=== PATIENT | male | born 2000 | race Caucasian/White ===

== ENCOUNTER 2021-04-14 16:28 | Inpatient (IN) | payer BC, SELFPAY ==
[2021-04-14] VITALS (7 sets, daily range): BP systolic 111–151; BP diastolic 64–94; PULSE 97–121; RESP 18–31; TEMP 37.2–39.6; O2SAT 89–93; BMI 38.9
--- NOTE | ~2021-04-14 | XR_ITS ---
EXAMINATION: XR CHEST CLINICAL INFORMATION: Cough, coronary 19 COMPARISON: None TECHNIQUE: Frontal view of the chest was obtained. FINDINGS: The lungs are moderately expanded with patchy opacities seen in both lungs suggestive of diffuse infiltrates. No pleural effusion. Heart size and pulmonary vascularity is normal. No gross bony abnormality seen. XR/XR chest 1V IMPRESSION: Findings consistent diffuse patchy bilateral infiltrates.
--- NOTE | ~2021-04-14 | CT_ITS ---
EXAMINATION: CT ANGIOGRAM OF THE CHEST WITH AND WITHOUT CONTRAST (CT PULMONARY ANGIOGRAM FOR PE) CLINICAL INFORMATION: Reason for Exam cough, hypoxia, covid 19 COMPARISON: April 14, 2021 TECHNIQUE: Prior to contrast administration, noncontrast localization images were obtained. Subsequently, multidetector volumetric imaging was performed from the thoracic inlet to below the diaphragms following the administration of 65 mL Omnipaque 350 intravenous contrast. No contrast reaction reported Sagittal, coronal, and MIP oblique sagittal reformatted images were obtained on the CT workstation, uploaded to PACS, and reviewed. This CT examination was performed using dose optimization techniques as appropriate, variously including the following: *Automated exposure control *Adjustment of mA and/or kV according to patient size (this includes techniques or standardized protocols for targeted exams where dose is matched to indication/reason for exam; i.e. extremities or head) *Use of iterative reconstruction technique Total exam dose-length product 229 mGy-cm FINDINGS: QUALITY OF STUDY/CONTRAST BOLUS: Satisfactory. Motion artifact is present degrading evaluation of more distal vessels. PULMONARY ARTERIES: No central or segmental pulmonary emboli. THORACIC AORTA: No aneurysm or dissection. LUNG: There is diffuse bilateral interstitial and airspace disease with air bronchograms present which has progressed significantly since study of April 14, 2021. PLEURA: No pleural effusion or pneumothorax. MEDIASTINUM: Normal heart size. No pericardial effusion. There is right hilar lymphadenopathy present. Evaluation of mediastinal lymphadenopathy is limited due to streak artifact from dense contrast material. No evidence of septal bowing or right heart strain. CHEST WALL/AXILLA: No axillary or internal mammary lymphadenopathy. OSSEOUS STRUCTURES: No acute or suspicious osseous abnormality. UPPER ABDOMEN: Unremarkable. No reflux of contrast into the hepatic veins to suggest elevated right heart pressures. CT/CT angio chest PE protocol IMPRESSION: Significant progression in diffuse bilateral interstitial and airspace disease since previous study of April 14, 2021. No evidence of acute pulmonary artery embolus or thoracic aortic dissection or aneurysm. VTE: negative
--- NOTE | ~2021-04-14 | XR_ITS ---
EXAMINATION: XR CHEST CLINICAL INFORMATION: Reevaluate Covid Pneumonia. COMPARISON: Chest 04/23/2021 TECHNIQUE: Frontal view of the chest was obtained. FINDINGS: There is diffuse bilateral interstitial and airspace disease with air bronchograms unchanged since 04/23/2011. The heart size and pulmonary vascularity is normal. No gross bony abnormality seen. XR/XR chest 1V IMPRESSION: Diffuse bilateral interstitial and airspace disease with air bronchograms unchanged since 04/23/2011.
--- NOTE | ~2021-04-14 | CT_ITS ---
EXAMINATION: CT ANGIOGRAM OF THE CHEST WITH AND WITHOUT CONTRAST (CT PULMONARY ANGIOGRAM FOR PE) CLINICAL INFORMATION: Reason for Exam hypoxia. Covid positi. PE? Pnuemonia? COMPARISON: None TECHNIQUE: Prior to contrast administration, noncontrast localization images were obtained. Subsequently, multidetector volumetric imaging was performed from the thoracic inlet to below the diaphragms following the administration of 80 mL Omnipaque 350 intravenous contrast. No contrast reaction reported Sagittal, coronal, and MIP oblique sagittal reformatted images were obtained on the CT workstation, uploaded to PACS, and reviewed. This CT examination was performed using dose optimization techniques as appropriate, variously including the following: *Automated exposure control *Adjustment of mA and/or kV according to patient size (this includes techniques or standardized protocols for targeted exams where dose is matched to indication/reason for exam; i.e. extremities or head) *Use of iterative reconstruction technique Total exam dose-length product 669 mGy-cm FINDINGS: QUALITY OF STUDY/CONTRAST BOLUS: Satisfactory. PULMONARY ARTERIES: No central or segmental pulmonary emboli. THORACIC AORTA: No aneurysm or dissection. LUNG: Bilateral, diffuse patchy groundglass airspace opacities which can be seen in the setting of atypical infectious processes. PLEURA: No pleural effusion or pneumothorax. MEDIASTINUM: Normal heart size. No pericardial effusion. No hilar or mediastinal lymphadenopathy. No evidence of septal bowing or right heart strain. CHEST WALL/AXILLA: No axillary or internal mammary lymphadenopathy. OSSEOUS STRUCTURES: No acute or suspicious osseous abnormality. UPPER ABDOMEN: Unremarkable. No reflux of contrast into the hepatic veins to suggest elevated right heart pressures. CT/CT angio chest PE protocol IMPRESSION: 1. No pulmonary embolism. 2. Diffuse bilateral patchy groundglass airspace opacities which can be seen in the setting of atypical infectious processes, including COVID-19 infection. VTE: negative
--- NOTE | 2021-04-14 16:50 | ECG_ITS ---
Test Reason : CHESTPAIN Blood Pressure : / mmHG Vent. Rate : 117 BPM Atrial Rate : 117 BPM P-R Int : 156 ms QRS Dur : 076 ms QT Int : 300 ms P-R-T Axes : 042 065 003 degrees QTc Int : 418 ms Sinus tachycardia T wave abnormality, consider lateral ischemia Abnormal ECG No previous ECGs available Referred By: Yao Ann Electronically Signed By:Best Lezama
[2021-04-14 17:25] LABS: Hemoglobin 16.5 g/dl (14.0-18.0); Mean Corpuscular HGB Conc 36.7 g/dl (31.0-36.0); Mean Corpuscular Hemoglobin 29.7 pg (27.0-33.0); Mean Corpuscular Volume 81.1 fL (80-98); Mean Platelet Volume 9.9 fL (9.4-12.4); Platelet Count 140 X10*3/uL (160-400); Red Blood Count 5.55 X10*6/uL (4.60-5.80); Red Cell Distribution Width 12.3 % (11.0-16.0)
[2021-04-14 17:26] LABS: COVID-19 Test Positive (Negative); IDNOW Serial# 9DD0AD1C
[2021-04-14 17:44] LABS: Anion Gap 18 (12-20); Blood Urea Nitrogen 10 mg/dL (9-16); Calcium 8.3 mg/dL (8.4-10.2); Carbon Dioxide 20 mmol/L (22-29); Chloride 96 mmol/L (96-108); Creatinine Clr Calc Pharmacy 185.2; Estimated Glomerular Filt Rate > 60; Glucose Random 109 mg/dL (60-115); Potassium 3.8 mmol/L (3.3-5.1); Sodium 130 mmol/L (135-145)
[2021-04-14] MEDS: 0.9 % Sodium Chloride 1,000 ML 999 ML IV (19:15)
--- NOTE | 2021-04-14 19:27 | ED_ITS ---
HPI - General Adult General Chief complaint: General Medical Stated complaint: Vomiting Time Seen by Provider: 04/14/21 18:53 Source: patient Mode of arrival: ambulatory Limitations: no limitations History of Present Illness HPI narrative: Patient presents to ED for COVID like symptoms. Patient presents to ED for shortness of breath, vomiting, and lethargy. Patient was referred from Urgent Care for hypoxia. Patient states this is day 7 of having COVID symptoms. Patient states he was exposed to his roommate. Related Data Home Medications Medication Instructions Recorded Confirmed No Known Home Meds 04/14/21 04/14/21 Allergies Allergy/AdvReac Type Severity Reaction Status Date / Time No Known Allergies Allergy Verified 04/14/21 16:50 Review of Systems Review of Systems: Yes all other systems are reviewed and are negative Constitutional: Constitutional: Reports as per HPI, Reports no additional constitutional complaints, Reports body ache(s), Reports chills and Reports fever(s) Eyes: Eyes: Reports as per HPI and Reports no additional eye complaints ENT: Reports system reviewed and no additional complaints, except as documented and Reports as per HPI Cardiovascular: Cardiovascular: Reports as per HPI, Reports no additional ca rdiovascular complaints and Reports dyspnea Respiratory: Respiratory: Reports as per HPI, Reports no additional respiratory complaints and Reports dyspnea Gastrointestinal: Gastrointestinal: Reports as per HPI and Reports no additional gastrointestinal complaints Musculoskeletal: Musculoskeletal: Reports no additional musculoskeletal co mplaints and Reports as per HPI Integumentary/Breasts: Skin/Breast: Reports system reviewed and no additional complaints, except as docu and Reports as per HPI [facility] Social History Social History Alcohol intake: current Alcohol intake frequency: a few times a week Patient Tobacco Use Status: Never used Tobacco Use of substances other than those prescribed or required for medical reasons: No Advance Directives: No Advance Directives Information Provided: No Physical Exam Vital Signs: Vital Signs: Last Vital Signs Temp 99.0 F 04/14/21 22:25 Pulse 97 04/14/21 22:25 Resp 30 H 04/14/21 22:25 BP 125/70 04/14/21 22:25 Pulse Ox 91 L 04/14/21 22:25 Oxygen Flow Rate 3 04/14/21 18:07 Body Mass Index 38.9 Const: General: cooperative, healthy appearing, comfortable and well developed Orientation/consciousness: patient oriented x3 HENMT: Head: Yes normal to inspection, Yes No palpable skull fracture present and Yes normocephalic Eyes: General: appearance normal, both eyes and all related structures Neck: Neck: Yes normal visual inspection, Yes full ROM, Yes no lymphadenopath y, Yes no meningeal signs, Yes trachea midline, Yes supple and No tender Chest: Chest palpation & inspection: normal inspection of the chest and normal palpation of entire chest wall Resp: Other: Hypoxic Effort & Inspection: normal respiratory effort and able to speak in complete sentences Cardio: Jugular venous distension: no JVD Heart sounds: S1 normal heart sound present and S2 normal heart sound present GI: Inspection: Yes normal to inspection and Yes abdominal wall ecchymosis Palpation (GI): Soft to palpation, not firm, nontender, no guarding and not rigid : General: No CVA tenderness and Yes no CVA tenderness Back/Spine/Pelvis: Back: no CVA tenderness, No CVA tenderness and No back tenderness Skin: General skin exam: no rashes or lesions noted and elasticity normal Neuro: General: patient oriented x3, gait normal, no meningeal signs and CN's II-XI intact bilaterally Cranial nerves: Yes CN's II-XII intact bilaterally Extrem: General: Yes normal to inspection and Yes full ROM Course Course Course Narrative: Patient will have medical evaluation. Reevaluation(s) Reevaluation #1: Patient desaturated oxygen 89% on room air. Decadron ordered. IV antibiotics and fluids ordered. Patient was sent for chest CT to rule out PE a COVID pneumonia. Patient will be admitted. Time: 07:34 Reevaluation #2: Case presented hospitalist. Patient to be admitted for hypoxia due to COVID. Chest CTA pending. On room air O2 saturation 85%. On 3 L oxygen O2 sat 93% Time: 20:58 Reevaluation #3: Chest CT shows COVID pneumonia. Time: 22:54 Medical Decision Making MDM Narrative Medical decision making narrative: COVID pneumonia Lab Data Result diagrams: 04/14/21 17:12 04/14/21 17:12 Labs: Lab Results 04/14/21 04/14/21 04/14/21 Range/Units 17:12 17:12 17:12 WBC 4.0 L (4.8-10.8) X10*3/uL RBC 5.55 (4.60-5.80) X10*6/uL Hgb 16.5 (14.0-18.0) g/dl Hct 45.0 (42-52) % MCV 81.1 (80-98) fL MCH 29.7 (27.0-33.0) pg MCHC 36.7 H (31.0-36.0) g/dl RDW 12.3 (11.0-16.0) % Plt Count 140 L (160-400) X10*3/uL MPV 9.9 (9.4-12.4) fL Absolute Nucleated RBC 0.000 (0.0-0.012) X10*3/uL Nucleated RBC % (auto) 0.0 (0.0-0.2) /100WBC Sodium 130 L (135-145) mmol/L Potassium 3.8 (3.3-5.1) mmol/L Chloride 96 (96-108) mmol/L Carbon Dioxide 20 L (22-29) mmol/L Anion Gap 18 (12-20) BUN 10 (9-16) mg/dL Creatinine 0.88 (0.5-1.4) mg/dL Estim Creat Clear Calc 185.2 Estimated GFR > 60 Random Glucose 109 (60-115) mg/dL Lactic Acid (0.5-2.0) mmol/L Calcium 8.3 L (8.4-10.2) mg/dL Troponin I High Sens (<3.5-35.0) ng/L COVID-19 (SUZE) Positive A (Negative) COVID-19 Clin Com See Note 04/14/21 04/14/21 Range/Units 19:39 19:39 WBC (4.8-10.8) X10*3/uL RBC (4.60-5.80) X10*6/uL Hgb (14.0-18.0) g/dl Hct (42-52) % MCV (80-98) fL MCH (27.0-33.0) pg MCHC (31.0-36.0) g/dl RDW (11.0-16.0) % Plt Count (160-400) X10*3/uL MPV (9.4-12.4) fL Absolute Nucleated RBC (0.0-0.012) X10*3/uL Nucleated RBC % (auto) (0.0-0.2) /100WBC Sodium (135-145) mmol/L Potassium (3.3-5.1) mmol/L Chloride (96-108) mmol/L Carbon Dioxide (22-29) mmol/L Anion Gap (12-20) BUN (9-16) mg/dL Creatinine (0.5-1.4) mg/dL Estim Creat Clear Calc Estimated GFR Random Glucose (60-115) mg/dL Lactic Acid 1.4 (0.5-2.0) mmol/L Calcium (8.4-10.2) mg/dL Troponin I High Sens 9.7 (<3.5-35.0) ng/L COVID-19 (SUZE) (Negative) COVID-19 Clin Com ECG Data Interpretation: Sinus tachycardia. Ventricular rate 117. Pr interval 156. QRS 76. QTC 418. Negative STEMI Discharge Plan Discharge Clinical Impression: Pneumonia due to 2019-nCoV Patient Disposition: Admitted As Inpatient
[2021-04-14] MEDS: cefTRIAXone sodium 1 GM in 0.9 % Sodium Chloride 50 ML IV (19:40)
[2021-04-14] MEDS: Ketorolac Tromethamine 15 MG/ML VIAL IVPUSH (19:40)
[2021-04-14] MEDS: dexAMETHasone sod phosphate 10 MG/ML VIAL IVPUSH (19:40)
[2021-04-14] MEDS: iohexoL 350 MG/ML 100 ML INFUS..BTL IV (19:57)
[2021-04-14 20:15] LABS: Troponin-I High Sensitivity 9.7 ng/L (<3.5-35.0)
[2021-04-14 20:22] LABS: Lactic Acid 1.4 mmol/L (0.5-2.0)
[2021-04-14] MEDS: Azithromycin 500 MG in 0.9 % Sodium Chloride 250 ML 125 MG IV (20:26)
[2021-04-14] MEDS: Acetaminophen 325 MG TABLET 650 MG PO (20:45)
--- NOTE | 2021-04-14 22:20 | PM.IMHP ---
History of Present Illness Date of Service: 04/14/21 Chief Complaint: Shortness of breath 20-year-old male with no significant past medical history presented to the hospital with a chief complaint of shortness of breath. Patient reports that his roommate has COVID-19 positive and was exposed about 7 days ago and over the past few days he has been having generalized weakness/with the dizziness shortness of breath/dyspnea on exertion, dry cough. Denies any chest pain or palpitations. Complains of subjective fevers. Denies any sputum production. Patient does complains of nausea vomiting and diarrhea; denies any abdominal discomfort. Denies any symptoms. Review of all other systems is negative except mentioned above ER course: Per ER team patient on presentation noted to be 85% on room air, not in respiratory distress; on 2 L of oxygen patient oxygenation improved to 93%. CT chest showed no evidence of pulmonary embolism but noted diffuse ground-glass opacities consistent COVID-19 infection. Patient also received empiric ceftriaxone and azithromycin. Admitted to the hospital for further management. [facility] Medical History Acquired respiratory distress syndrome Social History Household Members: Friend(s) Housing: Apartment Do you presently have visiting nurse or other home services: No Alcohol intake: current Alcohol intake frequency: a few times a week Patient Tobacco Use Status: Never used Tobacco service: No Meds Allergies Allergy/AdvReac Type Severity Reaction Status Date / Time No Known Allergies Allergy Verified 04/14/21 16:50 Active Medications: Current Medications Generic Name Dose Route Start Last Admin Trade Name Freq PRN Reason Stop Dose Admin Acetaminophen 650 mg 04/14/21 22:14 Acetaminophen 325 Mg Tablet PO Q6H PRN Pain, Mild (Pain Scale 1-3) Albuterol Sulfate 2 puff 04/14/21 22:14 Albuterol Sulfate 90 Mcg 8 Gm Inhaler INHALE RQ4H PRN Shortness of Breath/Wheezing Azithromycin 500 mg 04/14/21 22:15 Azithromycin 500 Mg Tablet PO Q24H JUSTIN Dexamethasone 6 mg 04/15/21 09:00 Dexamethasone 6 Mg Tablet PO DAILY JUSTIN Enoxaparin Sodium 40 mg 04/14/21 22:15 Enoxaparin Sodium 40 Mg/0.4 Ml Syringe SUBCUT Q24H [facility] Ceftriaxone Sodium 1 gm/ 50 mls @ 100 mls/hr 04/14/21 22:15 Sodium Chloride IV Q24H JUSTIN Melatonin 6 mg 04/14/21 22:14 Melatonin 3 Mg Tablet PO BEDTIME PRN Insomnia Morphine Sulfate 1 mg 04/14/21 22:14 Morphine Sulfate 4 Mg/Ml Cartridge IVPUSH Q4H PRN SOB/Restlessness Senna 17.2 mg 04/14/21 22:14 Sennosides 8.6 Mg Tablet PO BEDTIME PRN Constipation Sodium Chloride 3 ml 04/15/21 00:00 0.9 % Sodium Chloride Flush 3 Ml Syringe IVFLUSH QSHIFT [facility] Home Medications Medication Instructions Recorded Confirmed Last Taken Type No Known Home Meds 04/14/21 04/14/21 Unknown History Physical Exam Vital Signs and Narrative: Vital Signs: Last Vital Signs Temp 103.2 F H 04/14/21 20:27 Pulse 116 H 04/14/21 20:27 Resp 28 H 04/14/21 20:27 BP 113/64 04/14/21 20:49 Pulse Ox 91 L 04/14/21 20:27 Oxygen Flow Rate 3 04/14/21 18:07 Body Mass Index 38.9 Gen: Appears be in no acute distress HEENT: NCAT, Moist mucosa. Pulmonary: Coarse breath sounds CVS: Normal S1-S2 Abdomen: BS+, Soft, Nontender Extremities: Warm well perfused Neuro: Alert and awake. Results Labs CBC and Chem 7: 05/01/21 05:26 05/01/21 05:26 Labs: Laboratory Results - last 24 hr 04/14/21 04/14/21 04/14/21 17:12 17:12 17:12 MCV 81.1 MCH 29.7 MCHC 36.7 H RDW 12.3 Plt Count 140 L MPV 9.9 Absolute Nucleated RBC 0.000 Nucleated RBC % (auto) 0.0 Anion Gap 18 Estim Creat Clear Calc 185.2 Estimated GFR > 60 Random Glucose 109 Lactic Acid Calcium 8.3 L Troponin I High Sens COVID-19 (SUZE) Positive A COVID-19 Clin Com See Note 04/14/21 04/14/21 19:39 19:39 MCV MCH MCHC RDW Plt Count MPV Absolute Nucleated RBC Nucleated RBC % (auto) Anion Gap Estim Creat Clear Calc Estimated GFR Random Glucose Lactic Acid 1.4 Calcium Troponin I High Sens 9.7 COVID-19 (SUZE) COVID-19 Clin Com Imaging Radiologist's Impressions: Impressions Chest CTA 04/14/21 19:18 IMPRESSION: 1. No pulmonary embolism. 2. Diffuse bilateral patchy groundglass airspace opacities which can be seen in the setting of atypical infectious processes, including COVID-19 infection. VTE: negative Assessment and Plan (1) Acquired respiratory distress syndrome: Status: Acute 20-year-old male with with no significant past medical history presented to the hospital with a chief complaint of shortness of breath/dyspnea on exertion; has history of COVID-19 exposure. Noted to be acute hypoxia secondary to positive COVID-19 infection. Admitted for further management. Acute hypoxic respiratory failure: In the setting of COVID-19 pneumonia. Patient not in respiratory distress. On 2 L of supplemental oxygen patient is saturating 93-95%. Albuterol inhaler p.r.n.. encouraged prone positioning. Continue Decadron 6 mg p.o. daily. Continue ceftriaxone azithromycin empirically. Will consult Infectious Disease for further recommendation. Of note: Patient has not been vaccinated with COVID-19 vaccine. Nausea vomiting/diarrhea: Likely in the setting of COVID-19 infection. Supportive care. GI prophylaxis: Pepcid DVT prophylaxis: Lovenox Code status: Full code Quality Stroke Does the patient have a stroke diagnosis?: No VTE Prior VTE?: No VTE Risk Level:: Medical - moderate - high VTE Device Contraindication: Treatment Not Indicated VTE Drug Contraindication: N/A - Med Ordered
[2021-04-14] MEDS: Enoxaparin Sodium 40 MG/0.4 ML SYRINGE SUBCUT (22:49)
[2021-04-15] VITALS (7 sets, daily range): BP systolic 125–151; BP diastolic 68–86; PULSE 74–97; RESP 18–20; TEMP 36.4–37.6; O2SAT 90–94; BMI 38.4
--- NOTE | 2021-04-15 00:32 | PC.NURSE ---
nurse to nurse given to simone SINGH on [facility]
[2021-04-15] MEDS: 0.9 % Sodium Chloride Flush 3 ML SYRINGE IVFLUSH ×3 (01:50→20:41)
[2021-04-15 03:19] LABS: D Dimer 4162 NG/ML
[2021-04-15] MEDS: Acetaminophen 325 MG TABLET 650 MG PO ×2 (04:35→20:41)
[2021-04-15 06:00] LABS: MANUAL DIFF FLAG NO
[2021-04-15 06:04] LABS: Basophils Percent Auto 0.2 % (0-2); Hematocrit 46.2 % (42-52); Hemoglobin 16.3 g/dl (14.0-18.0); Imm Gran Abs Auto 0.02 X10*3/uL (0.00-0.03); Imm Gran Pct Auto 0.5 % (0.0-0.4); Lymphocytes Percent Auto 23.1 % (20-40); Mean Corpuscular HGB Conc 35.3 g/dl (31.0-36.0); Mean Corpuscular Hemoglobin 29.9 pg (27.0-33.0); Mean Corpuscular Volume 84.8 fL (80-98); Mean Platelet Volume 11.9 fL (9.4-12.4); Monocytes Absolute Auto 0.4 X10*3/uL (0.1-1.2); Monocytes Percent Auto 8.7 % (2-11); Neutrophils Absolute Auto 2.8 X10*3/uL (2.0-8.3); Neutrophils Percent Auto 67.5 % (45-73); Red Blood Count 5.45 X10*6/uL (4.60-5.80); Red Cell Distribution Width 12.8 % (11.0-16.0); White Blood Count 4.2 X10*3/uL (4.8-10.8)
[2021-04-15 06:39] LABS: Anion Gap 20 (12-20); Blood Urea Nitrogen 14 mg/dL (9-16); Calcium 8.4 mg/dL (8.4-10.2); Carbon Dioxide 19 mmol/L (22-29); Chloride 101 mmol/L (96-108); Creatinine Clr Calc Pharmacy 170.3; Estimated Glomerular Filt Rate > 60; Glucose Random 133 mg/dL (60-115); Potassium 4.6 mmol/L (3.3-5.1); Sodium 135 mmol/L (135-145)
[2021-04-15 08:18] LABS: Ferritin 4409 ng/mL (20-250)
[2021-04-15] MEDS: dexAMETHasone sod phosphate 4 MG/ML VIAL 6 MG IVPUSH (09:01)
--- NOTE | 2021-04-15 09:50 | MHC.CM.PN ---
talked with pt who is independent and working it is not expected that he will need care when dcd
--- NOTE | 2021-04-15 10:56 | HO.PM.IMPN ---
Subjective Subjective Date of Service: 04/15/21 Interval History: seen and examined this AM he reports breathing slightly easier this AM ambulated in the room without much SOB (while on O2) Reports his symptoms started about 8 days ago. Reports he was at a bar prior to symptoms Reports he is unvaccinated asked him if he would like me to discuss with his family about his care -- he reports he has already spoken with his father on the phone Physical Exam Vital Signs: Vital Signs: Last Vital Signs Temp 97.6 F 04/15/21 08:00 Pulse 79 04/15/21 08:00 Resp 20 04/15/21 08:00 BP 141/86 H 04/15/21 08:00 Pulse Ox 93 04/15/21 08:00 Oxygen Flow Rate 3 04/14/21 18:07 Body Mass Index 38.4 General - no acute distress, appears comfortable Cardiovascular - RRR Lungs - no visible distress; auscultation deferred Abdomen - soft, nontender, no rebound or guarding Extremities - no edema bilaterally Neuro - awake and alert, no focal deficits Objective Data Current Medications Generic Name Dose Route Start Last Admin Trade Name Toddq PRN Reason Stop Dose Admin Acetaminophen 650 mg 04/14/21 22:14 04/15/21 04:35 Acetaminophen 325 Mg Tablet PO 650 mg Q6H PRN Administration Pain, Mild (Pain Scale 1-3) Albuterol Sulfate 2 puff 04/14/21 22:14 Albuterol Sulfate 90 Mcg 8 Gm Inhaler INHALE RQ4H PRN Shortness of Breath/Wheezing Dexamethasone Sodium Phosphate 6 mg 04/15/21 09:00 04/15/21 09:01 Dexamethasone Sod Phosphate 4 Mg/Ml Vial IVPUSH 04/24/21 09:01 6 mg DAILY JUSTIN Administration Enoxaparin Sodium 40 mg 04/14/21 22:15 04/14/21 22:49 Enoxaparin Sodium 40 Mg/0.4 Ml Syringe SUBCUT 40 mg Q24H JUSTIN Administration Melatonin 6 mg 04/14/21 22:14 Melatonin 3 Mg Tablet PO BEDTIME PRN Insomnia Morphine Sulfate 1 mg 04/14/21 22:31 Morphine Sulfate 2 Mg/Ml Cartridge IVPUSH Q4H PRN SOB/Restlessness Senna 17.2 mg 04/14/21 22:14 Sennosides 8.6 Mg Tablet PO BEDTIME PRN Constipation Sodium Chloride 3 ml 04/15/21 00:00 04/15/21 09:02 0.9 % Sodium Chloride Flush 3 Ml Syringe IVFLUSH 3 ml QSHIFT JUSTIN Administration Labs CBC & Chem 7: 04/15/21 05:25 04/15/21 05:25 Labs: Laboratory Results - last 24 hr 04/14/21 04/14/21 04/14/21 17:12 17:12 17:12 MCV 81.1 MCH 29.7 MCHC 36.7 H RDW 12.3 Plt Count 140 L MPV 9.9 Immature Gran % (Auto) Neut % (Auto) Lymph % (Auto) [place] % (Auto) Eos % (Auto) Baso % (Auto) Lymph # (Auto) [place] # (Auto) Eos # (Auto) Baso # (Auto) Abs Immat Gran (auto) Absolute Neuts (auto) Absolute Nucleated RBC 0.000 Nucleated RBC % (auto) 0.0 D-Dimer Anion Gap 18 Estim Creat Clear Calc 185.2 Estimated GFR > 60 Random Glucose 109 Lactic Acid Calcium 8.3 L Ferritin Troponin I High Sens COVID-19 (SUZE) Positive A COVID-19 Clin Com See Note 04/14/21 04/14/21 04/15/21 19:39 19:39 02:36 MCV MCH MCHC RDW Plt Count MPV Immature Gran % (Auto) Neut % (Auto) Lymph % (Auto) [place] % (Auto) Eos % (Auto) Baso % (Auto) Lymph # (Auto) [place] # (Auto) Eos # (Auto) Baso # (Auto) Abs Immat Gran (auto) Absolute Neuts (auto) Absolute Nucleated RBC Nucleated RBC % (auto) D-Dimer 4162 Anion Gap Estim Creat Clear Calc Estimated GFR Random Glucose Lactic Acid 1.4 Calcium Ferritin Troponin I High Sens 9.7 COVID-19 (SUZE) COVID-19 Clin Com 04/15/21 04/15/21 05:25 05:25 MCV 84.8 MCH 29.9 MCHC 35.3 RDW 12.8 Plt Count TNP MPV 11.9 Immature Gran % (Auto) 0.5 H Neut % (Auto) 67.5 Lymph % (Auto) 23.1 [place] % (Auto) 8.7 Eos % (Auto) 0.0 Baso % (Auto) 0.2 Lymph # (Auto) 1.0 L [place] # (Auto) 0.4 Eos # (Auto) 0.0 Baso # (Auto) 0.0 Abs Immat Gran (auto) 0.02 Absolute Neuts (auto) 2.8 Absolute Nucleated RBC 0.000 Nucleated RBC % (auto) 0.0 D-Dimer Anion Gap 20 Estim Creat Clear Calc 170.3 Estimated GFR > 60 Random Glucose 133 H Lactic Acid Calcium 8.4 Ferritin 4409 H Troponin I High Sens COVID-19 (SUZE) COVID-19 Clin Com Assessment and Plan (1) COVID-19: Status: Acute Assessment and Plan: This is a 20 yo M, who is unvaccinated for COVID-19, who initially went to urgent care for GI symptoms and was referred to the ED. He has been diagnosed with COVID-19 with typical findings on the CT scan. He is admitted for further treatment. 1. Acute Respiratory Failure with Hypoxia due to COVID 19 Saturations dropped to 85% on RA while in the ED saturations now 92+ on 3-4L by [place] Trend inflammatory biomarkers IV decadron 6mg - day 10/23 ID consult to see if Remdesivir would help, although he is now 8 days with symptoms and likely 10+ days from exposure 2. Viral Sepsis sepsis improving met sepsis criteria with tachypnea (in the 30s), tachycardia (120s), Fevers (TMax 103+), Leukopenia (4) No evidence of bacterial infection at this time, discontinue IV antibiotics Full Code DVT pptx, Lovenox Quality Stroke Does the patient have a stroke diagnosis?: No VTE Prior VTE?: No VTE Risk Level:: Medical - moderate - high VTE Device Contraindication: Treatment Not Indicated VTE Drug Contraindication: N/A - Med Ordered
[2021-04-15 11:45] LABS: Alanine Aminotransferase 164 U/L (0-40); Albumin Level 3.5 g/dL (3.5-5.0); Alkaline Phosphatase 42 U/L (39-117); Aspartate Amino Transferase 265 U/L (5-37); Bilirubin Direct 0.2 mg/dL (0.0-0.5); Bilirubin Total 0.5 mg/dL (0.0-1.0); C Reactive Protein 5.07 mg/dL (< or = 0.50); Lactate Dehydrogenase 1282 U/L (118-273); Total Protein 6.5 g/dL (6.5-8.0)
[2021-04-15 12:09] LABS: Procalcitonin 0.55 ng/mL
--- NOTE | 2021-04-15 16:22 | P.CNID_ITS ---
History of Present Illness Data of Consult Service Date: 04/15/21 Requesting physician: Gee Saucedo Primary Care Provider: Pedro Whitmore MD HPI Reason for consult: COVID pneumonia He presents to hospital day 7 symptoms of shortness of breath and cough He has fatigue His two roommates are ill Review of Systems Review of Systems: Yes all other systems are reviewed and are negative PMFSH Social History Social History Household Members: Friend(s) Housing: Apartment Do you presently have visiting nurse or other home services: No Alcohol intake: current Alcohol intake frequency: a few times a week Patient Tobacco Use Status: Never used Tobacco Use of substances other than those prescribed or required for medical reasons: No Currently Displaying Signs/Symptoms of Drug Intoxication Withdrawal: No Have you been hit, kicked, punched, or otherwise hurt by someone within the past year? If so, by whom?: No Do you feel safe in your current relationship?: No Current Relationship Is there a partner from a previous relationship who is making you feel unsafe now?: No Are you made to feel afraid or neglected: No Advance Directives: No Advance Directives Information Provided: No Advance Directives on File: No Do you have thoughts of harming others: None Do you have a plan to hurt others: No Plan Recently lost weight without trying: No Nutrition Risks: No Nutritional Risk Poor oral hygiene: No service: No Meds Allergies Allergy/AdvReac Type Severity Reaction Status Date / Time No Known Allergies Allergy Verified 04/14/21 16:50 Active Medications: Current Medications Generic Name Dose Route Start Last Admin Trade Name Freq PRN Reason Stop Dose Admin Acetaminophen 650 mg 04/14/21 22:14 04/15/21 04:35 Acetaminophen 325 Mg Tablet PO 650 mg Q6H PRN Administration Pain, Mild (Pain Scale 1-3) Albuterol Sulfate 2 puff 04/14/21 22:14 Albuterol Sulfate 90 Mcg 8 Gm Inhaler INHALE RQ4H PRN Shortness of Breath/Wheezing Dexamethasone Sodium Phosphate 6 mg 04/15/21 09:00 04/15/21 09:01 Dexamethasone Sod Phosphate 4 Mg/Ml Vial IVPUSH 04/24/21 09:01 6 mg DAILY JUSTIN Administration Enoxaparin Sodium 40 mg 04/14/21 22:15 04/14/21 22:49 Enoxaparin Sodium 40 Mg/0.4 Ml Syringe SUBCUT 40 mg Q24H JUSTIN Administration Melatonin 6 mg 04/14/21 22:14 Melatonin 3 Mg Tablet PO BEDTIME PRN Insomnia Morphine Sulfate 1 mg 04/14/21 22:31 Morphine Sulfate 2 Mg/Ml Cartridge IVPUSH Q4H PRN SOB/Restlessness Senna 17.2 mg 04/14/21 22:14 Sennosides 8.6 Mg Tablet PO BEDTIME PRN Constipation Sodium Chloride 3 ml 04/15/21 00:00 04/15/21 15:29 0.9 % Sodium Chloride Flush 3 Ml Syringe IVFLUSH Not Given QSHIFT [facility] Home Medications Medication Instructions Recorded Confirmed Last Taken Type No Known Home Meds 04/14/21 04/14/21 Unknown History Physical Exam Vital Signs: Vital Signs: Last Vital Signs Temp 98.5 F 04/15/21 15:53 Pulse 88 04/15/21 15:53 Resp 19 04/15/21 15:53 BP 137/71 04/15/21 15:53 Pulse Ox 93 04/15/21 15:53 Oxygen Flow Rate 3 04/14/21 18:07 Body Mass Index 38.4 Const: General: cooperative and no acute distress HENMT: Head: Yes normal to inspection Mouth: Normal oral and palatal mucosa present Resp: Effort & Inspection: normal respiratory effort and able to speak in complete sentences Cardio: Rate: regular rate Rhythm: regular rhythm GI: Inspection: Yes obesity Skin: General skin exam: no rashes or lesions noted Results Labs CBC & Chem 7: 04/15/21 05:25 04/15/21 05:25 Labs: Short CBC 04/14/21 04/15/21 Range/Units 17:12 05:25 WBC 4.0 L 4.2 L (4.8-10.8) X10*3/uL Hgb 16.5 16.3 (14.0-18.0) g/dl Hct 45.0 46.2 (42-52) % Plt Count 140 L TNP (160-400) X10*3/uL BMP 04/14/21 04/15/21 17:12 05:25 Sodium 130 L 135 Potassium 3.8 4.6 D Chloride 96 101 Carbon Dioxide 20 L 19 L BUN 10 14 Creatinine 0.88 0.95 Calcium 8.3 L 8.4 Liver Function 04/15/21 Range/Units 05:25 Total Bilirubin 0.5 (0.0-1.0) mg/dL Direct Bilirubin 0.2 (0.0-0.5) mg/dL AST 265 H (5-37) U/L ALT 164 H (0-40) U/L Alkaline Phosphatase 42 (39-117) U/L Albumin 3.5 (3.5-5.0) g/dL Assessment and Plan (1) COVID-19: Status: Acute He has hypoxia He has COVID pneumonia likely His risk factor for hospitalization is high BMI He has oxygen nasal cannula Suggest Continue oxygen Would continue Dexamethasone No additional treatment at this time If requires high flow continue Dexamethasone Check CRP Order Tocilizimab possibly Remdesivir of possible less benefit (2) Intractable vomiting: Status: Acute
[2021-04-15] MEDS: Enoxaparin Sodium 40 MG/0.4 ML SYRINGE SUBCUT (20:41)
[2021-04-15] MEDS: Melatonin 3 MG TABLET 6 MG PO (20:41)
[2021-04-15] MEDS: Benzonatate 100 MG CAPSULE PO (23:38)
[2021-04-16] VITALS (10 sets, daily range): BP systolic 114–140; BP diastolic 56–72; PULSE 80–107; RESP 15–24; TEMP 37.2–39.3; O2SAT 86–93
[2021-04-16] MEDS: Albuterol Sulfate 90 MCG 8 GM INHALER 2 PUFF INHALE (01:49)
[2021-04-16] MEDS: Morphine Sulfate 2 MG/ML CARTRIDGE 1 MG IVPUSH ×2 (02:03→05:30)
[2021-04-16 03:54] LABS: ABG Refer to POC result
[2021-04-16 03:55] LABS: ABG HCO3 18 mmol/L (22-26); ABG pCO2 17 mmHg (32-45); ABG pCO2 TC 17 mmHg (32-45); ABG pH 7.63 (7.35-7.45); ABG pH TC 7.64 (7.35-7.45); ABG pO2 63 mmHg (83-108); ABG pO2 TC 61 (83-108)
[2021-04-16] MEDS: Acetaminophen 325 MG TABLET 650 MG PO ×2 (04:36→21:58)
[2021-04-16] MEDS: Piperacillin Sodium/Tazobactam 3.375 GM in 0.9 % Sodium Chloride 50 ML IV (04:36)
[2021-04-16 04:57] LABS: D Dimer 3182 NG/ML
[2021-04-16 05:11] LABS: C Reactive Protein 2.75 mg/dL (< or = 0.50); Erythrocyte Sedimentation Rate 10 MM/HR (0-15)
[2021-04-16 05:22] LABS: Lactate Dehydrogenase 1070 U/L (118-273)
[2021-04-16] MEDS: vancomycin HCL 1,000 MG in 0.9 % Sodium Chloride 250 ML 270 MG IV (05:22)
[2021-04-16 06:00] LABS: Ferritin 3704 ng/mL (20-250)
--- NOTE | 2021-04-16 07:31 | PC.NURSE ---
Overnight patient became increasingly hypoxic with increased work of breathing and febrile. Respiratory increased patients O2 to 15L on the Graham Cannula from 4L NC. Patient satting between 86-90% on the 15L. Attempted to prone patient, he was unable to tolerate it due to nausea, and he felt the need to self-induce vomit. PRN Zofran was given with good effect. Patient was educated on importance of proning. Dr Mccann was made aware, stat ABGs were obtained. Critical ABG ph 7.64, pCO2 17. PRN Morphine was given for increased RR and restlessness with good effect. Patient became febrile, oral temp 102.7, PRN tylenol was given and ice packs were applied to the patient. Siobhan ordered IV Vanco Q12 and Zosyn Q8. A second IV was placed. Patient is on tele, with continuous pulse ox. Now resting comfortably in bed, reports feeling tired but less short of breath . Currently satting 92% on 15L Graham Cannula.
[2021-04-16 08:20] LABS: Anion Gap 17 (12-20); Basophils Percent Auto 0.1 % (0-2); Blood Urea Nitrogen 15 mg/dL (9-16); Calcium 8.2 mg/dL (8.4-10.2); Carbon Dioxide 23 mmol/L (22-29); Chloride 100 mmol/L (96-108); Creatinine Clr Calc Pharmacy 188.1; Estimated Glomerular Filt Rate > 60; Glucose Random 106 mg/dL (60-115); Hematocrit 44.9 % (42-52); Hemoglobin 16.2 g/dl (14.0-18.0); Imm Gran Abs Auto 0.07 X10*3/uL (0.00-0.03); Imm Gran Pct Auto 0.8 % (0.0-0.4); Lymphocytes Absolute Auto 1.1 X10*3/uL (1.2-4.9); Lymphocytes Percent Auto 13.4 % (20-40); MANUAL DIFF FLAG SCAN; Mean Corpuscular HGB Conc 36.1 g/dl (31.0-36.0); Mean Corpuscular Hemoglobin 29.9 pg (27.0-33.0); Mean Corpuscular Volume 82.8 fL (80-98); Monocytes Absolute Auto 0.5 X10*3/uL (0.1-1.2); Monocytes Percent Auto 5.5 % (2-11); Neutrophils Absolute Auto 6.8 X10*3/uL (2.0-8.3); Neutrophils Percent Auto 80.2 % (45-73); PLT CLUMP 1; Potassium 3.7 mmol/L (3.3-5.1); Red Blood Count 5.42 X10*6/uL (4.60-5.80); Red Cell Distribution Width 12.8 % (11.0-16.0); SCAN SMEAR FLAG 1; Sodium 136 mmol/L (135-145)
[2021-04-16 08:37] LABS: White Blood Count 8.4 X10*3/uL (4.8-10.8)
[2021-04-16 08:38] LABS: SLIDE REVIEW VERIFIED
[2021-04-16] MEDS: 0.9 % Sodium Chloride Flush 3 ML SYRINGE IVFLUSH ×2 (09:32→19:29)
[2021-04-16] MEDS: dexAMETHasone sod phosphate 4 MG/ML VIAL 6 MG IVPUSH (09:32)
--- NOTE | 2021-04-16 10:52 | HO.PM.IMPN ---
Subjective Subjective Date of Service: 04/16/21 Interval History: seen and examined this AM reports having a hard time taking a deep breath denies any chest pain reports fevers reports okay to discuss his case with his mother, whom he nominates has health care proxy. Physical Exam Vital Signs: Vital Signs: Last Vital Signs Temp 99.1 F 04/16/21 08:00 Pulse 99 04/16/21 08:00 Resp 23 H 04/16/21 08:00 BP 117/63 04/16/21 08:00 Pulse Ox 93 04/16/21 08:00 Oxygen Flow Rate 3 04/14/21 18:07 Body Mass Index 38.4 Const: Other: General - no major distress Cardiovascular - regular rate and rhythm, S1-S2 Lungs - mild tachypnea Abdomen - soft, nontender, no rebound or guarding Extremities - no edema bilaterally Neuro - awake and alert, no focal deficits Objective Data Current Medications Generic Name Dose Route Start Last Admin Trade Name Freq PRN Reason Stop Dose Admin Acetaminophen 650 mg 04/14/21 22:14 04/16/21 04:36 Acetaminophen 325 Mg Tablet PO 650 mg Q6H PRN Administration Pain, Mild (Pain Scale 1-3) Albuterol Sulfate 2 puff 04/14/21 22:14 04/16/21 01:49 Albuterol Sulfate 90 Mcg 8 Gm Inhaler INHALE 2 puff RQ4H PRN Administration Shortness of Breath/Wheezing Benzonatate 100 mg 04/15/21 23:07 04/15/21 23:38 Benzonatate 100 Mg Capsule PO 100 mg TID PRN Administration Cough Dexamethasone Sodium Phosphate 6 mg 04/15/21 09:00 04/16/21 09:32 Dexamethasone Sod Phosphate 4 Mg/Ml Vial IVPUSH 04/24/21 09:01 6 mg DAILY JUSTIN Administration Enoxaparin Sodium 40 mg 04/14/21 22:15 04/15/21 20:41 Enoxaparin Sodium 40 Mg/0.4 Ml Syringe SUBCUT 40 mg Q24H JUSTIN Administration Piperacillin Sod/Tazobactam 50 mls @ 100 mls/hr 04/16/21 05:00 04/16/21 06:15 Sod 3.375 gm/ Sodium Chloride IV Infused Q8H JUSTIN Infusion Vancomycin HCl 1,250 mg/ 250 mls @ 166.667 mls/hr 04/16/21 13:00 Sodium Chloride IV Q12H [facility] Tocilizumab 800 mg/ Sodium 100 mls @ 100 mls/hr 04/16/21 09:00 04/16/21 10:42 Chloride IV Infused ONCE [facility] Infusion Melatonin 6 mg 04/14/21 22:14 04/15/21 20:41 Melatonin 3 Mg Tablet PO 6 mg BEDTIME PRN Administration Insomnia Morphine Sulfate 2 mg 04/16/21 08:34 Morphine Sulfate 2 Mg/Ml Cartridge IVPUSH Q4H PRN SOB/Restlessness Ondansetron HCl 4 mg 04/16/21 02:28 04/16/21 02:51 Ondansetron Hcl 4 Mg/2 Ml Vial IVPUSH 4 mg Q8H PRN Administration Nausea and Vomiting Pharmacy Consult 1 each 04/16/21 04:09 Consult Rx Vancomycin Dosing MISCELLANE DAILY PRN Consult order Senna 17.2 mg 04/14/21 22:14 Sennosides 8.6 Mg Tablet PO BEDTIME PRN Constipation Sodium Chloride 3 ml 04/15/21 00:00 04/16/21 09:32 0.9 % Sodium Chloride Flush 3 Ml Syringe IVFLUSH 3 ml QSHIFT JUSTIN Administration Labs CBC & Chem 7: 04/16/21 04:26 04/16/21 04:26 Labs: Laboratory Results - last 24 hr 04/15/21 04/15/21 04/16/21 05:25 05:25 03:42 MCV MCH MCHC RDW Plt Count MPV Immature Gran % (Auto) Neut % (Auto) Lymph % (Auto) [place] % (Auto) Eos % (Auto) Baso % (Auto) Lymph # (Auto) [place] # (Auto) Eos # (Auto) Baso # (Auto) Abs Immat Gran (auto) Absolute Neuts (auto) Absolute Nucleated RBC Nucleated RBC % (auto) Smear Tech's Comments ESR D-Dimer O2 Saturation 92.0 ABG pH at Pt Temp 7.63 H* ABG pH (Temp Correct) 7.64 H* ABG pCO2 at Pt Temp 17 L* ABG pCO2 (Temp Corrct 17 L* ABG pO2 at Pt Temp 63 L ABG pO2 (Temp Correct 61 L ABG HCO3 18 L ABG Base Excess (Actual) 1.0 Anion Gap Estim Creat Clear Calc Estimated GFR Random Glucose Calcium Ferritin Total Bilirubin 0.5 Direct Bilirubin 0.2 AST 265 H ALT 164 H Alkaline Phosphatase 42 Lactate Dehydrogenase 1282 H C-Reactive Protein 5.07 H Total Protein 6.5 Albumin 3.5 Procalcitonin 0.55 04/16/21 04/16/21 04/16/21 04:26 04:26 04:26 MCV MCH MCHC RDW Plt Count MPV Immature Gran % (Auto) Neut % (Auto) Lymph % (Auto) [place] % (Auto) Eos % (Auto) Baso % (Auto) Lymph # (Auto) [place] # (Auto) Eos # (Auto) Baso # (Auto) Abs Immat Gran (auto) Absolute Neuts (auto) Absolute Nucleated RBC Nucleated RBC % (auto) Smear Tech's Comments ESR 10 D-Dimer 3182 O2 Saturation ABG pH at Pt Temp ABG pH (Temp Correct) ABG pCO2 at Pt Temp ABG pCO2 (Temp Corrct ABG pO2 at Pt Temp ABG pO2 (Temp Correct ABG HCO3 ABG Base Excess (Actual) Anion Gap 17 Estim Creat Clear Calc 188.1 Estimated GFR > 60 Random Glucose 106 Calcium 8.2 L Ferritin 3704 H Total Bilirubin Direct Bilirubin AST ALT Alkaline Phosphatase Lactate Dehydrogenase 1070 H C-Reactive Protein 2.75 H Total Protein Albumin Procalcitonin 04/16/21 04:26 MCV 82.8 MCH 29.9 MCHC 36.1 H RDW 12.8 Plt Count TNP MPV Not Reportable Immature Gran % (Auto) 0.8 H Neut % (Auto) 80.2 H Lymph % (Auto) 13.4 L [place] % (Auto) 5.5 Eos % (Auto) 0.0 Baso % (Auto) 0.1 Lymph # (Auto) 1.1 L [place] # (Auto) 0.5 Eos # (Auto) 0.0 Baso # (Auto) 0.0 Abs Immat Gran (auto) 0.07 H Absolute Neuts (auto) 6.8 Absolute Nucleated RBC 0.000 Nucleated RBC % (auto) 0.0 Smear Tech's Comments VERIFIED ESR D-Dimer O2 Saturation ABG pH at Pt Temp ABG pH (Temp Correct) ABG pCO2 at Pt Temp ABG pCO2 (Temp Corrct ABG pO2 at Pt Temp ABG pO2 (Temp Correct ABG HCO3 ABG Base Excess (Actual) Anion Gap Estim Creat Clear Calc Estimated GFR Random Glucose Calcium Ferritin Total Bilirubin Direct Bilirubin AST ALT Alkaline Phosphatase Lactate Dehydrogenase C-Reactive Protein Total Protein Albumin Procalcitonin Microbiology Microbiology Results: Microbiology 04/14/21 19:39 Blood Culture - Preliminary Blood - Subclavian No growth after 24 hours. 04/14/21 19:39 Blood Culture - Preliminary Blood - Subclavian No growth after 24 hours. Assessment and Plan (1) COVID-19: Status: Acute Assessment and Plan: This is a 20 yo M, who is unvaccinated for COVID-19, who initially went to urgent care for GI symptoms and was referred to the ED. He has been diagnosed with COVID-19 with typical findings on the CT scan. He is admitted for further treatment. 1. Acute Respiratory Failure with Hypoxia due to COVID 19 O2 requirements worsened over night -- now on 15L Graham cannula on decadron - continue approved for tocilizumab trend labs d/w ID -- no need for vancomcyin/zosyn, will use doxycycline ABG reviewed -- to give morphine with tachypnea 2. Viral Sepsis sepsis improving met sepsis criteria with tachypnea (in the 30s), tachycardia (120s), Fevers (TMax 103+), Leukopenia (4) No evidence of bacterial infection at this time - (empiric doxy) Full Code DVT pptx, Lovenox Pt endorses his mother has HCP - called to give updates, busy x 2; Quality Stroke Does the patient have a stroke diagnosis?: No VTE Prior VTE?: No VTE Risk Level:: Medical - moderate - high VTE Device Contraindication: Treatment Not Indicated VTE Drug Contraindication: N/A - Med Ordered
[2021-04-16] MEDS: Morphine Sulfate 2 MG/ML CARTRIDGE IVPUSH (11:55)
--- NOTE | 2021-04-16 15:35 | MHC.CM.PN ---
Male 20 DX Covid Patient is requiring High flow oxygen via NC. DP will be determined by pts recovery. CM will follow to address discharge needs.
[2021-04-16] MEDS: Doxycycline Hyclate 100 MG in 0.9 % Sodium Chloride 250 ML 166.67 MG IV (19:29)
[2021-04-16] MEDS: Enoxaparin Sodium 40 MG/0.4 ML SYRINGE SUBCUT (21:57)
[2021-04-16] MEDS: Melatonin 3 MG TABLET 6 MG PO (21:57)
--- NOTE | 2021-04-16 22:12 | PM.IDPN ---
Subjective Subjective Date of Service: 04/16/21 Critical Care Time (minutes): 15 Comment: He has increased oxygen requirements and is on 15 l/minute He is sleeping on back when seen Objective Data Labs CBC & Chem 7: 05/01/21 05:26 05/01/21 05:26 Labs: Laboratory Results - last 24 hr 04/16/21 04/16/21 04/16/21 03:42 04:26 04:26 WBC RBC Hgb Hct MCV MCH MCHC RDW Plt Count MPV Immature Gran % (Auto) Neut % (Auto) Lymph % (Auto) [place] % (Auto) Eos % (Auto) Baso % (Auto) Lymph # (Auto) [place] # (Auto) Eos # (Auto) Baso # (Auto) Abs Immat Gran (auto) Absolute Neuts (auto) Absolute Nucleated RBC Nucleated RBC % (auto) Smear Tech's Comments ESR 10 D-Dimer 3182 O2 Saturation 92.0 ABG pH at Pt Temp 7.63 H* ABG pH (Temp Correct) 7.64 H* ABG pCO2 at Pt Temp 17 L* ABG pCO2 (Temp Corrct 17 L* ABG pO2 at Pt Temp 63 L ABG pO2 (Temp Correct 61 L ABG HCO3 18 L ABG Base Excess (Actual) 1.0 Sodium Potassium Chloride Carbon Dioxide Anion Gap BUN Creatinine Estim Creat Clear Calc Estimated GFR Random Glucose Calcium Ferritin Lactate Dehydrogenase C-Reactive Protein 04/16/21 04/16/21 04:26 04:26 WBC 8.4 RBC 5.42 Hgb 16.2 Hct 44.9 MCV 82.8 MCH 29.9 MCHC 36.1 H RDW 12.8 Plt Count TNP MPV Not Reportable Immature Gran % (Auto) 0.8 H Neut % (Auto) 80.2 H Lymph % (Auto) 13.4 L [place] % (Auto) 5.5 Eos % (Auto) 0.0 Baso % (Auto) 0.1 Lymph # (Auto) 1.1 L [place] # (Auto) 0.5 Eos # (Auto) 0.0 Baso # (Auto) 0.0 Abs Immat Gran (auto) 0.07 H Absolute Neuts (auto) 6.8 Absolute Nucleated RBC 0.000 Nucleated RBC % (auto) 0.0 Smear Tech's Comments VERIFIED ESR D-Dimer O2 Saturation ABG pH at Pt Temp ABG pH (Temp Correct) ABG pCO2 at Pt Temp ABG pCO2 (Temp Corrct ABG pO2 at Pt Temp ABG pO2 (Temp Correct ABG HCO3 ABG Base Excess (Actual) Sodium 136 Potassium 3.7 Chloride 100 Carbon Dioxide 23 Anion Gap 17 BUN 15 Creatinine 0.86 Estim Creat Clear Calc 188.1 Estimated GFR > 60 Random Glucose 106 Calcium 8.2 L Ferritin 3704 H Lactate Dehydrogenase 1070 H C-Reactive Protein 2.75 H Microbiology Microbiology Results: Microbiology 04/14/21 19:39 Blood - Subclavian Blood Culture - Preliminary No growth after 48 hours. 04/14/21 19:39 Blood - Subclavian Blood Culture - Preliminary No growth after 48 hours. Physical Exam Vital Signs: Vital Signs: Last Vital Signs Temp 99.5 F 04/16/21 19:42 Pulse 80 04/16/21 19:42 Resp 16 04/16/21 19:42 BP 114/72 04/16/21 19:42 Pulse Ox 89 L 04/16/21 19:42 Oxygen Flow Rate 3 04/14/21 18:07 Body Mass Index 38.4 Const: General: cooperative Resp: Effort & Inspection: decreased respiratory effort Cardio: Rate: tachycardic Rhythm: regular rhythm GI: Palpation (GI): Soft to palpation and nontender Extrem: General: Yes normal to inspection Assessment and Plan Assessment and plan (1) COVID-19: Status: Resolved Assessment and Plan: He has worsening oxygen requirement He has received Tocilizumab Suggest Continue oxygen Continue steroids (2) Pneumonia due to 2019-nCoV: Problem details: EXTENSIVE BILATERAL, ALVEOLAR DENSITIES CONSISTENT WITH COVID 19 Status: Resolved Time Spent With Patient Time: Total time spent is greater than 50% in coordination of care (as documented) at patient's floor/unit and/or counseling patient: Time with patient: 15 - 24 minutes
[2021-04-17] VITALS (9 sets, daily range): BP systolic 118–142; BP diastolic 68–78; PULSE 63–98; RESP 18–24; TEMP 36.8–37.1; O2SAT 89–96
[2021-04-17] MEDS: Morphine Sulfate 2 MG/ML CARTRIDGE IVPUSH (05:41)
[2021-04-17 06:05] LABS: MANUAL DIFF FLAG NO
[2021-04-17 06:12] LABS: Basophils Percent Auto 0.2 % (0-2); Hematocrit 46.1 % (42-52); Hemoglobin 15.9 g/dl (14.0-18.0); Imm Gran Abs Auto 0.04 X10*3/uL (0.00-0.03); Imm Gran Pct Auto 0.6 % (0.0-0.4); Lymphocytes Absolute Auto 0.8 X10*3/uL (1.2-4.9); Lymphocytes Percent Auto 13.4 % (20-40); Mean Corpuscular HGB Conc 34.5 g/dl (31.0-36.0); Mean Corpuscular Hemoglobin 29.8 pg (27.0-33.0); Mean Corpuscular Volume 86.5 fL (80-98); Mean Platelet Volume 10.3 fL (9.4-12.4); Monocytes Absolute Auto 0.4 X10*3/uL (0.1-1.2); Monocytes Percent Auto 5.9 % (2-11); Neutrophils Percent Auto 79.9 % (45-73); Platelet Count 196 X10*3/uL (160-400); Red Blood Count 5.33 X10*6/uL (4.60-5.80); Red Cell Distribution Width 13.1 % (11.0-16.0); White Blood Count 6.3 X10*3/uL (4.8-10.8)
[2021-04-17 06:28] LABS: D Dimer 2913 NG/ML
[2021-04-17 06:32] LABS: Anion Gap 13 (12-20); Blood Urea Nitrogen 16 mg/dL (9-16); C Reactive Protein 5.14 mg/dL (< or = 0.50); Calcium 8.6 mg/dL (8.4-10.2); Carbon Dioxide 31 mmol/L (22-29); Chloride 100 mmol/L (96-108); Creatinine Clr Calc Pharmacy 207.4; Estimated Glomerular Filt Rate > 60; Glucose Random 92 mg/dL (60-115); Potassium 4.2 mmol/L (3.3-5.1); Sodium 140 mmol/L (135-145)
[2021-04-17 08:09] LABS: HIV AB/AG Nonreactive (Nonreactive); HIV Num 1 0.05 S/CO (0.00-0.99)
[2021-04-17 09:05] LABS: Procalcitonin 0.24 ng/mL
[2021-04-17] MEDS: dexAMETHasone sod phosphate 4 MG/ML VIAL 6 MG IVPUSH (09:15)
[2021-04-17] MEDS: 0.9 % Sodium Chloride Flush 3 ML SYRINGE IVFLUSH ×2 (09:16→21:16)
[2021-04-17] MEDS: Doxycycline Hyclate 100 MG in 0.9 % Sodium Chloride 250 ML 166.67 MG IV ×2 (09:20→21:15)
--- NOTE | 2021-04-17 10:14 | HO.PM.IMPN ---
Subjective Subjective Date of Service: 04/17/21 Interval History: seen and examined this AM mother on FT, updates given pt reports feeling better but O2 requirements Review of Systems denies fever +sob, +cough no cp Physical Exam Vital Signs: Vital Signs: Last Vital Signs Temp 98.7 F 04/17/21 07:55 Pulse 90 04/17/21 07:55 Resp 19 04/17/21 07:55 BP 142/78 H 04/17/21 07:55 Pulse Ox 96 04/17/21 10:11 Oxygen Flow Rate 3 04/14/21 18:07 Body Mass Index 38.4 Const: Other: General - no major distress Cardiovascular - regular rate and rhythm, S1-S2 Lungs - mild tachypnea Abdomen - soft, nontender, no rebound or guarding Extremities - no edema bilaterally Neuro - awake and alert, no focal deficits Objective Data Current Medications Generic Name Dose Route Start Last Admin Trade Name Freq PRN Reason Stop Dose Admin Acetaminophen 650 mg 04/14/21 22:14 04/16/21 21:58 Acetaminophen 325 Mg Tablet PO 650 mg Q6H PRN Administration Pain, Mild (Pain Scale 1-3) Albuterol Sulfate 2 puff 04/14/21 22:14 04/16/21 01:49 Albuterol Sulfate 90 Mcg 8 Gm Inhaler INHALE 2 puff RQ4H PRN Administration Shortness of Breath/Wheezing Benzonatate 100 mg 04/15/21 23:07 04/15/21 23:38 Benzonatate 100 Mg Capsule PO 100 mg TID PRN Administration Cough Dexamethasone Sodium Phosphate 6 mg 04/15/21 09:00 04/17/21 09:15 Dexamethasone Sod Phosphate 4 Mg/Ml Vial IVPUSH 04/24/21 09:01 6 mg DAILY JUSTIN Administration Enoxaparin Sodium 40 mg 04/14/21 22:15 04/16/21 21:57 Enoxaparin Sodium 40 Mg/0.4 Ml Syringe SUBCUT 40 mg Q24H JUSTIN Administration Tocilizumab 800 mg/ Sodium 100 mls @ 100 mls/hr 04/16/21 09:00 04/16/21 10:42 Chloride IV Infused ONCE JUSTIN Infusion Doxycycline Hyclate 100 mg/ 250 mls @ 166.67 mls/hr 04/16/21 20:00 04/17/21 09:20 Sodium Chloride IV 166.67 mls/hr Q12H JUSTIN Administration Melatonin 6 mg 04/14/21 22:14 04/16/21 21:57 Melatonin 3 Mg Tablet PO 6 mg BEDTIME PRN Administration Insomnia Morphine Sulfate 2 mg 04/16/21 08:34 04/17/21 05:41 Morphine Sulfate 2 Mg/Ml Cartridge IVPUSH 2 mg Q4H PRN Administration SOB/Restlessness Ondansetron HCl 4 mg 04/16/21 02:28 04/16/21 02:51 Ondansetron Hcl 4 Mg/2 Ml Vial IVPUSH 4 mg Q8H PRN Administration Nausea and Vomiting Pharmacy Consult 1 each 04/16/21 04:09 Consult Rx Vancomycin Dosing MISCELLANE DAILY PRN Consult order Senna 17.2 mg 04/14/21 22:14 Sennosides 8.6 Mg Tablet PO BEDTIME PRN Constipation Sodium Chloride 3 ml 04/15/21 00:00 04/17/21 09:16 0.9 % Sodium Chloride Flush 3 Ml Syringe IVFLUSH 3 ml QSHIFT [facility] Administration Labs CBC & Chem 7: 04/17/21 05:19 04/17/21 05:19 Labs: Laboratory Results - last 24 hr 04/17/21 04/17/21 04/17/21 05:19 05:19 05:19 MCV 86.5 MCH 29.8 MCHC 34.5 RDW 13.1 Plt Count 196 D MPV 10.3 Immature Gran % (Auto) 0.6 H Neut % (Auto) 79.9 H Lymph % (Auto) 13.4 L [place] % (Auto) 5.9 Eos % (Auto) 0.0 Baso % (Auto) 0.2 Lymph # (Auto) 0.8 L [place] # (Auto) 0.4 Eos # (Auto) 0.0 Baso # (Auto) 0.0 Abs Immat Gran (auto) 0.04 H Absolute Neuts (auto) 5.0 Absolute Nucleated RBC 0.000 Nucleated RBC % (auto) 0.0 D-Dimer Anion Gap 13 Estim Creat Clear Calc 207.4 Estimated GFR > 60 Random Glucose 92 Calcium 8.6 C-Reactive Protein 5.14 H Procalcitonin 0.24 HIV 1&2 Ab/P24 Ag 4thGn 04/17/21 04/17/21 05:19 05:19 MCV MCH MCHC RDW Plt Count MPV Immature Gran % (Auto) Neut % (Auto) Lymph % (Auto) [place] % (Auto) Eos % (Auto) Baso % (Auto) Lymph # (Auto) [place] # (Auto) Eos # (Auto) Baso # (Auto) Abs Immat Gran (auto) Absolute Neuts (auto) Absolute Nucleated RBC Nucleated RBC % (auto) D-Dimer 2913 Anion Gap Estim Creat Clear Calc Estimated GFR Random Glucose Calcium C-Reactive Protein Procalcitonin HIV 1&2 Ab/P24 Ag 4thGn Nonreactive Microbiology Microbiology Results: Microbiology 04/14/21 19:39 Blood Culture - Preliminary Blood - Subclavian No growth after 48 hours. 04/14/21 19:39 Blood Culture - Preliminary Blood - Subclavian No growth after 48 hours. Assessment and Plan (1) COVID-19: Status: Acute Assessment and Plan: This is a 20 yo M, who is unvaccinated for COVID-19, who initially went to urgent care for GI symptoms and was referred to the ED. He has been diagnosed with COVID-19 with typical findings on the CT scan. He is admitted for further treatment. 1. Acute Respiratory Failure with Hypoxia due to COVID 19 O2 requirements worsening -- will place on HFNC s/p tocilizumab trend labs - some improvement, CRP slight bump up continue doxy 2. Viral Sepsis met sepsis criteria with tachypnea (in the 30s), tachycardia (120s), Fevers (TMax 103+), Leukopenia (4) No evidence of bacterial infection at this time - (empiric doxy) Full Code DVT pptx, Lovenox Pt endorses his mother has HCP, updated her today Quality Stroke Does the patient have a stroke diagnosis?: No VTE Prior VTE?: No VTE Risk Level:: Medical - moderate - high VTE Device Contraindication: Treatment Not Indicated VTE Drug Contraindication: N/A - Med Ordered
[2021-04-17] MEDS: Enoxaparin Sodium 40 MG/0.4 ML SYRINGE SUBCUT (21:16)
[2021-04-18] VITALS: BP 125/74; PULSE 73; RESP 16; TEMP 36.4; O2SAT 97
[2021-04-18 04:00] VITALS: BP 126/67; PULSE 81; RESP 18; TEMP 36.5; O2SAT 93
[2021-04-18 06:52] LABS: Hematocrit 44.9 % (42-52); Hemoglobin 15.7 g/dl (14.0-18.0); Mean Corpuscular Hemoglobin 30.1 pg (27.0-33.0); Mean Corpuscular Volume 86.2 fL (80-98); Mean Platelet Volume 9.5 fL (9.4-12.4); Platelet Count 254 X10*3/uL (160-400); Red Blood Count 5.21 X10*6/uL (4.60-5.80); White Blood Count 4.7 X10*3/uL (4.8-10.8)
[2021-04-18 07:09] LABS: D Dimer 2578 NG/ML
[2021-04-18 07:21] LABS: Alanine Aminotransferase 111 U/L (0-40); Albumin Level 3.4 g/dL (3.5-5.0); Alkaline Phosphatase 41 U/L (39-117); Anion Gap 14 (12-20); Aspartate Amino Transferase 69 U/L (5-37); Bilirubin Direct 0.3 mg/dL (0.0-0.5); Bilirubin Total 0.6 mg/dL (0.0-1.0); Blood Urea Nitrogen 18 mg/dL (9-16); C Reactive Protein 1.27 mg/dL (< or = 0.50); Calcium 8.7 mg/dL (8.4-10.2); Carbon Dioxide 26 mmol/L (22-29); Chloride 104 mmol/L (96-108); Creatinine Clr Calc Pharmacy 210.1; Estimated Glomerular Filt Rate > 60; Glucose Random 88 mg/dL (60-115); Potassium 4.1 mmol/L (3.3-5.1); Sodium 140 mmol/L (135-145); Total Protein 5.9 g/dL (6.5-8.0)
[2021-04-18 08:00] VITALS: BP 133/64; PULSE 71; RESP 19; TEMP 37.1; O2SAT 93
[2021-04-18] MEDS: dexAMETHasone sod phosphate 4 MG/ML VIAL 6 MG IVPUSH (08:07)
[2021-04-18] MEDS: Doxycycline Hyclate 100 MG in 0.9 % Sodium Chloride 250 ML 166.67 MG IV (08:07)
[2021-04-18] MEDS: 0.9 % Sodium Chloride Flush 3 ML SYRINGE IVFLUSH ×3 (08:07→19:55)
[2021-04-18 08:20] LABS: Procalcitonin 0.25 ng/mL
[2021-04-18 11:22] VITALS: BP 122/58; PULSE 69; RESP 18; TEMP 36.4; O2SAT 95
--- NOTE | 2021-04-18 12:15 | HO.PM.IMPN ---
Subjective Subjective Date of Service: 04/18/21 Interval History: seen and examined this AM tells me he feels really good today laying prone throughout the day as much as possible Review of Systems denies fever +sob, +cough no cp Physical Exam Vital Signs: Vital Signs: Last Vital Signs Temp 97.6 F 04/18/21 11:22 Pulse 69 04/18/21 11:22 Resp 18 04/18/21 11:22 BP 122/58 L 04/18/21 11:22 Pulse Ox 95 04/18/21 11:22 Oxygen Flow Rate 3 04/14/21 18:07 Body Mass Index 38.4 Const: Other: General - no major distress Cardiovascular - regular rate and rhythm, S1-S2 Lungs - mild tachypnea Abdomen - soft, nontender, no rebound or guarding Extremities - no edema bilaterally Neuro - awake and alert, no focal deficits Objective Data Current Medications Generic Name Dose Route Start Last Admin Trade Name Freq PRN Reason Stop Dose Admin Acetaminophen 650 mg 04/14/21 22:14 04/16/21 21:58 Acetaminophen 325 Mg Tablet PO 650 mg Q6H PRN Administration Pain, Mild (Pain Scale 1-3) Albuterol Sulfate 2 puff 04/14/21 22:14 04/16/21 01:49 Albuterol Sulfate 90 Mcg 8 Gm Inhaler INHALE 2 puff RQ4H PRN Administration Shortness of Breath/Wheezing Benzonatate 100 mg 04/15/21 23:07 04/15/21 23:38 Benzonatate 100 Mg Capsule PO 100 mg TID PRN Administration Cough Dexamethasone Sodium Phosphate 6 mg 04/15/21 09:00 04/18/21 08:07 Dexamethasone Sod Phosphate 4 Mg/Ml Vial IVPUSH 04/24/21 09:01 6 mg DAILY JUSTIN Administration Enoxaparin Sodium 40 mg 04/14/21 22:15 04/17/21 21:16 Enoxaparin Sodium 40 Mg/0.4 Ml Syringe SUBCUT 40 mg Q24H JUSTIN Administration Doxycycline Hyclate 100 mg/ 250 mls @ 166.67 mls/hr 04/16/21 20:00 04/18/21 09:52 Sodium Chloride IV Infused Q12H JUSTIN Infusion Melatonin 6 mg 04/14/21 22:14 04/16/21 21:57 Melatonin 3 Mg Tablet PO 6 mg BEDTIME PRN Administration Insomnia Morphine Sulfate 2 mg 04/16/21 08:34 04/17/21 05:41 Morphine Sulfate 2 Mg/Ml Cartridge IVPUSH 2 mg Q4H PRN Administration SOB/Restlessness Ondansetron HCl 4 mg 04/16/21 02:28 04/16/21 02:51 Ondansetron Hcl 4 Mg/2 Ml Vial IVPUSH 4 mg Q8H PRN Administration Nausea and Vomiting Pharmacy Consult 1 each 04/16/21 04:09 Consult Rx Vancomycin Dosing MISCELLANE DAILY PRN Consult order Senna 17.2 mg 04/14/21 22:14 Sennosides 8.6 Mg Tablet PO BEDTIME PRN Constipation Sodium Chloride 3 ml 04/15/21 00:00 04/18/21 08:07 0.9 % Sodium Chloride Flush 3 Ml Syringe IVFLUSH 3 ml QSHIFT JUSTIN Administration Labs CBC & Chem 7: 04/18/21 06:45 04/18/21 06:45 Labs: Laboratory Results - last 24 hr 04/18/21 04/18/21 04/18/21 06:45 06:45 06:45 MCV 86.2 MCH 30.1 MCHC 35.0 RDW 13.0 Plt Count 254 D MPV 9.5 Absolute Nucleated RBC 0.000 Nucleated RBC % (auto) 0.0 D-Dimer 2578 Anion Gap 14 Estim Creat Clear Calc 210.1 Estimated GFR > 60 Random Glucose 88 Calcium 8.7 Total Bilirubin 0.6 Direct Bilirubin 0.3 AST 69 H ALT 111 H Alkaline Phosphatase 41 C-Reactive Protein 1.27 H Total Protein 5.9 L Albumin 3.4 L Procalcitonin 04/18/21 06:45 MCV MCH MCHC RDW Plt Count MPV Absolute Nucleated RBC Nucleated RBC % (auto) D-Dimer Anion Gap Estim Creat Clear Calc Estimated GFR Random Glucose Calcium Total Bilirubin Direct Bilirubin AST ALT Alkaline Phosphatase C-Reactive Protein Total Protein Albumin Procalcitonin 0.25 Assessment and Plan (1) COVID-19: Status: Acute Assessment and Plan: This is a 20 yo M, who is unvaccinated for COVID-19, who initially went to urgent care for GI symptoms and was referred to the ED. He has been diagnosed with COVID-19 with typical findings on the CT scan. He is admitted for further treatment. 1. Acute Respiratory Failure with Hypoxia due to COVID 19 O2 requirements improving, tolerating NRB with ats in the mid 90s s/p tocilizumab inflammatory biomakers improving continue doxy and decadron, prone positioning encouraged 2. Viral Sepsis met sepsis criteria with tachypnea (in the 30s), tachycardia (120s), Fevers (TMax 103+), Leukopenia (4) No evidence of bacterial infection at this time - (empiric doxy) Full Code DVT pptx, Lovenox Pt endorses his mother has HCP, updated her today Quality Stroke Does the patient have a stroke diagnosis?: No VTE Prior VTE?: No VTE Risk Level:: Medical - moderate - high VTE Device Contraindication: Treatment Not Indicated VTE Drug Contraindication: N/A - Med Ordered
--- NOTE | 2021-04-18 13:58 | PM.EVENT ---
Event Note Date of Service: 04/18/21 Event Note: COVID post tocilizumab would give po Doxycycline for 10 days continue supportive care
[2021-04-18 15:18] VITALS: BP 136/68; PULSE 65; RESP 20; TEMP 36.1; O2SAT 95
--- NOTE | 2021-04-18 15:18 | MHC.CM.PN ---
Male 20 DX COVID DP TBD by the Patients recovery. Home no services family transport. CM will follow.
[2021-04-18 19:14] VITALS: BP 115/54; PULSE 60; RESP 20; TEMP 36.2; O2SAT 96
[2021-04-18] MEDS: Enoxaparin Sodium 40 MG/0.4 ML SYRINGE SUBCUT (22:53)
[2021-04-19] VITALS (10 sets, daily range): BP systolic 117–141; BP diastolic 58–84; PULSE 56–100; RESP 18–24; TEMP 36–36.9; O2SAT 90–97
[2021-04-19] MEDS: Melatonin 3 MG TABLET 6 MG PO ×2 (00:42→22:49)
[2021-04-19] MEDS: Morphine Sulfate 2 MG/ML CARTRIDGE IVPUSH ×2 (00:43→22:50)
[2021-04-19] MEDS: dexAMETHasone sod phosphate 4 MG/ML VIAL 6 MG IVPUSH (09:18)
[2021-04-19] MEDS: 0.9 % Sodium Chloride Flush 3 ML SYRINGE IVFLUSH ×3 (09:18→20:19)
--- NOTE | 2021-04-19 14:42 | PM.EVENT ---
Event Note Date of Service: 04/19/21 Event Note: ?I saw and examined the patient and discuss findings, labs, meds, management and disposition with RN and I agree with management as outline in PN by RN, except if otherwise stated.
--- NOTE | 2021-04-19 14:50 | PM.IMPN ---
Progress Note: A&P (1) COVID-19: Status: Acute <Roseanna Adame NP - Last Filed: 04/19/21 15:41> Assessment and Plan: This is a 20 yo M, who is unvaccinated for COVID-19, who initially went to urgent care for GI symptoms and was referred to the ED. He has been diagnosed with COVID-19 with typical findings on the CT scan. He is admitted for further treatment. Acute Respiratory Failure with Hypoxia secondary to COVID 19 O2 requirements improving, tolerating NRB with sats in the mid 90s s/p tocilizumab inflammatory biomakers improving continue doxy and decadron, prone positioning encouraged Viral Sepsis. Resolved met sepsis criteria with tachypnea (in the 30s), tachycardia (120s), Fevers (TMax 103+), Leukopenia (4) No evidence of bacterial infection at this time - (empiric doxy) DVT pptx, Lovenox Pt endorses his mother has HCP, updated her today Attending Dr. Patel Full code <Roseanna Adame NP - Last Filed: 04/19/21 15:41> Subjective Subjective Date of Service: 04/19/21 <Roseanna Adame NP - Last Filed: 04/19/21 15:41> 04/20/21 <Neville Patel MD - Last Filed: 04/20/21 08:50> Interval History: Follow up covid NO sob dry cough <Roseanna Adame NP - Last Filed: 04/19/21 15:41> Physical Exam Vital Signs: Vital Signs: Last Vital Signs Temp 97.2 F 04/19/21 11:39 Pulse 75 04/19/21 11:39 Resp 18 04/19/21 11:39 BP 125/73 04/19/21 11:39 Pulse Ox 95 04/19/21 11:39 Oxygen Flow Rate 3 04/14/21 18:07 Body Mass Index 38.4 <Roseanna Adame NP - Last Filed: 04/19/21 15:41> Appearing in no acute distress lung sounds normal expansion heart regular rate rhythm positive bowel sounds, abdomen is soft, nontender neuro patient is alert x3, no focal deficits <Roseanna Adame NP - Last Filed: 04/19/21 15:41> Objective Data Current Medications Generic Name Dose Route Start Last Admin Trade Name Freq PRN Reason Stop Dose Admin Acetaminophen 650 mg 04/14/21 22:14 04/16/21 21:58 Acetaminophen 325 Mg Tablet PO 650 mg Q6H PRN Administration Pain, Mild (Pain Scale 1-3) Albuterol Sulfate 2 puff 04/14/21 22:14 04/16/21 01:49 Albuterol Sulfate 90 Mcg 8 Gm Inhaler INHALE 2 puff RQ4H PRN Administration Shortness of Breath/Wheezing Benzonatate 100 mg 04/15/21 23:07 04/15/21 23:38 Benzonatate 100 Mg Capsule PO 100 mg TID PRN Administration Cough Dexamethasone Sodium Phosphate 6 mg 04/15/21 09:00 04/19/21 09:18 Dexamethasone Sod Phosphate 4 Mg/Ml Vial IVPUSH 04/24/21 09:01 6 mg DAILY JUSTIN Administration Doxycycline Hyclate 100 mg 04/18/21 20:00 04/19/21 09:18 Doxycycline Hyclate 100 Mg Tablet PO 100 mg Q12H JUSTIN Administration Enoxaparin Sodium 40 mg 04/14/21 22:15 04/18/21 22:53 Enoxaparin Sodium 40 Mg/0.4 Ml Syringe SUBCUT 40 mg Q24H JUSTIN Administration Melatonin 6 mg 04/14/21 22:14 04/19/21 00:42 Melatonin 3 Mg Tablet PO 6 mg BEDTIME PRN Administration Insomnia Morphine Sulfate 2 mg 04/16/21 08:34 04/19/21 00:43 Morphine Sulfate 2 Mg/Ml Cartridge IVPUSH 2 mg Q4H PRN Administration SOB/Restlessness Ondansetron HCl 4 mg 04/16/21 02:28 04/16/21 02:51 Ondansetron Hcl 4 Mg/2 Ml Vial IVPUSH 4 mg Q8H PRN Administration Nausea and Vomiting Pharmacy Consult 1 each 04/16/21 04:09 Consult Rx Vancomycin Dosing MISCELLANE DAILY PRN Consult order Senna 17.2 mg 04/14/21 22:14 Sennosides 8.6 Mg Tablet PO BEDTIME PRN Constipation Sodium Chloride 3 ml 04/15/21 00:00 04/19/21 14:40 0.9 % Sodium Chloride Flush 3 Ml Syringe IVFLUSH 3 ml QSHIFT JUSTIN Administration <Roseanna Adame NP - Last Filed: 04/19/21 15:41> Labs CBC & Chem 7: : 04/18/21 06:45 04/18/21 06:45 <Roseanna Adame NP - Last Filed: 04/19/21 15:41> Microbiology Microbiology Results: Microbiology 04/14/21 19:39 Blood - Subclavian Blood Culture - Preliminary No growth after 48 hours. 04/14/21 19:39 Blood - Subclavian Blood Culture - Preliminary No growth after 48 hours. <Roseanna Adame NP - Last Filed: 04/19/21 15:41> Quality Stroke Does the patient have a stroke diagnosis?: No <Roseanna Adame NP - Last Filed: 04/19/21 15:41> VTE Prior VTE?: No <Roseanna Adame NP - Last Filed: 04/19/21 15:41> VTE Risk Level:: Medical - moderate - high <Roseanna Adame NP - Last Filed: 04/19/21 15:41> VTE Device Contraindication: Treatment Not Indicated <Roseanna Adame NP - Last Filed: 04/19/21 15:41> VTE Drug Contraindication: N/A - Med Ordered <Roseanna Adame NP - Last Filed: 04/19/21 15:41>
[2021-04-19] MEDS: Enoxaparin Sodium 40 MG/0.4 ML SYRINGE SUBCUT (22:49)
[2021-04-20 03:38] VITALS: BP 128/70; PULSE 86; RESP 19; TEMP 36.4; O2SAT 95
[2021-04-20 07:48] VITALS: BP 134/78; PULSE 74; RESP 19; TEMP 36.3; O2SAT 94
[2021-04-20] MEDS: dexAMETHasone sod phosphate 4 MG/ML VIAL 6 MG IVPUSH (08:57)
[2021-04-20] MEDS: 0.9 % Sodium Chloride Flush 3 ML SYRINGE IVFLUSH ×3 (08:57→21:15)
[2021-04-20 09:41] LABS: Hematocrit 45.9 % (42-52); Hemoglobin 16.2 g/dl (14.0-18.0); Mean Corpuscular HGB Conc 35.3 g/dl (31.0-36.0); Mean Corpuscular Hemoglobin 30.2 pg (27.0-33.0); Mean Corpuscular Volume 85.5 fL (80-98); Mean Platelet Volume 9.5 fL (9.4-12.4); Platelet Count 311 X10*3/uL (160-400); Red Blood Count 5.37 X10*6/uL (4.60-5.80); Red Cell Distribution Width 12.7 % (11.0-16.0); White Blood Count 6.3 X10*3/uL (4.8-10.8)
--- NOTE | 2021-04-20 09:45 | P.PNIM_ITS ---
Progress Note: A&P (1) COVID-19: Status: Acute <Roseanna Deep, AMANUEL - Last Filed: 04/20/21 10:02> Assessment and Plan: This is a 20 yo M, who is unvaccinated for COVID-19, who initially went to urgent care for GI symptoms and was referred to the ED. He has been diagnosed with COVID-19 with typical findings on the CT scan. He is admitted for further treatment. Acute Respiratory Failure with Hypoxia secondary to COVID 19 s/p tocilizumab inflammatory biomakers improving continue doxy and decadron, prone positioning encouraged was on high brenda last night but now back on NRB with sats 94%. keep sats above 88%. Viral Sepsis. Resolved met sepsis criteria with tachypnea (in the 30s), tachycardia (120s), Fevers (TMax 103+), Leukopenia (4) No evidence of bacterial infection at this time - (empiric doxy) Transaminitis. Trending down Likely viral from covid. DVT pptx, Lovenox Pt endorses his mother has HCP, updated her today Attending Dr. Patel Full code 04/20/21: This insurance underwriter sales spoke with patients mother, Brenda. She had concerns that her son felt like he was not being monitored or getting the proper care. He mentioned to her that he wanted to be transferred to [facility] [place] [place]. Brenda was made aware of the course of care that is ongoing at this time including IV steroids, Iv antibiotics, oxygen therapy via nasal canula, non rebreather, hi brenda ect. He also has a camera in the room and is constantly being monitored. The patient wanted to get up and shower yesterday however due to his poor oxygenation he was informed that he could sit in a chair or sit up in bed and use wash towels/cloths to clean up and he could also walk some in his room if he felt up to it. Conversation was had with the patient and this insurance underwriter sales this morning in person and via his cell phone an hour later and he is aware of his course of mike atment and when asked about being transferred to [facility] he stated I mind as well finish up treatment here . The patient and his mother, Brenda are both aware that the recovery from covid 19 infection can be long for some people and take more time and unfortunately while hospitalized it can be difficult to be in a quaratine space but they are aware that if at any point the patient required a higher level of care he would be transferred to the ICU. At this point in time he is stable enough for the IMC unit. The patients mom did bring him food from home yesterday and hopefully doing that will help his spirits. She was also told that she can bring in electronics for him to keep him entertained if that helps. <Roseanna Adame NP - Last Filed: 04/20/21 10:02> Subjective Subjective Date of Service: 04/20/21 <Roseanna Adame NP - Last Filed: 04/20/21 10:02> 04/20/21 <Neville Patel MD - Last Filed: 04/20/21 13:38> Interval History: Follow up covid 19 on NRB, breathing ok sats down with activity no pain feeling frustrated from being quarantined <Roseanna Adame NP - Last Filed: 04/20/21 10:02> Physical Exam Vital Signs: Vital Signs: Last Vital Signs Temp 97.4 F 04/20/21 07:48 Pulse 74 04/20/21 07:48 Resp 19 04/20/21 07:48 BP 134/78 04/20/21 07:48 Pulse Ox 94 04/20/21 07:48 Oxygen Flow Rate 3 04/14/21 18:07 Body Mass Index 38.4 <Roseanna Adame NP - Last Filed: 04/20/21 10:02> Appearing in no acute distress lungs normal expansion heart regular rate rhythm, clear S1, S2 positive bowel sounds, abdomen is soft, nontender neuro patient is alert x3, no focal deficits <Roseanna Adame NP - Last Filed: 04/20/21 10:02> Objective Data Current Medications Generic Name Dose Route Start Last Admin Trade Name Freq PRN Reason Stop Dose Admin Acetaminophen 650 mg 04/14/21 22:14 04/16/21 21:58 Acetaminophen 325 Mg Tablet PO 650 mg Q6H PRN Administration Pain, Mild (Pain Scale 1-3) Albuterol Sulfate 2 puff 04/14/21 22:14 04/16/21 01:49 Albuterol Sulfate 90 Mcg 8 Gm Inhaler INHALE 2 puff RQ4H PRN Administration Shortness of Breath/Wheezing Benzonatate 100 mg 04/15/21 23:07 04/15/21 23:38 Benzonatate 100 Mg Capsule PO 100 mg TID PRN Administration Cough Dexamethasone Sodium Phosphate 6 mg 04/15/21 09:00 04/20/21 08:57 Dexamethasone Sod Phosphate 4 Mg/Ml Vial IVPUSH 04/24/21 09:01 6 mg DAILY JUSTIN Administration Doxycycline Hyclate 100 mg 04/18/21 20:00 04/20/21 08:57 Doxycycline Hyclate 100 Mg Tablet PO 100 mg Q12H JUSTIN Administration Enoxaparin Sodium 40 mg 04/14/21 22:15 04/19/21 22:49 Enoxaparin Sodium 40 Mg/0.4 Ml Syringe SUBCUT 40 mg Q24H JUSTIN Administration Melatonin 6 mg 04/14/21 22:14 04/19/21 22:49 Melatonin 3 Mg Tablet PO 6 mg BEDTIME PRN Administration Insomnia Morphine Sulfate 2 mg 04/16/21 08:34 04/19/21 22:50 Morphine Sulfate 2 Mg/Ml Cartridge IVPUSH 2 mg Q4H PRN Administration SOB/Restlessness Ondansetron HCl 4 mg 04/16/21 02:28 04/16/21 02:51 Ondansetron Hcl 4 Mg/2 Ml Vial IVPUSH 4 mg Q8H PRN Administration Nausea and Vomiting Pharmacy Consult 1 each 04/16/21 04:09 Consult Rx Vancomycin Dosing MISCELLANE DAILY PRN Consult order Senna 17.2 mg 04/14/21 22:14 Sennosides 8.6 Mg Tablet PO BEDTIME PRN Constipation Sodium Chloride 3 ml 04/15/21 00:00 04/20/21 08:57 0.9 % Sodium Chloride Flush 3 Ml Syringe IVFLUSH 3 ml QSHIFT JUSTIN Administration Trazodone HCl 25 mg 04/19/21 15:39 Trazodone Hcl 25 Mg Halftab PO BEDTIME PRN Insomnia <Roseanna Adame NP - Last Filed: 04/20/21 10:02> Labs CBC & Chem 7: : 04/20/21 09:21 04/20/21 09:21 <Roseanna Adame NP - Last Filed: 04/20/21 10:02> Labs: Laboratory Results - last 24 hr 04/20/21 09:21 MCV 85.5 MCH 30.2 MCHC 35.3 RDW 12.7 Plt Count 311 MPV 9.5 Absolute Nucleated RBC 0.000 Nucleated RBC % (auto) 0.0 <Roseanna Adame NP - Last Filed: 04/20/21 10:02> Microbiology Microbiology Results: Microbiology 04/14/21 19:39 Blood - Subclavian Blood Culture - Final No growth after 5 days. 04/14/21 19:39 Blood - Subclavian Blood Culture - Final No growth after 5 days. <Roseanna Adame NP - Last Filed: 04/20/21 10:02> Quality Stroke Does the patient have a stroke diagnosis?: No <Roseanna Adame NP - Last Filed: 04/20/21 10:02> VTE Prior VTE?: No <Roseanna Adame NP - Last Filed: 04/20/21 10:02> VTE Risk Level:: Medical - moderate - high <Roseanna Adame NP - Last Filed: 04/20/21 10:02> VTE Device Contraindication: Treatment Not Indicated <Roseanna Adame NP - Last Filed: 04/20/21 10:02> VTE Drug Contraindication: N/A - Med Ordered <Roseanna Adame NP - Last Filed: 04/20/21 10:02>
[2021-04-20 10:16] LABS: Alanine Aminotransferase 170 U/L (0-40); Albumin Level 3.5 g/dL (3.5-5.0); Alkaline Phosphatase 43 U/L (39-117); Anion Gap 12 (12-20); Aspartate Amino Transferase 82 U/L (5-37); Bilirubin Direct 0.3 mg/dL (0.0-0.5); Bilirubin Total 0.8 mg/dL (0.0-1.0); Blood Urea Nitrogen 18 mg/dL (9-16); Calcium 8.8 mg/dL (8.4-10.2); Carbon Dioxide 28 mmol/L (22-29); Chloride 104 mmol/L (96-108); Creatinine Clr Calc Pharmacy 192.6; Estimated Glomerular Filt Rate > 60; Glucose Random 89 mg/dL (60-115); Lactate Dehydrogenase 693 U/L (118-273); Potassium 4.2 mmol/L (3.3-5.1); Sodium 140 mmol/L (135-145); Total Protein 5.8 g/dL (6.5-8.0)
[2021-04-20 10:21] LABS: Procalcitonin 0.04 ng/mL
[2021-04-20 10:24] LABS: Ferritin 1490 ng/mL (20-250)
[2021-04-20 12:00] VITALS: BP 135/84; PULSE 82; RESP 18; TEMP 36.6; O2SAT 92
[2021-04-20 16:00] VITALS: BP 124/64; PULSE 82; RESP 20; TEMP 36.2; O2SAT 94
--- NOTE | 2021-04-20 18:05 | PC.NURSE ---
Patient on IMC being monitored for COVID complications. Patient stating easier breathing at times of rest today. O2 requirements today range from 100% NRB at rest with SpO2 91-99% to NRB + Graham at 15L during activity d/t SpO2 dropping into the 60s during episode of ambulation to BR on just NRB. Patient became symptomatic at this time and stated I'm not getting any air! despite the obvious flow of O2 from portable O2 tank. Patient encouraged to move slowly during activity and not donis through, consuming his O2 reserve. O2 consumption explained to patient with COVID complication present. NSR to sinus tach on monitor, higher rates noted during activity. Fair to poor appetite throughout the day, refusing breakfast and lunch but accepting dinner. Patient states he is bored Personal electronics at bedside for use. Mother updated during her telephone call into Nursing today wanting her son transferred to [facility]. [employer]AD[employer] ENGINE[employer] at bedside explaining no need for higher level of care at this time. Patient verbalized understanding.
[2021-04-20 19:44] VITALS: O2SAT 95
[2021-04-20 20:00] VITALS: BP 138/68; PULSE 80; RESP 24; TEMP 36; O2SAT 94
[2021-04-20] MEDS: Enoxaparin Sodium 40 MG/0.4 ML SYRINGE SUBCUT (21:15)
[2021-04-21] VITALS (9 sets, daily range): BP systolic 113–130; BP diastolic 63–75; PULSE 66–103; RESP 18–22; TEMP 36.2–36.6; O2SAT 89–95
[2021-04-21] MEDS: Melatonin 3 MG TABLET 6 MG PO ×2 (00:07→21:31)
[2021-04-21] MEDS: Morphine Sulfate 2 MG/ML CARTRIDGE IVPUSH (00:07)
[2021-04-21] MEDS: Benzonatate 100 MG CAPSULE PO ×2 (08:35→21:19)
[2021-04-21] MEDS: 0.9 % Sodium Chloride Flush 3 ML SYRINGE IVFLUSH ×3 (08:35→21:20)
[2021-04-21] MEDS: dexAMETHasone sod phosphate 4 MG/ML VIAL 6 MG IVPUSH (08:35)
--- NOTE | 2021-04-21 09:07 | MHC.CM.PN ---
dc plan at this time remains the same, for patient to return home no svcs. when medically stable. cm to cont. to follow.
--- NOTE | 2021-04-21 12:59 | PM.IMPN ---
Progress Note: A&P (1) COVID-19: Status: Acute Assessment and Plan: This is a 20 yo M, who is unvaccinated for COVID-19, who initially went to urgent care for GI symptoms and was referred to the ED. He has been diagnosed with COVID-19 with typical findings on the CT scan. He is admitted for further treatment. Acute Respiratory Failure with Hypoxia secondary to COVID 19 Maintaining oxygen saturation between 89-95% on non-rebreather s/p tocilizumab inflammatory biomakers improving, trending down continue doxy and decadron, prone positioning encouraged was on high brenda at one point but now continues on NRB. Keep sats above 88%. Viral Sepsis. Resolved met sepsis criteria with tachypnea (in the 30s), tachycardia (120s), Fevers (TMax 103+), Leukopenia (4) No evidence of bacterial infection at this time - (empiric doxy) Transaminitis. Trending down Likely viral from covid. DVT pptx, Lovenox Pt endorses his mother has HCP, updated her today Attending Dr. Saucedo Full code 04/20/21: This investigative writer spoke with patients mother, Brenda. She had concerns that her son felt like he was not being monitored or getting the proper care. He mentioned to her that [place] [facility] Brenda was made aware of the course of care that is ongoing at this time including IV steroids, Iv antibiotics, oxygen therapy via nasal canula, non rebreather, hi brenda ect. He also has a camera in the room and is constantly being monitored. The patient wanted to get up and shower yesterday however due to his poor oxygenation he was informed that he could sit in a chair or sit up in bed and use wash towels/cloths to clean up and he could also walk some in his room if he felt up to it. Conversation was had with the patient and this investigative writer this morning in person and via his cell phone an hour later and he is aware of his course of treatment and when asked about being transferred [place] [facility] [place] stated I mind as well finish up treatment here . The patient and his mother, Brenda are both aware that the recovery from covid 19 infection can be long for some people and take more time and unfortunately while hospitalized it can be difficult to be in a quaratine space but they are aware that if at any point the patient required a higher level of care he would be transferred to the ICU. At this point in time he is stable enough for the IMC unit. The patients mom did bring him food from home yesterday and hopefully doing that will help his spirits. She was also told that she can bring in electronics for him to keep him entertained if that helps.?? Subjective Subjective Date of Service: 04/21/21 Interval History: Follow up covid 19 Has been stable with sats 89-95% NRB No pain or sob sitting up in bed Physical Exam Vital Signs: Vital Signs: Last Vital Signs Temp 97.4 F 04/21/21 10:45 Pulse 79 04/21/21 10:45 Resp 22 H 04/21/21 10:45 BP 120/75 04/21/21 10:45 Pulse Ox 93 04/21/21 10:45 Oxygen Flow Rate 3 04/14/21 18:07 Body Mass Index 38.4 Appearing in no acute distress lung normal expansion heart regular rate rhythm, clear S1, S2 positive bowel sounds, abdomen is soft, nontender neuro patient is alert x3, no focal deficits Objective Data Current Medications Generic Name Dose Route Start Last Admin Trade Name Freq PRN Reason Stop Dose Admin Acetaminophen 650 mg 04/14/21 22:14 04/16/21 21:58 Acetaminophen 325 Mg Tablet PO 650 mg Q6H PRN Administration Pain, Mild (Pain Scale 1-3) Albuterol Sulfate 2 puff 04/14/21 22:14 04/16/21 01:49 Albuterol Sulfate 90 Mcg 8 Gm Inhaler INHALE 2 puff RQ4H PRN Administration Shortness of Breath/Wheezing Benzonatate 100 mg 04/15/21 23:07 04/21/21 08:35 Benzonatate 100 Mg Capsule PO 100 mg TID PRN Administration Cough Dexamethasone Sodium Phosphate 6 mg 04/15/21 09:00 04/21/21 08:35 Dexamethasone Sod Phosphate 4 Mg/Ml Vial IVPUSH 04/24/21 09:01 6 mg DAILY JUSTIN Administration Doxycycline Hyclate 100 mg 04/18/21 20:00 04/21/21 08:35 Doxycycline Hyclate 100 Mg Tablet PO 100 mg Q12H JUSTIN Administration Enoxaparin Sodium 40 mg 04/14/21 22:15 04/20/21 21:15 Enoxaparin Sodium 40 Mg/0.4 Ml Syringe SUBCUT 40 mg Q24H JUSTIN Administration Melatonin 6 mg 04/14/21 22:14 04/21/21 00:07 Melatonin 3 Mg Tablet PO 6 mg BEDTIME PRN Administration Insomnia Ondansetron HCl 4 mg 04/16/21 02:28 04/16/21 02:51 Ondansetron Hcl 4 Mg/2 Ml Vial IVPUSH 4 mg Q8H PRN Administration Nausea and Vomiting Pharmacy Consult 1 each 04/16/21 04:09 Consult Rx Vancomycin Dosing MISCELLANE DAILY PRN Consult order Senna 17.2 mg 04/14/21 22:14 Sennosides 8.6 Mg Tablet PO BEDTIME PRN Constipation Sodium Chloride 3 ml 04/15/21 00:00 04/21/21 08:35 0.9 % Sodium Chloride Flush 3 Ml Syringe IVFLUSH 3 ml QSHIFT JUSTIN Administration Trazodone HCl 25 mg 04/19/21 15:39 Trazodone Hcl 25 Mg Halftab PO BEDTIME PRN Insomnia Labs CBC & Chem 7: 04/20/21 09:21 04/20/21 09:21 Microbiology Microbiology Results: Microbiology 04/14/21 19:39 Blood - Subclavian Blood Culture - Final No growth after 5 days. 04/14/21 19:39 Blood - Subclavian Blood Culture - Final No growth after 5 days. Quality Stroke Does the patient have a stroke diagnosis?: No VTE Prior VTE?: No VTE Risk Level:: Medical - moderate - high VTE Device Contraindication: Treatment Not Indicated VTE Drug Contraindication: N/A - Med Ordered
[2021-04-21] MEDS: Enoxaparin Sodium 40 MG/0.4 ML SYRINGE SUBCUT (21:19)
[2021-04-21] MEDS: traZODone HCL 25 MG HALFTAB PO (21:31)
[2021-04-22] VITALS (8 sets, daily range): BP systolic 117–150; BP diastolic 55–79; PULSE 66–110; RESP 18–22; TEMP 36.1–36.9; O2SAT 84–98
--- NOTE | 2021-04-22 01:46 | PC.NURSE ---
pt stated he needed to use have BM around 1:40am. I had told him he needed to use the commode because of risk of desatting very quickly while on portable tank. Pt adamant he did not want to use commode or bed chua. Pt put on portable o2 tank at 25L with NRB. Ambulating to bathroom and back caused him to desat to 78%. He remained asymptomatic the entire time, no complaints of dizziness or feeling weak. Pt instructed to go back to bed and prone while returned to max NRB. He recovered quickly, back to 92%. He is currently resting sitting up, current o2 sat is 94%. notified of situation.
[2021-04-22 08:01] LABS: Hematocrit 46.3 % (42-52); Hemoglobin 16.6 g/dl (14.0-18.0); Mean Corpuscular HGB Conc 35.9 g/dl (31.0-36.0); Mean Corpuscular Hemoglobin 30.1 pg (27.0-33.0); Mean Corpuscular Volume 83.9 fL (80-98); Mean Platelet Volume 9.3 fL (9.4-12.4); Platelet Count 386 X10*3/uL (160-400); Red Blood Count 5.52 X10*6/uL (4.60-5.80); Red Cell Distribution Width 12.8 % (11.0-16.0); White Blood Count 8.1 X10*3/uL (4.8-10.8)
[2021-04-22 08:22] LABS: Anion Gap 13 (12-20); Blood Urea Nitrogen 16 mg/dL (9-16); Calcium 9.1 mg/dL (8.4-10.2); Carbon Dioxide 25 mmol/L (22-29); Chloride 104 mmol/L (96-108); Creatinine Clr Calc Pharmacy 199.8; Estimated Glomerular Filt Rate > 60; Glucose Random 95 mg/dL (60-115); Potassium 4.3 mmol/L (3.3-5.1); Sodium 138 mmol/L (135-145)
[2021-04-22] MEDS: dexAMETHasone sod phosphate 4 MG/ML VIAL 6 MG IVPUSH (09:12)
[2021-04-22] MEDS: 0.9 % Sodium Chloride Flush 3 ML SYRINGE IVFLUSH ×2 (09:12→19:15)
[2021-04-22 09:24] LABS: Alanine Aminotransferase 118 U/L (0-40); Albumin Level 3.5 g/dL (3.5-5.0); Alkaline Phosphatase 48 U/L (39-117); Aspartate Amino Transferase 40 U/L (5-37); Bilirubin Direct 0.3 mg/dL (0.0-0.5); Bilirubin Total 0.7 mg/dL (0.0-1.0); Lactate Dehydrogenase 610 U/L (118-273); Total Protein 5.8 g/dL (6.5-8.0)
[2021-04-22 09:36] LABS: Ferritin 987 ng/mL (20-250)
--- NOTE | 2021-04-22 12:57 | P.PNIM_ITS ---
Progress Note: A&P (1) COVID-19: Status: Acute <Roseanna AMANUEL Adame - Last Filed: 04/22/21 13:26> Assessment and Plan: This is a 20 yo M, who is unvaccinated for COVID-19, who initially went to urgent care for GI symptoms and was referred to the ED. He has been diagnosed with COVID-19 with typical findings on the CT scan. He is admitted for further treatment. Acute Respiratory Failure with Hypoxia secondary to COVID 19 Maintaining oxygen saturation between 89-95% on non-rebreather titrating oxygen down with good effect, now on 10L with sats 92-94% s/p tocilizumab inflammatory biomakers improving, trending down Switches to oral doxy and decadron, prone positioning encouraged was on high brenda at one point but now continues on NRB. Keep sats above 88%. Discussed with patients mother. On discharge she sol lbe the one taking him to her house she is aware that he may need to be on oxygen for a short while. Viral Sepsis. Resolved met sepsis criteria with tachypnea (in the 30s), tachycardia (120s), Fevers (TMax 103+), Leukopenia (4) No evidence of bacterial infection at this time - (empiric doxy) Transaminitis. Trending down Likely viral from covid. DVT pptx, Lovenox Pt endorses his mother has HCP, updated her today Attending Dr. Patel Full code 04/20/21: This loan underwriter spoke with patients mother, Brenda. She had concerns that her son felt like he was not being monitored or getting the proper care. He mentioned to her that he wanted to be transferred to [facility]. Brenda was made aware of the course of care that is ongoing at this time including IV steroids, Iv antibiotics, oxygen therapy via nasal canula, non rebreather, hi brenda ect. He also has a camera in the room and is constantly being monitored. The patient wanted to get up and shower yesterday however due to his poor oxygenation he was informed that he could sit in a chair or sit up in bed and use wash towels/cloths to clean up and he could also walk some in his room if he felt up to it. Conversation was had with the patient and this loan underwriter this morning in person and via his cell phone an hour later and he is aware of his course of tr eatment and when asked about being transferred to [facility] he stated I mind as well finish up treatment here . The patient and his mother, Brenda are both aware that the recovery from covid 19 infection can be long for some people and take more time and unfortunately while hospitalized it can be difficult to be in a quaratine space but they are aware that if at any point the patient required a higher level of care he would be transferred to the ICU. At this point in time he is stable enough for the IMC unit. The patients mom did bring him food from home yesterday and hopefully doing that will help his spirits. She was also told that she can bring in electronics for him to keep him entertained if that helps.?? <Roseanna Adame NP - Last Filed: 04/22/21 13:26> Subjective Subjective Date of Service: 04/22/21 <Roseanna Adame NP - Last Filed: 04/22/21 13:26> 04/22/21 <Neville Patel MD - Last Filed: 04/22/21 18:44> Interval History: Follow up Covid 19 sats stable titrating oxygen no pain or sob <Roseanna Adame NP - Last Filed: 04/22/21 13:26> Physical Exam Vital Signs: Vital Signs: Last Vital Signs Temp 97 F 04/22/21 11:17 Pulse 69 04/22/21 11:17 Resp 18 04/22/21 11:17 BP 132/74 04/22/21 11:17 Pulse Ox 93 04/22/21 11:17 Oxygen Flow Rate 3 04/14/21 18:07 Body Mass Index 38.4 <Roseanna Adame NP - Last Filed: 04/22/21 13:26> Appearing in no acute distress lungs normal expansion heart regular rate rhythm positive bowel sounds, abdomen is soft, nontender neuro patient is alert x3, no focal deficits <Roseanna Adame NP - Last Filed: 04/22/21 13:26> Objective Data Current Medications Generic Name Dose Route Start Last Admin Trade Name Freq PRN Reason Stop Dose Admin Acetaminophen 650 mg 04/14/21 22:14 04/16/21 21:58 Acetaminophen 325 Mg Tablet PO 650 mg Q6H PRN Administration Pain, Mild (Pain Scale 1-3) Albuterol Sulfate 2 puff 04/14/21 22:14 04/16/21 01:49 Albuterol Sulfate 90 Mcg 8 Gm Inhaler INHALE 2 puff RQ4H PRN Administration Shortness of Breath/Wheezing Benzonatate 100 mg 04/15/21 23:07 04/21/21 21:19 Benzonatate 100 Mg Capsule PO 100 mg TID PRN Administration Cough Dexamethasone 6 mg 04/23/21 09:00 Dexamethasone 6 Mg Tablet PO DAILY JUSTIN Doxycycline Hyclate 100 mg 04/18/21 20:00 04/22/21 09:12 Doxycycline Hyclate 100 Mg Tablet PO 100 mg Q12H JUSTIN Administration Enoxaparin Sodium 40 mg 04/14/21 22:15 04/21/21 21:19 Enoxaparin Sodium 40 Mg/0.4 Ml Syringe SUBCUT 40 mg Q24H JUSTIN Administration Melatonin 6 mg 04/14/21 22:14 04/21/21 21:31 Melatonin 3 Mg Tablet PO 6 mg BEDTIME PRN Administration Insomnia Ondansetron HCl 4 mg 04/16/21 02:28 04/16/21 02:51 Ondansetron Hcl 4 Mg/2 Ml Vial IVPUSH 4 mg Q8H PRN Administration Nausea and Vomiting Pharmacy Consult 1 each 04/16/21 04:09 Consult Rx Vancomycin Dosing MISCELLANE DAILY PRN Consult order Senna 17.2 mg 04/14/21 22:14 Sennosides 8.6 Mg Tablet PO BEDTIME PRN Constipation Sodium Chloride 3 ml 04/15/21 00:00 04/22/21 09:12 0.9 % Sodium Chloride Flush 3 Ml Syringe IVFLUSH 3 ml QSHIFT JUSTIN Administration Trazodone HCl 25 mg 04/19/21 15:39 04/21/21 21:31 Trazodone Hcl 25 Mg Halftab PO 25 mg BEDTIME PRN Administration Insomnia <Roseanna Adame NP - Last Filed: 04/22/21 13:26> Labs CBC & Chem 7: : 04/22/21 07:47 04/22/21 07:47 <Roseanna Adame NP - Last Filed: 04/22/21 13:26> Labs: Laboratory Results - last 24 hr 04/22/21 04/22/21 07:47 07:47 MCV 83.9 MCH 30.1 MCHC 35.9 RDW 12.8 Plt Count 386 MPV 9.3 L Absolute Nucleated RBC 0.000 Nucleated RBC % (auto) 0.0 Anion Gap 13 Estim Creat Clear Calc 199.8 Estimated GFR > 60 Random Glucose 95 Calcium 9.1 Ferritin 987 H Total Bilirubin 0.7 Direct Bilirubin 0.3 AST 40 H D ALT 118 H Alkaline Phosphatase 48 Lactate Dehydrogenase 610 H Total Protein 5.8 L Albumin 3.5 <Roseanna Adame NP - Last Filed: 04/22/21 13:26> Microbiology Microbiology Results: Microbiology 04/14/21 19:39 Blood - Subclavian Blood Culture - Final No growth after 5 days. 04/14/21 19:39 Blood - Subclavian Blood Culture - Final No growth after 5 days. <Roseanna Adame NP - Last Filed: 04/22/21 13:26> Quality Stroke Does the patient have a stroke diagnosis?: No <Roseanna Adame NP - Last Filed: 04/22/21 13:26> VTE Prior VTE?: No <Roseanna Adame NP - Last Filed: 04/22/21 13:26> VTE Risk Level:: Medical - moderate - high <Roseanna Adame NP - Last Filed: 04/22/21 13:26> VTE Device Contraindication: Treatment Not Indicated <Roseanna Adame NP - Last Filed: 04/22/21 13:26> VTE Drug Contraindication: N/A - Med Ordered <Roseanna Adame NP - Last Filed: 04/22/21 13:26>
[2021-04-22] MEDS: Enoxaparin Sodium 40 MG/0.4 ML SYRINGE SUBCUT (21:48)
[2021-04-23] VITALS (9 sets, daily range): BP systolic 116–133; BP diastolic 56–67; PULSE 65–108; RESP 18–26; TEMP 36.2–37; O2SAT 84–98
[2021-04-23] MEDS: Melatonin 3 MG TABLET 6 MG PO ×2 (00:12→22:35)
[2021-04-23] MEDS: 0.9 % Sodium Chloride Flush 3 ML SYRINGE IVFLUSH ×4 (00:12→20:08)
[2021-04-23] MEDS: traZODone HCL 25 MG HALFTAB PO (00:12)
[2021-04-23 06:54] LABS: Hemoglobin 15.8 g/dl (14.0-18.0); Mean Corpuscular HGB Conc 35.1 g/dl (31.0-36.0); Mean Corpuscular Hemoglobin 29.8 pg (27.0-33.0); Mean Corpuscular Volume 84.9 fL (80-98); Mean Platelet Volume 9.2 fL (9.4-12.4); Platelet Count 394 X10*3/uL (160-400); White Blood Count 8.5 X10*3/uL (4.8-10.8)
[2021-04-23 07:05] LABS: Anion Gap 14 (12-20); Blood Urea Nitrogen 16 mg/dL (9-16); Calcium 8.9 mg/dL (8.4-10.2); Carbon Dioxide 25 mmol/L (22-29); Chloride 102 mmol/L (96-108); Creatinine Clr Calc Pharmacy 199.8; Estimated Glomerular Filt Rate > 60; Glucose Random 87 mg/dL (60-115); Potassium 4.1 mmol/L (3.3-5.1); Sodium 137 mmol/L (135-145)
--- NOTE | 2021-04-23 08:15 | P.PNIM_ITS ---
Progress Note: A&P (1) COVID-19: Status: Acute <Roseanna Deep, SLICING MACHINE OPERATOR - Last Filed: 04/23/21 13:27> Assessment and Plan: This is a 20 yo M, who is unvaccinated for COVID-19, who initially went to urgent care for GI symptoms and was referred to the ED. He has been diagnosed with COVID-19 with typical findings on the CT scan. He is admitted for further treatment. Acute Respiratory Failure with Hypoxia secondary to COVID 19 s/p tocilizumab inflammatory biomakers improving, trending down Had seemed to be plateauing on NRB over last several days today after attempting to titrate down to Venti mask patient desatted into the 60s, some degree of anxiety may have also caused this He was placed on his side and respiratory therapist restarted him on high-flow 55/100 sats at 90% Discussed case with Dr. Miller(ICU), Rec: Ivermectin, solumedrol 80mg BID (change drom decadron), vit c, D, thiamine, BID Lovenox, asa 81mg continue doxy Discussed with ID, will obtain CTA to rule out PE, hold off on Ivermectin for now as per ID. Viral Sepsis. Resolved met sepsis criteria with tachypnea (in the 30s), tachycardia (120s), Fevers (TMax 103+), Leukopenia (4) No evidence of bacterial infection at this time - (empiric doxy) Transaminitis. Trending down Likely viral from covid. DVT pptx, Lovenox 40mg BID Pt endorses his mother has HCP, updated her today Attending Dr. Patel Full code 04/20/21: This senior writer spoke with patients mother, Brenda. She had concerns that her son felt like he was not being monitored or getting the proper care. He mentioned to her that he wanted to be transferred to [facility]. Brenda was made aware of the course of care that is ongoing at this time including IV steroids, Iv antibiotics, oxygen therapy via nasal canula, non rebreather, hi brenda ect. He also has a camera in the room and is constantly being monitored. The patient wanted to get up and shower yesterday however due to his poor oxygenation he was informed that he could sit in a chair or sit up in bed and use wash towels/cloths to clean up and he could also walk some in his room if he felt up to it. Conversation was had with the patient and this senior writer this morning in person and via his cell phone an hour later and he is aware of his course of treatment and when asked about being transferred to [facility] he stated I mind as well finish up treatment here . The patient and his mother, Brenda are both aware that the recovery from covid 19 infection can be long for some people and take more time and unfortunately while hospitalized it can be difficult to be in a quaratine space but they are aware that if at any point the patient required a higher level of care he would be transferred to the ICU. At this point in time he is stable enough for the IMC unit. The patients mom did bring him food from home yesterday and hopefully doing that will help his spirits. She was also told that she can bring in electronics for him to keep him entertained if that helps.?? <Roseanna Adame NP - Last Filed: 04/23/21 13:27> Subjective Subjective Date of Service: 04/23/21 <Roseanna Adame NP - Last Filed: 04/23/21 13:27> 04/23/21 <Neville Patel MD - Last Filed: 04/23/21 16:10> Interval History: Follow up covid 19, hypoxia, new cough Some sob when o2 titrated down overall feels ok not eating much <Roseanna Adame NP - Last Filed: 04/23/21 13:27> Physical Exam Vital Signs: Vital Signs: Last Vital Signs Temp 97.8 F 04/23/21 07:34 Pulse 88 04/23/21 04:00 Resp 18 04/23/21 07:34 BP 133/67 04/23/21 07:34 Pulse Ox 92 04/23/21 07:34 Oxygen Flow Rate 3 04/14/21 18:07 Body Mass Index 38.4 <Roseanna Adame NP - Last Filed: 04/23/21 13:27> Appearing in no acute distress lung sounds normal expansion heart regular rate rhythm, clear S1, S2, mild tachycardia positive bowel sounds, abdomen is soft, nontender neuro patient is alert x3, no focal deficits <Roseanna Adame NP - Last Filed: 04/23/21 13:27> Objective Data Current Medications Generic Name Dose Route Start Last Admin Trade Name Freq PRN Reason Stop Dose Admin Acetaminophen 650 mg 04/14/21 22:14 04/16/21 21:58 Acetaminophen 325 Mg Tablet PO 650 mg Q6H PRN Administration Pain, Mild (Pain Scale 1-3) Albuterol Sulfate 2 puff 04/14/21 22:14 04/16/21 01:49 Albuterol Sulfate 90 Mcg 8 Gm Inhaler INHALE 2 puff RQ4H PRN Administration Shortness of Breath/Wheezing Benzonatate 100 mg 04/15/21 23:07 04/21/21 21:19 Benzonatate 100 Mg Capsule PO 100 mg TID PRN Administration Cough Dexamethasone 6 mg 04/23/21 09:00 Dexamethasone 6 Mg Tablet PO DAILY JUSTIN Doxycycline Hyclate 100 mg 04/18/21 20:00 04/22/21 19:52 Doxycycline Hyclate 100 Mg Tablet PO 100 mg Q12H JUSTIN Administration Enoxaparin Sodium 40 mg 04/14/21 22:15 04/22/21 21:48 Enoxaparin Sodium 40 Mg/0.4 Ml Syringe SUBCUT 40 mg Q24H JUSTIN Administration Melatonin 6 mg 04/14/21 22:14 04/23/21 00:12 Melatonin 3 Mg Tablet PO 6 mg BEDTIME PRN Administration Insomnia Ondansetron HCl 4 mg 04/16/21 02:28 04/16/21 02:51 Ondansetron Hcl 4 Mg/2 Ml Vial IVPUSH 4 mg Q8H PRN Administration Nausea and Vomiting Senna 17.2 mg 04/14/21 22:14 Sennosides 8.6 Mg Tablet PO BEDTIME PRN Constipation Sodium Chloride 3 ml 04/15/21 00:00 04/23/21 00:12 0.9 % Sodium Chloride Flush 3 Ml Syringe IVFLUSH 3 ml QSHIFT JUSTIN Administration Trazodone HCl 25 mg 04/19/21 15:39 04/23/21 00:12 Trazodone Hcl 25 Mg Halftab PO 25 mg BEDTIME PRN Administration Insomnia <Roseanna Adame NP - Last Filed: 04/23/21 13:27> Labs CBC & Chem 7: : 04/23/21 05:47 04/23/21 05:47 <Roseanna Adame NP - Last Filed: 04/23/21 13:27> Labs: Laboratory Results - last 24 hr 04/22/21 04/23/21 04/23/21 07:47 05:47 05:47 MCV 84.9 MCH 29.8 MCHC 35.1 RDW 13.0 Plt Count 394 MPV 9.2 L Absolute Nucleated RBC 0.000 Nucleated RBC % (auto) 0.0 Anion Gap 13 14 Estim Creat Clear Calc 199.8 199.8 Estimated GFR > 60 > 60 Random Glucose 95 87 Calcium 9.1 8.9 Ferritin 987 H Total Bilirubin 0.7 Direct Bilirubin 0.3 AST 40 H D ALT 118 H Alkaline Phosphatase 48 Lactate Dehydrogenase 610 H Total Protein 5.8 L Albumin 3.5 <Roseanna Adame NP - Last Filed: 04/23/21 13:27> Microbiology Microbiology Results: Microbiology 04/14/21 19:39 Blood - Subclavian Blood Culture - Final No growth after 5 days. 04/14/21 19:39 Blood - Subclavian Blood Culture - Final No growth after 5 days. <Roseanna Adame NP - Last Filed: 04/23/21 13:27> Quality Stroke Does the patient have a stroke diagnosis?: No <Roseanna Adame NP - Last Filed: 04/23/21 13:27> VTE Prior VTE?: No <Roseanna Adame NP - Last Filed: 04/23/21 13:27> VTE Risk Level:: Medical - moderate - high <Roseanna Adame NP - Last Filed: 04/23/21 13:27> VTE Device Contraindication: Treatment Not Indicated <Roseanna Adame NP - Last Filed: 04/23/21 13:27> VTE Drug Contraindication: N/A - Med Ordered <Roseanna Adame NP - Last Filed: 04/23/21 13:27>
[2021-04-23] MEDS: dexAMETHasone 6 MG TABLET PO (08:30)
--- NOTE | 2021-04-23 12:00 | MHC.CM.PN ---
Male 20 DX Covid He is not ready for discharge today. LOS R/T continued need for High flow Oxygen. DP home no services with family transportation. CM will follow to assess for a change in needs at [facility].
[2021-04-23] MEDS: Enoxaparin Sodium 40 MG/0.4 ML SYRINGE SUBCUT ×2 (12:18→20:09)
[2021-04-23] MEDS: Cholecalciferol (Vitamin D3) 25 MCG TABLET 50 MCG PO (12:19)
[2021-04-23] MEDS: methylPREDNISolone Sod Succ 125 MG/2 ML VIAL 80 MG IVPUSH ×2 (12:19→22:34)
[2021-04-23] MEDS: Ascorbic Acid 500 MG TABLET 1000 MG PO ×3 (12:19→20:08)
[2021-04-23] MEDS: iohexoL 350 MG/ML 100 ML INFUS..BTL IV (15:15)
[2021-04-23] MEDS: Benzonatate 100 MG CAPSULE PO (16:25)
[2021-04-23] MEDS: Thiamine HCL 100 MG TABLET 200 MG PO (20:09)
[2021-04-23] MEDS: traZODone HCL 50 MG TABLET PO (22:35)
[2021-04-24] VITALS (12 sets, daily range): BP systolic 110–153; BP diastolic 61–78; PULSE 56–110; RESP 18–24; TEMP 36.1–37.2; O2SAT 90–93
[2021-04-24 07:04] LABS: Anion Gap 15 (12-20); Blood Urea Nitrogen 17 mg/dL (9-16); Calcium 9.4 mg/dL (8.4-10.2); Carbon Dioxide 25 mmol/L (22-29); Chloride 103 mmol/L (96-108); Creatinine Clr Calc Pharmacy 207.4; Estimated Glomerular Filt Rate > 60; Glucose Random 112 mg/dL (60-115); Potassium 4.7 mmol/L (3.3-5.1); Sodium 138 mmol/L (135-145)
--- NOTE | 2021-04-24 07:43 | P.PNIM_ITS ---
Progress Note: A&P (1) Acute respiratory failure: Status: Acute <Roseanna Adame NP - Last Filed: 04/28/21 11:44> Assessment and Plan: This is a 20 yo M, who is unvaccinated for COVID-19, who initially went to urgent care for GI symptoms and was referred to the ED. He has been diagnosed with COVID-19 with typical findings on the CT scan. He is admitted for further treatment. Acute Respiratory Failure with Hypoxia secondary to COVID 19 s/p tocilizumab inflammatory biomakers improving, trending down Chest CTA showed progression of diffuse bilateral interstitial and airspace disease? Had seemed to be plateauing on NRB over last several days attempt was made to titrate down to Venti mask patient desatted into the 60s, some degree of anxiety may have also caused this placed on his side, respiratory therapist restarted him on high-flow 55/100 sats at 90% Discussed case with Dr. Miller(ICU), Rec: Ivermectin, solumedrol 80mg BID (change from decadron), vit c, D, thiamine, BID Lovenox, asa 81mg Discussed case with Dr. Jackman (Pulmonology), stop doxycycline, continue all other treatment hold off on Ivermectin for now as per ID. Anxiety Care team consult encouraged his mom to bring in things he likes from home. Viral Sepsis. Resolved met sepsis criteria with tachypnea (in the 30s), tachycardia (120s), Fevers (TMax 103+), Leukopenia (4) No evidence of bacterial infection at this time - (empiric doxy) Transaminitis. Trending down Likely viral from covid. DVT pptx, Lovenox 40mg BID DISPO long haul covid, oxygen treatment. He may be able to go to a facility for this, case management to look into it Pt endorses his mother as HCP, updated her today Attending Dr. Patel Full code <Roseanna Adame NP - Last Filed: 04/28/21 11:44> Subjective Subjective Date of Service: 04/28/21 <Roseanna Adame NP - Last Filed: 04/28/21 11:44> 05/24/21 <Neville Patel MD - Last Filed: 05/24/21 08:21> Interval History: Follow up covid 19 CT Showing progression of airway process still with cough only sob with oxygen titration <Roseanna Adame NP - Last Filed: 04/28/21 11:44> Physical Exam Vital Signs: Vital Signs: Last Vital Signs Temp 97.0 F 04/24/21 04:00 Pulse 57 04/24/21 04:00 Resp 20 04/24/21 07:29 BP 129/61 04/24/21 04:00 Pulse Ox 92 04/24/21 04:00 Oxygen Flow Rate 3 04/14/21 18:07 Body Mass Index 38.4 <Roseanna Adame NP - Last Filed: 04/28/21 11:44> Appearing in no acute distress lung sounds diminished, coarse but moving air heart regular rate rhythm, clear S1, S2 positive bowel sounds, abdomen is soft, nontender neuro patient is alert x3, no focal deficits <Roseanna Adame NP - Last Filed: 04/28/21 11:44> Objective Data Current Medications Generic Name Dose Route Start Last Admin Trade Name Freq PRN Reason Stop Dose Admin Acetaminophen 650 mg 04/14/21 22:14 04/16/21 21:58 Acetaminophen 325 Mg Tablet PO 650 mg Q6H PRN Administration Pain, Mild (Pain Scale 1-3) Albuterol Sulfate 2 puff 04/14/21 22:14 04/16/21 01:49 Albuterol Sulfate 90 Mcg 8 Gm Inhaler INHALE 2 puff RQ4H PRN Administration Shortness of Breath/Wheezing Ascorbic Acid 1,000 mg 04/23/21 13:00 04/23/21 20:08 Ascorbic Acid 500 Mg Tablet PO 1,000 mg QID JUSTIN Administration Aspirin 81 mg 04/24/21 09:00 Aspirin 81 Mg Tab.Chew PO DAILY JUSTIN Benzonatate 100 mg 04/15/21 23:07 04/23/21 16:25 Benzonatate 100 Mg Capsule PO 100 mg TID PRN Administration Cough Doxycycline Hyclate 100 mg 04/18/21 20:00 04/23/21 20:08 Doxycycline Hyclate 100 Mg Tablet PO 100 mg Q12H JUSTIN Administration Enoxaparin Sodium 40 mg 04/23/21 10:15 04/23/21 20:09 Enoxaparin Sodium 40 Mg/0.4 Ml Syringe SUBCUT 40 mg BID JUSTIN Administration Melatonin 6 mg 04/14/21 22:14 04/23/21 22:35 Melatonin 3 Mg Tablet PO 6 mg BEDTIME PRN Administration Insomnia Methylprednisolone Sodium Succinate 80 mg 04/23/21 11:15 04/23/21 22:34 Methylprednisolone Sod Succ 125 Mg/2 Ml Vial IVPUSH 80 mg Q12H JUSTIN Administration Ondansetron HCl 4 mg 04/16/21 02:28 04/16/21 02:51 Ondansetron Hcl 4 Mg/2 Ml Vial IVPUSH 4 mg Q8H PRN Administration Nausea and Vomiting Senna 17.2 mg 04/14/21 22:14 Sennosides 8.6 Mg Tablet PO BEDTIME PRN Constipation Sodium Chloride 3 ml 04/15/21 00:00 04/23/21 20:08 0.9 % Sodium Chloride Flush 3 Ml Syringe IVFLUSH 3 ml QSHIFT JUSTIN Administration Thiamine HCl 200 mg 04/23/21 21:00 04/23/21 20:09 Thiamine Hcl 100 Mg Tablet PO 200 mg BID JUSTIN Administration Trazodone HCl 50 mg 04/23/21 11:14 04/23/21 22:35 Trazodone Hcl 50 Mg Tablet PO 50 mg BEDTIME PRN Administration Insomnia Vitamin D 50 mcg 04/23/21 10:00 04/23/21 12:19 Cholecalciferol (Vitamin D3) 25 Mcg Tablet PO 50 mcg DAILY JUSTIN Administration <Roseanna Adame NP - Last Filed: 04/28/21 11:44> Labs CBC & Chem 7: : 05/01/21 05:26 05/01/21 05:26 <Roseanna Adame NP - Last Filed: 04/28/21 11:44> Labs: Laboratory Results - last 24 hr 04/24/21 05:30 Anion Gap 15 Estim Creat Clear Calc 207.4 Estimated GFR > 60 Random Glucose 112 Calcium 9.4 <Roseanna Adame NP - Last Filed: 04/28/21 11:44> Microbiology Microbiology Results: Microbiology 04/14/21 19:39 Blood - Subclavian Blood Culture - Final No growth after 5 days. 04/14/21 19:39 Blood - Subclavian Blood Culture - Final No growth after 5 days. <Roseanna Adame NP - Last Filed: 04/28/21 11:44> Quality Stroke Does the patient have a stroke diagnosis?: No <Roseanna Adame NP - Last Filed: 04/28/21 11:44> VTE Prior VTE?: No <Roseanna Adame NP - Last Filed: 04/28/21 11:44> VTE Risk Level:: Medical - moderate - high <Roseanna Adame NP - Last Filed: 04/28/21 11:44> VTE Device Contraindication: Treatment Not Indicated <Roseanna Adame NP - Last Filed: 04/28/21 11: 44> VTE Drug Contraindication: N/A - Med Ordered <Roseanna Adame NP - Last Filed: 04/28/21 11:44>
[2021-04-24 08:23] LABS: Alanine Aminotransferase 76 U/L (0-40); Albumin Level 3.7 g/dL (3.5-5.0); Alkaline Phosphatase 49 U/L (39-117); Aspartate Amino Transferase 31 U/L (5-37); Bilirubin Direct 0.4 mg/dL (0.0-0.5); Bilirubin Total 1.1 mg/dL (0.0-1.0); Lactate Dehydrogenase 607 U/L (118-273)
[2021-04-24 08:44] LABS: Ferritin 963 ng/mL (20-250)
[2021-04-24] MEDS: Enoxaparin Sodium 40 MG/0.4 ML SYRINGE SUBCUT ×2 (09:34→20:33)
[2021-04-24] MEDS: Ascorbic Acid 500 MG TABLET 1000 MG PO ×4 (09:35→20:33)
[2021-04-24] MEDS: Aspirin 81 MG TAB.CHEW PO (09:35)
[2021-04-24] MEDS: 0.9 % Sodium Chloride Flush 3 ML SYRINGE IVFLUSH ×3 (09:35→20:34)
[2021-04-24] MEDS: Thiamine HCL 100 MG TABLET 200 MG PO ×2 (09:35→20:33)
[2021-04-24] MEDS: Cholecalciferol (Vitamin D3) 25 MCG TABLET 50 MCG PO (09:35)
--- NOTE | 2021-04-24 10:03 | PM.CNPUL ---
History of Present Illness History of Present Illness Consult date: 04/24/21 Chief complaint: Hypoxia/ Covid positive Narrative: I I HAVE SEEN THIS 20 YEARS OLD GENTLEMAN THIS MORNING FOR PULMONARY EVALUATION AND ADVICE. HISTORY IS REVIEWED AND PATIENT EXAMINED IN THE ROOM. HE IS QUITE COOPERATIVE. HE WAS ADMITTED ON 04/14 WITH ABOUT 1 WEEK'S HISTORY OF NAUSEA VOMITING AND INCREASED SHORTNESS OF BREATH. HIS ROOMMATE WAS TESTED POSITIVE FOR COVID, BUT DID NOT REQUIRE HOSPITALIZATION. HE CLAIMS THAT HE PROBABLY CONTRACTED COVID FROM A BAR , UNDER ADMISSION HE WAS NOTED TO BE QUITE HYPOXEMIC, TREATED WITH HIGH-FLOW OXYGEN, DEXAMETHASONE, AZITHROMYCIN AND ROCEPHIN, AND ALSO RECEIVED TOCILIZUMAB. INITIALLY HE WAS IMPROVING, FROM HIGH-FLOW WAS DOWN TO NRB MASK AND BEING TRIED ON THE VENTIMASK, HOWEVER ON WHILE BEING TRIED ON VENTIMASK HE BECAME SO MUCH MORE HYPOXEMIC. REPEAT CTA OF THE CHEST FOUND TO BE NEGATIVE FOR PULMONARY EMBOLISM BUT SHOWED PROGRESSIVE INTERSTITIAL LUNG DISEASE. OVERALL HE IS AFEBRILE, COMFORTABLE BUT REQUIRING HIGH-FLOW AT 50 L/MINUTE. PAST MEDICAL HISTORY IS NOT REMARKABLE, EXCEPT THAT HE IS GROSSLY OVERWEIGHT, BMI 38. DENIES SMOKING. Review of Systems Review of Systems: Yes all other systems are reviewed and are negative Neurologic: Reports Abnormal speech present [facility] Past Medical History Medical History (Updated 04/24/21 @ 10:14 by Herman Jackman MD) Acquired respiratory distress syndrome Social History Social History Household Members: Friend(s) Housing: Apartment Do you presently have visiting nurse or other home services: No Alcohol intake: current Alcohol intake frequency: a few times a week Patient Tobacco Use Status: Never used Tobacco Use of substances other than those prescribed or required for medical reasons: No Currently Displaying Signs/Symptoms of Drug Intoxication Withdrawal: No Have you been hit, kicked, punched, or otherwise hurt by someone within the past year? If so, by whom?: No Do you feel safe in your current relationship?: No Current Relationship Is there a partner from a previous relationship who is making you feel unsafe now?: No Are you made to feel afraid or neglected: No Advance Directives: No Advance Directives Information Provided: No Advance Directives on File: No Do you have thoughts of harming others: None Do you have a plan to hurt others: No Plan Recently lost weight without trying: No Nutrition Risks: No Nutritional Risk Poor oral hygiene: No service: No Meds Allergies Allergy/AdvReac Type Severity Reaction Status Date / Time No Known Allergies Allergy Verified 04/14/21 16:50 Active Medications: Current Medications Generic Name Dose Route Start Last Admin Trade Name Freq PRN Reason Stop Dose Admin Acetaminophen 650 mg 04/14/21 22:14 04/16/21 21:58 Acetaminophen 325 Mg Tablet PO 650 mg Q6H PRN Administration Pain, Mild (Pain Scale 1-3) Albuterol Sulfate 2 puff 04/14/21 22:14 04/16/21 01:49 Albuterol Sulfate 90 Mcg 8 Gm Inhaler INHALE 2 puff RQ4H PRN Administration Shortness of Breath/Wheezing Ascorbic Acid 1,000 mg 04/23/21 13:00 04/24/21 09:35 Ascorbic Acid 500 Mg Tablet PO 1,000 mg QID JUSTIN Administration Aspirin 81 mg 04/24/21 09:00 04/24/21 09:35 Aspirin 81 Mg Tab.Chew PO 81 mg DAILY JUSTIN Administration Benzonatate 100 mg 04/15/21 23:07 04/23/21 16:25 Benzonatate 100 Mg Capsule PO 100 mg TID PRN Administration Cough Doxycycline Hyclate 100 mg 04/18/21 20:00 04/24/21 09:34 Doxycycline Hyclate 100 Mg Tablet PO 100 mg Q12H JUSTIN Administration Enoxaparin Sodium 40 mg 04/23/21 10:15 04/24/21 09:34 Enoxaparin Sodium 40 Mg/0.4 Ml Syringe SUBCUT 40 mg BID JUSTIN Administration Melatonin 6 mg 04/14/21 22:14 04/23/21 22:35 Melatonin 3 Mg Tablet PO 6 mg BEDTIME PRN Administration Insomnia Methylprednisolone Sodium Succinate 80 mg 04/23/21 11:15 04/23/21 22:34 Methylprednisolone Sod Succ 125 Mg/2 Ml Vial IVPUSH 80 mg Q12H JUSTIN Administration Ondansetron HCl 4 mg 04/16/21 02:28 04/16/21 02:51 Ondansetron Hcl 4 Mg/2 Ml Vial IVPUSH 4 mg Q8H PRN Administration Nausea and Vomiting Senna 17.2 mg 04/14/21 22:14 Sennosides 8.6 Mg Tablet PO BEDTIME PRN Constipation Sodium Chloride 3 ml 04/15/21 00:00 04/24/21 09:35 0.9 % Sodium Chloride Flush 3 Ml Syringe IVFLUSH 3 ml QSHIFT JUSTIN Administration Thiamine HCl 200 mg 04/23/21 21:00 04/24/21 09:35 Thiamine Hcl 100 Mg Tablet PO 200 mg BID JUSTIN Administration Trazodone HCl 50 mg 04/23/21 11:14 04/23/21 22:35 Trazodone Hcl 50 Mg Tablet PO 50 mg BEDTIME PRN Administration Insomnia Vitamin D 50 mcg 04/23/21 10:00 04/24/21 09:35 Cholecalciferol (Vitamin D3) 25 Mcg Tablet PO 50 mcg DAILY JUSTIN Administration Home Medications Medication Instructions Recorded Confirmed Last Taken Type No Known Home Meds 04/14/21 04/14/21 Unknown History Physical Exam Vital Signs: Vital Signs: Last Vital Signs Temp 97.9 F 04/24/21 08:00 Pulse 82 04/24/21 08:00 Resp 20 04/24/21 08:00 BP 127/62 04/24/21 08:00 Pulse Ox 91 L 04/24/21 08:00 Oxygen Flow Rate 3 04/14/21 18:07 Body Mass Index 38.4 Const: General: comfortable, no acute distress, alert and awake Orientation/consciousness: patient oriented x3 HENMT: Head: Yes normal to inspection General nose exam: No nasal polyps present and No nasal discharge present Face and sinus: Yes sinuses nontender Mouth: oropharynx normal Throat: Yes posterior oropharynx normal Eyes: General: appearance normal, both eyes and all related structures Neck: Neck: Yes normal visual inspection, Yes no lymphadenopathy, Yes trachea midline and Yes no JVD Thyroid: Thyroid normal Chest: Chest palpation & inspection: normal inspection of the chest, normal palpation of entire chest wall and no tenderness Resp: Other: HE DOES HAVE GOOD AND EQUAL BREATH SOUNDS ON BOTH SIDES, NO WHEEZES. FINE INSPIRATORY CREPITATIONS HEARD, OVER LOWER LOBES IN A SCATTERED DISTRIBUTION. Cardio: Palpation: normal PMI Rate: regular rate Rhythm: regular rhythm Heart sounds: no gallops and no murmurs Peripheral pulses: Peripheral pulses 2+ throughout GI: Palpation (GI): Soft to palpation, nontender, No hepatosplenomegaly present and no masses Auscultation: normal bowel sounds Back/Spine/Pelvis: Thoracic/Lumbar Spine: thoracic and lumbar spine normal to inspection Skin: General skin exam: no rashes or lesions noted Neuro: General: patient oriented x3 and no focal motor deficits Cranial nerves: Yes CN's II-XII intact bilaterally Speech: Abnormal speech present Extrem: General: Yes normal to inspection, Yes no clubbing, cyanosis or edema and Yes no calf tenderness Psych: Speech and movement: Normal speech and movement present Results Laboratory Findings CBC and BMP: 04/23/21 05:47 04/24/21 05:30 ABG, PT/INR, D-dimer: PT/INR, D-dimer D-Dimer 2578 NG/ML 04/18/21 06:45 Abnormal lab findings: Abnormal Labs 04/14/21 04/14/21 04/14/21 17:12 17:12 17:12 WBC 4.0 L MCHC 36.7 H Plt Count 140 L MPV Immature Gran % (Auto) Neut % (Auto) Lymph % (Auto) Lymph # (Auto) Abs Immat Gran (auto) ABG pH at Pt Temp ABG pH (Temp Correct) ABG pCO2 at Pt Temp ABG pCO2 (Temp Corrct ABG pO2 at Pt Temp ABG pO2 (Temp Correct ABG HCO3 Sodium 130 L Carbon Dioxide 20 L BUN Random Glucose Calcium 8.3 L Ferritin Total Bilirubin AST ALT Lactate Dehydrogenase C-Reactive Protein Total Protein Albumin COVID-19 (SUZE) Positive A 04/15/21 04/15/21 04/16/21 05:25 05:25 03:42 WBC 4.2 L MCHC Plt Count MPV Immature Gran % (Auto) 0.5 H Neut % (Auto) Lymph % (Auto) Lymph # (Auto) 1.0 L Abs Immat Gran (auto) ABG pH at Pt Temp 7.63 H* ABG pH (Temp Correct) 7.64 H* ABG pCO2 at Pt Temp 17 L* ABG pCO2 (Temp Corrct 17 L* ABG pO2 at Pt Temp 63 L ABG pO2 (Temp Correct 61 L ABG HCO3 18 L Sodium Carbon Dioxide 19 L BUN Random Glucose 133 H Calcium Ferritin 4409 H Total Bilirubin AST 265 H ALT 164 H Lactate Dehydrogenase 1282 H C-Reactive Protein 5.07 H Total Protein Albumin COVID-19 (SUZE) 04/16/21 04/16/2104/17/21 04:26 04:26 05:19 WBC MCHC 36.1 H Plt Count MPV Immature Gran % (Auto) 0.8 H 0.6 H Neut % (Auto) 80.2 H 79.9 H Lymph % (Auto) 13.4 L 13.4 L Lymph # (Auto) 1.1 L 0.8 L Abs Immat Gran (auto) 0.07 H 0.04 H ABG pH at Pt Temp ABG pH (Temp Correct) ABG pCO2 at Pt Temp ABG pCO2 (Temp Corrct ABG pO2 at Pt Temp ABG pO2 (Temp Correct ABG HCO3 Sodium Carbon Dioxide BUN Random Glucose Calcium 8.2 L Ferritin 3704 H Total Bilirubin AST ALT Lactate Dehydrogenase 1070 H C-Reactive Protein 2.75 H Total Protein Albumin COVID-19 (SUZE) 04/17/21 04/18/21 04/18/21 05:19 06:45 06:45 WBC 4.7 L MCHC Plt Count MPV Immature Gran % (Auto) Neut % (Auto) Lymph % (Auto) Lymph # (Auto) Abs Immat Gran (auto) ABG pH at Pt Temp ABG pH (Temp Correct) ABG pCO2 at Pt Temp ABG pCO2 (Temp Corrct ABG pO2 at Pt Temp ABG pO2 (Temp Correct ABG HCO3 Sodium Carbon Dioxide 31 H BUN 18 H Random Glucose Calcium Ferritin Total Bilirubin AST 69 H ALT 111 H Lactate Dehydrogenase C-Reactive Protein 5.14 H 1.27 H Total Protein 5.9 L Albumin 3.4 L COVID-19 (SUZE) 04/20/21 04/20/21 04/22/21 09:21 09:21 07:47 WBC MCHC Plt Count MPV 9.3 L Immature Gran % (Auto) Neut % (Auto) Lymph % (Auto) Lymph # (Auto) Abs Immat Gran (auto) ABG pH at Pt Temp ABG pH (Temp Correct) ABG pCO2 at Pt Temp ABG pCO2 (Temp Corrct ABG pO2 at Pt Temp ABG pO2 (Temp Correct ABG HCO3 Sodium Carbon Dioxide BUN 18 H Random Glucose Calcium Ferritin 1490 H Total Bilirubin AST 82 H ALT 170 H Lactate Dehydrogenase 693 H C-Reactive Protein Total Protein 5.8 L Albumin COVID-19 (SUZE) 04/22/21 04/23/21 04/24/21 07:47 05:47 05:30 WBC MCHC Plt Count MPV 9.2 L Immature Gran % (Auto) Neut % (Auto) Lymph % (Auto) Lymph # (Auto) Abs Immat Gran (auto) ABG pH at Pt Temp ABG pH (Temp Correct) ABG pCO2 at Pt Temp ABG pCO2 (Temp Corrct ABG pO2 at Pt Temp ABG pO2 (Temp Correct ABG HCO3 Sodium Carbon Dioxide BUN 17 H Random Glucose Calcium Ferritin 987 H 963 H Total Bilirubin 1.1 H AST 40 H D ALT 118 H 76 H Lactate Dehydrogenase 610 H 607 H C-Reactive Protein Total Protein 5.8 L 6.0 L Albumin COVID-19 (SUZE) Microbiology: Microbiology 04/14/21 19:39 Blood - Subclavian Blood Culture - Final No growth after 5 days. 04/14/21 19:39 Blood - Subclavian Blood Culture - Final No growth after [address] scan - chest: image reviewed (CTA OF THE CHEST ON 04/14 SHOWED DISCRETE ROUNDED MULTIPLE DENSITIES IN BOTH LUNGS, CONSISTENT WITH COVID PNEUMONIA. CTA OF CHEST ON 04/23 SHOWS PROGRESSIVE INTERSTITIAL LUNG DISEASE WITH ROUNDED DENSITIES AND INTERSTITIAL PNEUMONITIS) Assessment and Plan (1) Acquired respiratory distress syndrome: Status: Acute Patient is having increased respiratory distress due to, severe we Q abnormality, causing severe hypoxemia. Interstitial densities secondary to COVID pneumonia or definitely progressive. Plan is: To continue high-flow oxygen, with the goal of keeping O2 sat above 90%. As patient stabilizes and starts improving then gradually wean of the high-flow and try Ventimask or nasal cannula. (2) COVID-19: Status: Acute Patient does have established diagnosis of COVID-19 infection. (3) Pneumonia due to 2019-nCoV: Status: Acute On admission patient had bilateral COVID pneumonia, with typical alveolar densities. Has been treated with appropriate agents including dexamethasone, antibiotics, Tucilizumab., and still getting worse. Gross obesity is an added risk factor in his case. At this point we should try to treat him with high does IV steroids, Solu-Medrol 80 mg b.i.d. for the 1st few days is appropriate, and complete the course of doxycycline as has been suggested by ID specialist. Watch the patient closely, If he gets any worse, then consider transferring him to a tertiary center such as [facility]. Procedures Date of Service Date of Service: 04/24/21
--- NOTE | 2021-04-24 11:29 | MHC.CM.PN ---
Male 20 DX Covid Patient continues to require high flow O2. Referrals sent to [facility] and [facility] w Pulmonary program. CM will follow.
[2021-04-24] MEDS: methylPREDNISolone Sod Succ 125 MG/2 ML VIAL 80 MG IVPUSH ×2 (12:54→22:46)
--- NOTE | 2021-04-24 14:00 | CA_ITS ---
Transthoracic Echocardiogram Patient (Last, First, Middle): Gabriel Rich, Gender: Male Date of : 2000 Age: 20 Procedure Date: 04/24/2021 Procedure Type: Transthoracic Echocardiogram Location: [facility] Height: 182.88 cm Weight: 128.37 kg BSA: 2.47 m2 Heart Rate: bpm BP: 131 / 67 mmHg Pneumatic Jacketer: ROBBY Yo MD: Roseanna Adame NP Adult Probation Officer: Zeyad Szymanski MD Symptoms: hypoxia, covid 19 Study Quality: Fair ECG Rhythm: Sinus Conclusions: - Essentially normal study Findings Left Ventricle Normal left ventricular size, thickness, and systolic function. The visually estimated ejection fraction is between 60-65%. Spectral Doppler is indicative of a normal filling pattern. Right Ventricle Normal right ventricular cavity size and systolic function. Atria Both atria are normal in size. Interatrial shunt cannot be excluded. Aortic Valve The aortic valve structure and function is likely normal. There is no aortic valve stenosis. There is no aortic valve regurgitation. Mitral Valve Normal mitral valve structure and function. There is trace mitral valve regurgitation. There is no mitral valve stenosis. Pulmonic Valve The pulmonic valve was not well visualized. Tricuspid Valve Likely normal tricuspid valve structure and function. There is trace tricuspid valve regurgitation. Tricuspid regurgitation envelope is inadequate for calculation of right ventricular systolic pressure. Normal right atrial pressure. Great Vessels All visible segments of the aorta are normal in size. The pulmonary artery was not well visualized. Venous The inferior vena cava is normal in size and collapses greater than 50% with inspiration. Pericardium/Pleural There is no evidence of pericardial effusion. Prior Study Comparison No prior study available for comparison. Measurements 2D Linear Measurements RVIDd: 3.37 IVSd: 0.89 0.6-0.9/0.6-1.0 cm LVIDd: 4.81 3.9-5.3/4.2-5.9 cm LVIDs: 2.81 2.0-3.6 cm LVPWd: 1.24 0.7-1.1 cm Ao Root: 2.90 2.1-3.5 cm LA Diam: 3.70 2.7-3.8/3.0-4.0 cm LV Mass: 231.44 67-162/88-224 g LVOT Diam: 2.40 3.0+(-)1.3 cm 2D Systolic Function EF 4C: 56.80 >55% EF 2C: 71.80 >55% EF BiP: 65.90 >55% Mitral Valve MV Pk E: 0.54 MV PK A: 0.42 MV Decel Time: 294.00 E/A: 1.30 E'Lateral: 16.60 E'Medial: 7.83 E/E' Med: 6.90 E/E' Lat: 3.30 LVOT LVOT Diam: 2.40 LVOT Area: 4.52 Diastolic Function MV Pk E: 0.54 MV Pk A: 0.42 E/A: 1.30 E'Medial: 7.83 E/E' Med: 6.90 E' Laterial: 16.60 E/E' Lat: 3.30 Right Ventricle TAPSE (mm): 29.00 TVS' Jones: 16.40 Tricuspid Valve RA Press: 3.00 Great Vessels Aorta Ao Root-2D: 2.90 2.0-3.7 cm Ao Asc: 2.50 2.1-3.4 cm Ao Arch: 2.60 Updated in Other Vendor System with Status of Final Zeyad Szymanski MD electronically signed on 04/24/2021 4:33:31 PM with status of Final
[2021-04-24] MEDS: Benzonatate 100 MG CAPSULE PO (17:32)
--- NOTE | 2021-04-24 17:53 | P.EN_ITS ---
Event Note Date of Service: 04/24/21 Event Note: i saw/examined pt and discussed findings and managemene with CARDIAC TECHNICIAN, and I agree with a/p by CARDIAC TECHNICIAN on this day
--- NOTE | 2021-04-24 17:53 | PM.EVENT ---
Event Note Date of Service: 04/24/21 Event Note: i saw/examined pt and discussed findings and managemene with RADIO FREQUENCY DESIGN ENGINEER, and I agree with a/p by RADIO FREQUENCY DESIGN ENGINEER on this day
[2021-04-24] MEDS: traZODone HCL 50 MG TABLET PO (22:46)
[2021-04-24] MEDS: Melatonin 3 MG TABLET 6 MG PO (22:46)
[2021-04-25] VITALS (14 sets, daily range): BP systolic 113–133; BP diastolic 51–72; PULSE 58–119; RESP 16–22; TEMP 36.4–36.8; O2SAT 90–95
[2021-04-25 06:17] LABS: VBG HCO3 23 mmol/L (22-26); VBG pCO2 35 mmHg; VBG pH 7.43 (7.32-7.43); VBG pO2 111 mmHg
[2021-04-25 06:17] LABS: Venous Blood Gas Refer to POC result
[2021-04-25] MEDS: Ascorbic Acid 500 MG TABLET 1000 MG PO ×4 (09:40→21:56)
[2021-04-25] MEDS: Cholecalciferol (Vitamin D3) 25 MCG TABLET 50 MCG PO (09:40)
[2021-04-25] MEDS: Thiamine HCL 100 MG TABLET 200 MG PO ×2 (09:40→21:55)
[2021-04-25] MEDS: Aspirin 81 MG TAB.CHEW PO (09:40)
[2021-04-25] MEDS: 0.9 % Sodium Chloride Flush 3 ML SYRINGE IVFLUSH ×3 (09:41→22:56)
[2021-04-25] MEDS: Enoxaparin Sodium 40 MG/0.4 ML SYRINGE SUBCUT ×2 (09:41→21:55)
--- NOTE | 2021-04-25 09:58 | PM.PNPUL ---
Subjective Subjective Date of Service: 04/25/21 Principal diagnosis: COVID-19 PNEUMONIA/ARDS Interval history: PATIENT IS RELATIVELY STABLE AND DOES NOT COMPLAIN OF ANY RESPIRATORY DISTRESS. STILL HAS MILD TO MODERATE INTERMITTENT COUGH, NOT MUCH CHEST DISCOMFORT. HE IS STAYING AFEBRILE, STILL REQUIRING HIGH-FLOW O2 Objective Data Labs CBC & Chem 7: 04/23/21 05:47 04/24/21 05:30 Labs: Laboratory Results - last 24 hr 04/25/21 06:10 VBG pH 7.43 VBG pCO2 35 VBG pO2 111 VBG HCO3 23 VBG O2 Saturation 98.0 VBG Base Excess 0.0 ABG Attestation: I personally reviewed and interpreted this ABG as follows: Interpretation: NORMAL ON HIGH-FLOW O2 Microbiology Microbiology Results: Microbiology 04/14/21 19:39 Blood - Subclavian Blood Culture - Final No growth after 5 days. 04/14/21 19:39 Blood - Subclavian Blood Culture - Final No growth after 5 days. Review of Systems Review of Systems Yes all other systems are reviewed and are negative Physical Exam Vital Signs: Vital Signs: Last Vital Signs Temp 98 F 04/25/21 04:00 Pulse 70 04/25/21 04:00 Resp 18 04/25/21 07:19 BP 133/61 04/25/21 04:00 Pulse Ox 93 04/25/21 04:00 Oxygen Flow Rate 3 04/14/21 18:07 Body Mass Index 38.4 Const: General: comfortable, no acute distress, alert and awake Orientation/consciousness: patient oriented x3 HENMT: Head: Yes normal to inspection General nose exam: No nasal polyps present and No nasal discharge present Face and sinus: Yes sinuses nontender Mouth: oropharynx normal Throat: Yes posterior oropharynx normal Eyes: General: appearance normal, both eyes and all related structures Neck: Neck: Yes normal visual inspection, Yes no lymphadenopathy, Yes trachea midline and Yes no JVD Thyroid: Thyroid normal Chest: Chest palpation & inspection: normal inspection of the chest, normal palpation of entire chest wall and no tenderness Resp: Other: HE HAS GOOD AERATION OF BOTH LUNGS, BREATH SOUNDS SLIGHTLY DIMINISHED OVER THE BASILAR AREAS. THERE ARE SCATTERED INSPIRATORY CREPITATIONS OVER THE LOWER PARTS OF THE CHEST. NO WHEEZES ARE HEARD, Cardio: Palpation: normal PMI Rate: regular rate Rhythm: regular rhythm Heart sounds: no gallops and no murmurs Peripheral pulses: Peripheral pulses 2+ throughout GI: Palpation (GI): Soft to palpation, nontender, No hepatosplenomegaly present and no masses Auscultation: normal bowel sounds Back/Spine/Pelvis: Thoracic/Lumbar Spine: thoracic and lumbar spine normal to inspection Skin: General skin exam: no rashes or lesions noted Neuro: General: patient oriented x3 and no focal motor deficits Cranial nerves: Yes CN's II-XII intact bilaterally Extrem: General: Yes normal to inspection, Yes no clubbing, cyanosis or edema and Yes no calf tenderness Psych: Speech and movement: Normal speech and movement present Procedures Date of Service Date of Service: 04/25/21 Assessment and Plan Assessment and plan (1) COVID-19: Status: Acute (2) Pneumonia due to 2019-nCoV: Problem details: EXTENSIVE BILATERAL, ALVEOLAR DENSITIES CONSISTENT WITH COVID 19 PNEUMONIA/PNEUMONITIS. CLINICALLY SEEM TO BE STABLE AT THIS TIME. CONTINUE THE PRESENT REGIMEN WITH SOLU-MEDROL 80 MG Q.12 HOURS, FOR THE NEXT 1 OR 2 DAYS THEN GRADUALLY REDUCE THE DOES. CONTINUE DOXYCYCLINE 100 MG B.I.D.. USE COUGHS MEDICATION ONLY ON P.R.N. BASIS Status: Acute (3) Acquired respiratory distress syndrome: Problem details: SEVERE ARDS , WITH HYPOXEMIA. CURRENTLY STABLE ON HIGH-SHAHAB 50 L/MINUTE. HE STABILIZES THIS CAN BE WEANED DOWN SLOWLY. HE MAY REQUIRE HIGH-FLOW FOR SAYS SEVERAL DAYS, BEFORE HE CAN TOLERATE NASAL CANNULA. I TALKED TO THE PATIENT AND EXPLAINED HIM IN DETAIL. HE UNDERSTANDS WELL . Status: Acute Time Spent With Patient Time: Total time spent is greater than 50% in coordination of care (as documented) at patient's floor/unit and/or counseling patient: Time with patient: 15 - 24 minutes Progress Note: Quality Stroke Does the patient have a stroke diagnosis?: No
--- NOTE | 2021-04-25 12:16 | HO.PM.IMPN ---
Subjective Subjective Date of Service: 04/25/21 Interval History: Dyspnea improved but remains on HFNC No chest pain No abd pain No fever Review of Systems Review of Systems: Yes all other systems are reviewed and are negative Physical Exam Vital Signs: Vital Signs: Last Vital Signs Temp 97.9 F 04/25/21 08:00 Pulse 90 04/25/21 08:00 Resp 20 04/25/21 11:09 BP 122/51 L 04/25/21 08:00 Pulse Ox 92 04/25/21 08:00 Oxygen Flow Rate 3 04/14/21 18:07 Body Mass Index 38.4 Gen: in no acute distress HEENT: sclera anicteric, moist mucus membranes, on HFNC 60% fiO2 @ 50 Lpm Neck: supple Lungs: clear to auscultation bilaterally Heart: regular rate and rhythm, no murmurs Abd: soft, non-tender, non-distended Ext: no edema Skin: warm/well-perfused Neuro: alert and oriented x3, no focal findings Psych: appropriate affect Objective Data Current Medications Generic Name Dose Route Start Last Admin Trade Name Leoncio PRN Reason Stop Dose Admin Acetaminophen 650 mg 04/14/21 22:14 04/16/21 21:58 Acetaminophen 325 Mg Tablet PO 650 mg Q6H PRN Administration Pain, Mild (Pain Scale 1-3) Albuterol Sulfate 2 puff 04/14/21 22:14 04/16/21 01:49 Albuterol Sulfate 90 Mcg 8 Gm Inhaler INHALE 2 puff RQ4H PRN Administration Shortness of Breath/Wheezing Ascorbic Acid 1,000 mg 04/23/21 13:00 04/25/21 09:40 Ascorbic Acid 500 Mg Tablet PO 1,000 mg QID JUSTIN Administration Aspirin 81 mg 04/24/21 09:00 04/25/21 09:40 Aspirin 81 Mg Tab.Chew PO 81 mg DAILY JUSTIN Administration Benzonatate 100 mg 04/15/21 23:07 04/24/21 17:32 Benzonatate 100 Mg Capsule PO 100 mg TID PRN Administration Cough Doxycycline Hyclate 100 mg 04/18/21 20:00 04/25/21 09:40 Doxycycline Hyclate 100 Mg Tablet PO 100 mg Q12H JUSTIN Administration Enoxaparin Sodium 40 mg 04/23/21 10:15 04/25/21 09:41 Enoxaparin Sodium 40 Mg/0.4 Ml Syringe SUBCUT 40 mg BID JUSTIN Administration Melatonin 6 mg 04/14/21 22:14 04/24/21 22:46 Melatonin 3 Mg Tablet PO 6 mg BEDTIME PRN Administration Insomnia Methylprednisolone Sodium Succinate 80 mg 04/23/21 11:15 04/24/21 22:46 Methylprednisolone Sod Succ 125 Mg/2 Ml Vial IVPUSH 80 mg Q12H JUSTIN Administration Ondansetron HCl 4 mg 04/16/21 02:28 04/16/21 02:51 Ondansetron Hcl 4 Mg/2 Ml Vial IVPUSH 4 mg Q8H PRN Administration Nausea and Vomiting Senna 17.2 mg 04/14/21 22:14 Sennosides 8.6 Mg Tablet PO BEDTIME PRN Constipation Sodium Chloride 3 ml 04/15/21 00:00 04/25/21 09:41 0.9 % Sodium Chloride Flush 3 Ml Syringe IVFLUSH 3 ml QSHIFT JUSTIN Administration Thiamine HCl 200 mg 04/23/21 21:00 04/25/21 09:40 Thiamine Hcl 100 Mg Tablet PO 200 mg BID JUSTIN Administration Trazodone HCl 50 mg 04/23/21 11:14 04/24/21 22:46 Trazodone Hcl 50 Mg Tablet PO 50 mg BEDTIME PRN Administration Insomnia Vitamin D 50 mcg 04/23/21 10:00 04/25/21 09:40 Cholecalciferol (Vitamin D3) 25 Mcg Tablet PO 50 mcg DAILY JUSTIN Administration Labs CBC & Chem 7: 04/23/21 05:47 04/24/21 05:30 Labs: Laboratory Results - last 24 hr 04/25/21 06:10 VBG pH 7.43 VBG pCO2 35 VBG pO2 111 VBG HCO3 23 VBG O2 Saturation 98.0 VBG Base Excess 0.0 Assessment and Plan (1) Acquired respiratory distress syndrome: Status: Acute (2) COVID-19: Status: Acute (3) Pneumonia due to 2019-nCoV: Status: Acute Assessment and Plan: hospital d#12 for 20yo unvaccinated M admitted for hypoxic respiratory failure due to COVID-19 pneumonia # acute hypoxic respiratory failure # COVID-19 pneumonia # viral sepsis - continue supplemental O2 via HFNC - s/p tocilizumab - changed from dexamethasone to methylprednisolone 80 mg bid + intermediate-dose LMWH - d/c doxycycline - check labs tomorrow # anxiety - CARE team consult # VTE ppx - LMWH # dispo - may qualify for LTACH Quality Stroke Does the patient have a stroke diagnosis?: No VTE Prior VTE?: No VTE Risk Level:: Medical - moderate - high VTE Device Contraindication: Treatment Not Indicated VTE Drug Contraindication: N/A - Med Ordered
[2021-04-25] MEDS: methylPREDNISolone Sod Succ 125 MG/2 ML VIAL 80 MG IVPUSH ×2 (12:47→22:55)
[2021-04-25] MEDS: traZODone HCL 50 MG TABLET PO (22:55)
[2021-04-25] MEDS: Melatonin 3 MG TABLET 6 MG PO (22:55)
[2021-04-26] VITALS (13 sets, daily range): BP systolic 130–146; BP diastolic 67–75; PULSE 59–144; RESP 18–22; TEMP 36.4–36.9; O2SAT 90–95
[2021-04-26 06:49] LABS: Hematocrit 42.2 % (42-52); Hemoglobin 14.9 g/dl (14.0-18.0); Mean Corpuscular HGB Conc 35.3 g/dl (31.0-36.0); Mean Corpuscular Hemoglobin 30.4 pg (27.0-33.0); Mean Corpuscular Volume 86.1 fL (80-98); Mean Platelet Volume 9.7 fL (9.4-12.4); Platelet Count 355 X10*3/uL (160-400); Red Cell Distribution Width 12.9 % (11.0-16.0)
[2021-04-26 06:59] LABS: Procalcitonin 0.04 ng/mL
[2021-04-26 07:06] LABS: D Dimer 1605 NG/ML
[2021-04-26 07:10] LABS: Alanine Aminotransferase 61 U/L (0-40); Albumin Level 3.5 g/dL (3.5-5.0); Alkaline Phosphatase 58 U/L (39-117); Anion Gap 14 (12-20); Aspartate Amino Transferase 14 U/L (5-37); Bilirubin Total 0.4 mg/dL (0.0-1.0); Blood Urea Nitrogen 17 mg/dL (9-16); C Reactive Protein 0.03 mg/dL (< or = 0.50); Calcium 9.1 mg/dL (8.4-10.2); Carbon Dioxide 24 mmol/L (22-29); Chloride 109 mmol/L (96-108); Creatinine Clr Calc Pharmacy 218.7; Estimated Glomerular Filt Rate > 60; Glucose Random 127 mg/dL (60-115); Lactate Dehydrogenase 395 U/L (118-273); Potassium 4.6 mmol/L (3.3-5.1); Sodium 142 mmol/L (135-145); Total Protein 5.6 g/dL (6.5-8.0)
[2021-04-26 07:27] LABS: Ferritin 609 ng/mL (20-250)
[2021-04-26] MEDS: Cholecalciferol (Vitamin D3) 25 MCG TABLET 50 MCG PO (10:31)
[2021-04-26] MEDS: Thiamine HCL 100 MG TABLET 200 MG PO ×2 (10:32→22:37)
[2021-04-26] MEDS: Aspirin 81 MG TAB.CHEW PO (10:33)
[2021-04-26] MEDS: Ascorbic Acid 500 MG TABLET 1000 MG PO ×4 (10:33→22:37)
[2021-04-26] MEDS: methylPREDNISolone Sod Succ 125 MG/2 ML VIAL 80 MG IVPUSH ×2 (10:33→22:37)
[2021-04-26] MEDS: Enoxaparin Sodium 40 MG/0.4 ML SYRINGE SUBCUT ×2 (10:33→22:38)
[2021-04-26] MEDS: 0.9 % Sodium Chloride Flush 3 ML SYRINGE IVFLUSH ×3 (10:34→22:38)
--- NOTE | 2021-04-26 12:17 | HO.PM.IMPN ---
Subjective Subjective Date of Service: 04/26/21 Interval History: Feels well; no pain. Bored. SaO2 90-91% on HFNC, 60% fiO2 @ 45 Lpm. Inflammatory markers improved. Review of Systems Review of Systems: Yes all other systems are reviewed and are negative Physical Exam Vital Signs: Vital Signs: Last Vital Signs Temp 97.5 F 04/26/21 08:00 Pulse 88 04/26/21 08:00 Resp 20 04/26/21 11:37 BP 130/67 04/26/21 08:00 Pulse Ox 93 04/26/21 08:00 Body Mass Index 38.4 Gen: in no acute distress HEENT: sclera anicteric, moist mucus membranes, on HFNC 60% fiO2 @ 45 Lpm Neck: supple Lungs: clear to auscultation bilaterally Heart: regular rate and rhythm, no murmurs Abd: soft, obese, non-tender, non-distended Ext: no edema Skin: warm/well-perfused Neuro: alert and oriented x3, no focal findings Psych: appropriate affect Objective Data Current Medications Generic Name Dose Route Start Last Admin Trade Name Freq PRN Reason Stop Dose Admin Acetaminophen 650 mg 04/14/21 22:14 04/16/21 21:58 Acetaminophen 325 Mg Tablet PO 650 mg Q6H PRN Administration Pain, Mild (Pain Scale 1-3) Albuterol Sulfate 2 puff 04/14/21 22:14 04/16/21 01:49 Albuterol Sulfate 90 Mcg 8 Gm Inhaler INHALE 2 puff RQ4H PRN Administration Shortness of Breath/Wheezing Ascorbic Acid 1,000 mg 04/23/21 13:00 04/26/21 10:33 Ascorbic Acid 500 Mg Tablet PO 1,000 mg QID JUSTIN Administration Aspirin 81 mg 04/24/21 09:00 04/26/21 10:33 Aspirin 81 Mg Tab.Chew PO 81 mg DAILY JUSTIN Administration Benzonatate 100 mg 04/15/21 23:07 04/24/21 17:32 Benzonatate 100 Mg Capsule PO 100 mg TID PRN Administration Cough Enoxaparin Sodium 40 mg 04/23/21 10:15 04/26/21 10:33 Enoxaparin Sodium 40 Mg/0.4 Ml Syringe SUBCUT 40 mg BID JUSTIN Administration Melatonin 6 mg 04/14/21 22:14 04/25/21 22:55 Melatonin 3 Mg Tablet PO 6 mg BEDTIME PRN Administration Insomnia Methylprednisolone Sodium Succinate 80 mg 04/23/21 11:15 04/26/21 10:33 Methylprednisolone Sod Succ 125 Mg/2 Ml Vial IVPUSH 80 mg Q12H JUSTIN Administration Ondansetron HCl 4 mg 04/16/21 02:28 04/16/21 02:51 Ondansetron Hcl 4 Mg/2 Ml Vial IVPUSH 4 mg Q8H PRN Administration Nausea and Vomiting Senna 17.2 mg 04/14/21 22:14 Sennosides 8.6 Mg Tablet PO BEDTIME PRN Constipation Sodium Chloride 3 ml 04/15/21 00:00 04/26/21 10:34 0.9 % Sodium Chloride Flush 3 Ml Syringe IVFLUSH 3 ml QSHIFT JUSTIN Administration Thiamine HCl 200 mg 04/23/21 21:00 04/26/21 10:32 Thiamine Hcl 100 Mg Tablet PO 200 mg BID JUSTIN Administration Trazodone HCl 50 mg 04/23/21 11:14 04/25/21 22:55 Trazodone Hcl 50 Mg Tablet PO 50 mg BEDTIME PRN Administration Insomnia Vitamin D 50 mcg 04/23/21 10:00 04/26/21 10:31 Cholecalciferol (Vitamin D3) 25 Mcg Tablet PO 50 mcg DAILY JUSTIN Administration Labs CBC & Chem 7: 04/26/21 05:31 04/26/21 05:31 Labs: Laboratory Results - last 24 hr 04/26/21 04/26/21 04/26/21 05:31 05:31 05:31 MCV 86.1 MCH 30.4 MCHC 35.3 RDW 12.9 Plt Count 355 MPV 9.7 Absolute Nucleated RBC 0.000 Nucleated RBC % (auto) 0.0 D-Dimer 1605 Anion Gap 14 Estim Creat Clear Calc 218.7 Estimated GFR > 60 Random Glucose 127 H Calcium 9.1 Ferritin 609 H Total Bilirubin 0.4 AST 14 D ALT 61 H Alkaline Phosphatase 58 Lactate Dehydrogenase 395 H C-Reactive Protein 0.03 Total Protein 5.6 L Albumin 3.5 Procalcitonin 04/26/21 05:31 MCV MCH MCHC RDW Plt Count MPV Absolute Nucleated RBC Nucleated RBC % (auto) D-Dimer Anion Gap Estim Creat Clear Calc Estimated GFR Random Glucose Calcium Ferritin Total Bilirubin AST ALT Alkaline Phosphatase Lactate Dehydrogenase C-Reactive Protein Total Protein Albumin Procalcitonin 0.04 Assessment and Plan (1) Acquired respiratory distress syndrome: Status: Acute (2) COVID-19: Status: Acute (3) Pneumonia due to 2019-nCoV: Status: Acute Assessment and Plan: hospital d#13 for 20yo unvaccinated M admitted for hypoxic respiratory failure due to COVID-19 pneumonia # acute hypoxic respiratory failure # COVID-19 pneumonia # viral sepsis - continue supplemental O2 via HFNC and wean as tolerated - s/p tocilizumab - changed from dexamethasone to methylprednisolone 80 mg bid + intermediate-dose LMWH - d/c doxycycline - inflammatory markers checked today and all improved # anxiety - CARE team consult # VTE ppx - LMWH # dispo - may qualify for LTACH- CM working on this Quality Stroke Does the patient have a stroke diagnosis?: No VTE Prior VTE?: No VTE Risk Level:: Medical - moderate - high VTE Device Contraindication: Treatment Not Indicated VTE Drug Contraindication: N/A - Med Ordered
[2021-04-26] MEDS: traZODone HCL 50 MG TABLET PO (22:37)
[2021-04-26] MEDS: Melatonin 3 MG TABLET 6 MG PO (22:37)
[2021-04-27] VITALS (12 sets, daily range): BP systolic 104–140; BP diastolic 58–78; PULSE 59–114; RESP 15–24; TEMP 36.3–37.3; O2SAT 90–94
--- NOTE | 2021-04-27 08:24 | MHC.CARE ---
CARE Team attempted to call Pts room phone to provide support. Pt did not answer. CARE Team communicated with staff who reported they will move Pts phone near him. CARE Team will follow up later.
[2021-04-27] MEDS: Thiamine HCL 100 MG TABLET 200 MG PO ×2 (09:27→21:22)
[2021-04-27] MEDS: Cholecalciferol (Vitamin D3) 25 MCG TABLET 50 MCG PO (09:27)
[2021-04-27] MEDS: Ascorbic Acid 500 MG TABLET 1000 MG PO ×4 (09:28→21:22)
[2021-04-27] MEDS: Aspirin 81 MG TAB.CHEW PO (09:28)
[2021-04-27] MEDS: Enoxaparin Sodium 40 MG/0.4 ML SYRINGE SUBCUT ×2 (09:28→21:21)
[2021-04-27] MEDS: 0.9 % Sodium Chloride Flush 3 ML SYRINGE IVFLUSH ×3 (09:28→23:35)
--- NOTE | 2021-04-27 09:34 | HO.PM.IMPN ---
Subjective Subjective Date of Service: 04/27/21 Interval History: F/u on acute hypoxic resp failure d/t covid 19. More comoftable, less anxiety Review of Systems No fever SOB Physical Exam Vital Signs: Vital Signs: Last Vital Signs Temp 98 F 04/27/21 00:00 Pulse 69 04/27/21 04:00 Resp 20 04/27/21 08:04 BP 134/60 04/27/21 00:00 Pulse Ox 94 04/27/21 04:00 Oxygen Flow Rate 3 04/14/21 18:07 Body Mass Index 38.4 Gen: in no acute distress HEENT: sclera anicteric, moist mucus membranes, on HFNC 60% fiO2 @ 45 Lpm Neck: supple Lungs: clear to auscultation bilaterally Heart: regular rate and rhythm, no murmurs Abd: soft, obese, non-tender, non-distended Ext: no edema Skin: warm/well-perfused Neuro: alert and oriented x3, no focal findings Psych: appropriate affect Objective Data Current Medications Generic Name Dose Route Start Last Admin Trade Name Leoncio PRN Reason Stop Dose Admin Acetaminophen 650 mg 04/14/21 22:14 04/16/21 21:58 Acetaminophen 325 Mg Tablet PO 650 mg Q6H PRN Administration Pain, Mild (Pain Scale 1-3) Albuterol Sulfate 2 puff 04/14/21 22:14 04/16/21 01:49 Albuterol Sulfate 90 Mcg 8 Gm Inhaler INHALE 2 puff RQ4H PRN Administration Shortness of Breath/Wheezing Ascorbic Acid 1,000 mg 04/23/21 13:00 04/26/21 22:37 Ascorbic Acid 500 Mg Tablet PO 1,000 mg QID JUSTIN Administration Aspirin 81 mg 04/24/21 09:00 04/26/21 10:33 Aspirin 81 Mg Tab.Chew PO 81 mg DAILY JUSTIN Administration Benzonatate 100 mg 04/15/21 23:07 04/24/21 17:32 Benzonatate 100 Mg Capsule PO 100 mg TID PRN Administration Cough Enoxaparin Sodium 40 mg 04/23/21 10:15 04/26/21 22:38 Enoxaparin Sodium 40 Mg/0.4 Ml Syringe SUBCUT 40 mg BID JUSTIN Administration Melatonin 6 mg 04/14/21 22:14 04/26/21 22:37 Melatonin 3 Mg Tablet PO 6 mg BEDTIME PRN Administration Insomnia Methylprednisolone Sodium Succinate 80 mg 04/23/21 11:15 04/26/21 22:37 Methylprednisolone Sod Succ 125 Mg/2 Ml Vial IVPUSH 80 mg Q12H JUSTIN Administration Ondansetron HCl 4 mg 04/16/21 02:28 04/16/21 02:51 Ondansetron Hcl 4 Mg/2 Ml Vial IVPUSH 4 mg Q8H PRN Administration Nausea and Vomiting Senna 17.2 mg 04/14/21 22:14 Sennosides 8.6 Mg Tablet PO BEDTIME PRN Constipation Sodium Chloride 3 ml 04/15/21 00:00 04/26/21 22:38 0.9 % Sodium Chloride Flush 3 Ml Syringe IVFLUSH 3 ml QSHIFT JUSTIN Administration Thiamine HCl 200 mg 04/23/21 21:00 04/26/21 22:37 Thiamine Hcl 100 Mg Tablet PO 200 mg BID JUSTIN Administration Trazodone HCl 50 mg 04/23/21 11:14 04/26/21 22:37 Trazodone Hcl 50 Mg Tablet PO 50 mg BEDTIME PRN Administration Insomnia Vitamin D 50 mcg 04/23/21 10:00 04/26/21 10:31 Cholecalciferol (Vitamin D3) 25 Mcg Tablet PO 50 mcg DAILY JUSTIN Administration Labs CBC & Chem 7: 04/26/21 05:31 04/26/21 05:31 Assessment and Plan (1) Acquired respiratory distress syndrome: Status: Acute (2) COVID-19: Status: Acute (3) Pneumonia due to 2019-nCoV: Status: Acute Assessment and Plan: hospital d#13 for 20yo unvaccinated M admitted for hypoxic respiratory failure due to COVID-19 pneumonia # acute hypoxic respiratory failure # COVID-19 pneumonia # viral sepsis - continue supplemental O2 via HFNC and wean as tolerated - s/p tocilizumab - changed from dexamethasone to methylprednisolone 80 mg bid + intermediate-dose LMWH , decrease steroid to 60 bid tomorrow - doxycycline stopped - inflammatory markers checked 04/26 and all improved # anxiety - CARE team consult # VTE ppx - LMWH # dispo - may qualify for LTACH- CM working on this Quality Stroke Does the patient have a stroke diagnosis?: No VTE Prior VTE?: No VTE Risk Level:: Medical - moderate - high VTE Device Contraindication: Treatment Not Indicated VTE Drug Contraindication: N/A - Med Ordered
[2021-04-27] MEDS: methylPREDNISolone Sod Succ 125 MG/2 ML VIAL 80 MG IVPUSH ×2 (13:10→23:34)
[2021-04-27] MEDS: traZODone HCL 50 MG TABLET PO (21:22)
[2021-04-27] MEDS: Melatonin 3 MG TABLET 6 MG PO (21:22)
[2021-04-28 04:00] VITALS: BP 129/52; PULSE 55; RESP 16; TEMP 36.2; O2SAT 91
[2021-04-28 08:00] VITALS: BP 167/72; PULSE 109; RESP 20; TEMP 35.9; O2SAT 90
[2021-04-28] MEDS: Aspirin 81 MG TAB.CHEW PO (10:00)
[2021-04-28] MEDS: Cholecalciferol (Vitamin D3) 25 MCG TABLET 50 MCG PO (10:00)
[2021-04-28] MEDS: Ascorbic Acid 500 MG TABLET 1000 MG PO ×4 (10:00→21:58)
[2021-04-28] MEDS: Enoxaparin Sodium 40 MG/0.4 ML SYRINGE SUBCUT ×2 (10:01→21:58)
[2021-04-28] MEDS: methylPREDNISolone Sod Succ 125 MG/2 ML VIAL 80 MG IVPUSH ×2 (10:01→22:01)
[2021-04-28] MEDS: Thiamine HCL 100 MG TABLET 200 MG PO ×2 (10:01→21:58)
[2021-04-28] MEDS: 0.9 % Sodium Chloride Flush 3 ML SYRINGE IVFLUSH ×3 (10:02→21:59)
[2021-04-28 11:38] VITALS: BP 134/71; PULSE 117; RESP 20; TEMP 36.8; O2SAT 89
--- NOTE | 2021-04-28 11:44 | P.PNIM_ITS ---
Progress Note: A&P (1) Acquired respiratory distress syndrome: Status: Acute <Roseanna Adame NP - Last Filed: 04/28/21 11:49> Assessment and Plan: 20yo unvaccinated man admitted for hypoxic respiratory failure due to COVID-19 pneumonia # acute hypoxic respiratory failure # COVID-19 pneumonia # viral sepsis - continue supplemental O2 via HFNC and wean as tolerated - s/p tocilizumab - changed from dexamethasone to methylprednisolone 80 mg bid + intermediate-dose LMWH , decrease steroid to 60 bid tomorrow - doxycycline stopped - inflammatory markers checked 04/26 and all improved # anxiety - CARE team consult # VTE ppx - LMWH # dispo - may qualify for LTACH- CM working on this Attending Dr. Patel <Roseanna Adame NP - Last Filed: 04/28/21 11:49> Subjective Subjective Date of Service: 04/28/21 <Roseanna Adame NP - Last Filed: 04/28/21 11:49> 04/28/21 <Neville Patel MD - Last Filed: 04/28/21 16:53> Interval History: Follow up covid 19 Still hypoxic sitting up in bed <Roseanna Adame NP - Last Filed: 04/28/21 11:49> Physical Exam Vital Signs: Vital Signs: Last Vital Signs Temp 98.3 F 04/28/21 11:38 Pulse 117 H 04/28/21 11:38 Resp 20 04/28/21 11:38 BP 134/71 04/28/21 11:38 Pulse Ox 89 L 04/28/21 11:38 Oxygen Flow Rate 3 04/14/21 18:07 Body Mass Index 38.4 <Roseanna Adame NP - Last Filed: 04/28/21 11:49> Appearing in no acute distress lungs normal expansion heart regular rate rhythm, clear S1, S2 positive bowel sounds, abdomen is soft, nontender neuro patient is alert x3, no focal deficits <Roseanna Adame NP - Last Filed: 04/28/21 11:49> Objective Data Current Medications Generic Name Dose Route Start Last Admin Trade Name Freq PRN Reason Stop Dose Admin Acetaminophen 650 mg 04/14/21 22:14 04/16/21 21:58 Acetaminophen 325 Mg Tablet PO 650 mg Q6H PRN Administration Pain, Mild (Pain Scale 1-3) Albuterol Sulfate 2 puff 04/14/21 22:14 04/16/21 01:49 Albuterol Sulfate 90 Mcg 8 Gm Inhaler INHALE 2 puff RQ4H PRN Administration Shortness of Breath/Wheezing Ascorbic Acid 1,000 mg 04/23/21 13:00 04/28/21 10:00 Ascorbic Acid 500 Mg Tablet PO 1,000 mg QID JUSTIN Administration Aspirin 81 mg 04/24/21 09:00 04/28/21 10:00 Aspirin 81 Mg Tab.Chew PO 81 mg DAILY JUSTIN Administration Benzonatate 100 mg 04/15/21 23:07 04/24/21 17:32 Benzonatate 100 Mg Capsule PO 100 mg TID PRN Administration Cough Enoxaparin Sodium 40 mg 04/23/21 10:15 04/28/21 10:01 Enoxaparin Sodium 40 Mg/0.4 Ml Syringe SUBCUT 40 mg BID JUSTIN Administration Melatonin 6 mg 04/14/21 22:14 04/27/21 21:22 Melatonin 3 Mg Tablet PO 6 mg BEDTIME PRN Administration Insomnia Methylprednisolone Sodium Succinate 80 mg 04/23/21 11:15 04/28/21 10:01 Methylprednisolone Sod Succ 125 Mg/2 Ml Vial IVPUSH 80 mg Q12H JUSTIN Administration Ondansetron HCl 4 mg 04/16/21 02:28 04/16/21 02:51 Ondansetron Hcl 4 Mg/2 Ml Vial IVPUSH 4 mg Q8H PRN Administration Nausea and Vomiting Senna 17.2 mg 04/14/21 22:14 Sennosides 8.6 Mg Tablet PO BEDTIME PRN Constipation Sodium Chloride 3 ml 04/15/21 00:00 04/28/21 10:02 0.9 % Sodium Chloride Flush 3 Ml Syringe IVFLUSH 3 ml QSHIFT JUSTIN Administration Thiamine HCl 200 mg 04/23/21 21:00 04/28/21 10:01 Thiamine Hcl 100 Mg Tablet PO 200 mg BID JUSTIN Administration Trazodone HCl 50 mg 04/23/21 11:14 04/27/21 21:22 Trazodone Hcl 50 Mg Tablet PO 50 mg BEDTIME PRN Administration Insomnia Vitamin D 50 mcg 04/23/21 10:00 04/28/21 10:00 Cholecalciferol (Vitamin D3) 25 Mcg Tablet PO 50 mcg DAILY JUSTIN Administration <Roseanna Adame NP - Last Filed: 04/28/21 11:49> Labs CBC & Chem 7: : 04/26/21 05:31 04/26/21 05:31 <Roseanna Adame NP - Last Filed: 04/28/21 11:49> Microbiology Microbiology Results: Microbiology 04/14/21 19:39 Blood - Subclavian Blood Culture - Final No growth after 5 days. 04/14/21 19:39 Blood - Subclavian Blood Culture - Final No growth after 5 days. <Roseanna Adame NP - Last Filed: 04/28/21 11:49> Quality Stroke Does the patient have a stroke diagnosis?: No <Roseanna Adame NP - Last Filed: 04/28/21 11:49> VTE Prior VTE?: No <Roseanna Adame NP - Last Filed: 04/28/21 11:49> VTE Risk Level:: Medical - moderate - high <Roseanna Adame NP - Last Filed: 04/28/21 1 1:49> VTE Device Contraindication: Treatment Not Indicated <Roseanna Adame NP - Last Filed: 04/28/21 11:49> VTE Drug Contraindication: N/A - Med Ordered <Roseanna Adame NP - Last Filed: 04/28/21 11:49>
--- NOTE | 2021-04-28 13:50 | MHC.CARE ---
[id number] ? Contacted patient via his room phone after 2 prior attempts in the morning to contact him.? Pt was referred to the CARE Team to consult due to elevated anxiety.? Pt reports no hx of mental health diagnosis or baseline anxiety.? Pt does not nor has he been seeing a counselor.? Pt reports no anxiety at present and has not experienced it for approximately a week by his account. Pt reports not being certain what the cause of the anxiety is but suggests it is ?probably because I just want to get out of here?.?
[2021-04-28 15:21] VITALS: BP 120/70; PULSE 110; RESP 18; TEMP 37.3; O2SAT 92
[2021-04-28 19:57] VITALS: BP 132/68; PULSE 110; RESP 18; TEMP 37.3; O2SAT 92
[2021-04-28] MEDS: Melatonin 3 MG TABLET 6 MG PO (21:58)
[2021-04-28] MEDS: traZODone HCL 50 MG TABLET PO (21:58)
[2021-04-29] VITALS: BP 128/74; PULSE 94; RESP 18; TEMP 36.6; O2SAT 92
[2021-04-29 03:43] VITALS: BP 109/58; PULSE 67; RESP 19; TEMP 37; O2SAT 90
[2021-04-29 06:00] LABS: Hemoglobin 14.9 g/dl (14.0-18.0); Mean Corpuscular HGB Conc 34.7 g/dl (31.0-36.0); Mean Corpuscular Hemoglobin 30.1 pg (27.0-33.0); Mean Corpuscular Volume 86.9 fL (80-98); Mean Platelet Volume 9.8 fL (9.4-12.4); Platelet Count 313 X10*3/uL (160-400); Red Blood Count 4.95 X10*6/uL (4.60-5.80); Red Cell Distribution Width 13.2 % (11.0-16.0); White Blood Count 15.4 X10*3/uL (4.8-10.8)
[2021-04-29 06:22] LABS: Anion Gap 15 (12-20); Blood Urea Nitrogen 18 mg/dL (9-16); Calcium 9.1 mg/dL (8.4-10.2); Carbon Dioxide 23 mmol/L (22-29); Chloride 108 mmol/L (96-108); Creatinine Clr Calc Pharmacy 241.5; Estimated Glomerular Filt Rate > 60; Glucose Random 131 mg/dL (60-115); Potassium 4.7 mmol/L (3.3-5.1); Sodium 141 mmol/L (135-145)
--- NOTE | 2021-04-29 08:24 | MHC.CM.PN ---
ref has been made to [facility], today i am following up ke[facility] to see where we stand with them offering patient a bed. cm to cont. to follow.
[2021-04-29 08:41] VITALS: BP 127/74; PULSE 89; RESP 20; TEMP 36.2; O2SAT 89
[2021-04-29] MEDS: Enoxaparin Sodium 40 MG/0.4 ML SYRINGE SUBCUT ×2 (09:13→22:06)
[2021-04-29] MEDS: methylPREDNISolone Sod Succ 40 MG/ML VIAL IVPUSH (09:13)
[2021-04-29] MEDS: 0.9 % Sodium Chloride Flush 3 ML SYRINGE IVFLUSH ×3 (09:13→22:06)
[2021-04-29] MEDS: Ascorbic Acid 500 MG TABLET 1000 MG PO ×4 (09:14→22:05)
[2021-04-29] MEDS: Thiamine HCL 100 MG TABLET 200 MG PO ×2 (09:14→22:05)
[2021-04-29] MEDS: Cholecalciferol (Vitamin D3) 25 MCG TABLET 50 MCG PO (09:14)
[2021-04-29] MEDS: Aspirin 81 MG TAB.CHEW PO (09:14)
--- NOTE | 2021-04-29 09:37 | P.PNPL_ITS ---
Subjective Subjective Date of Service: 04/29/21 Principal diagnosis: COVID-19 PNEUMONIA/ARDS Interval history: The patient was seen on exam. Overall he feels well. He is wearing a Ventimask saturating in the high 80s low 90s. Overall he denies any coughing or any congestion of the chest. Denies any fevers or chills. His white count is elevated but going to try to decrease his Solu-Medrol dose. In the meantime the patient was instructed how to perform breathing exercises in the room to improve lung capacity. Hopefully can be transitioned over to a pulmonary rehabilitation soon. Objective Data Labs CBC & Chem 7: 04/29/21 05:23 04/29/21 05:23 Labs: Laboratory Results - last 24 hr 04/29/21 04/29/21 05:23 05:23 WBC 15.4 H RBC 4.95 Hgb 14.9 Hct 43.0 MCV 86.9 MCH 30.1 MCHC 34.7 RDW 13.2 Plt Count 313 MPV 9.8 Absolute Nucleated RBC 0.000 Nucleated RBC % (auto) 0.0 Sodium 141 Potassium 4.7 Chloride 108 Carbon Dioxide 23 Anion Gap 15 BUN 18 H Creatinine 0.67 Estim Creat Clear Calc 241.5 Estimated GFR > 60 Random Glucose 131 H Calcium 9.1 Microbiology Microbiology Results: Microbiology 04/14/21 19:39 Blood - Subclavian Blood Culture - Final No growth after 5 days. 04/14/21 19:39 Blood - Subclavian Blood Culture - Final No growth after 5 days. Review of Systems Review of Systems Yes all other systems are reviewed and are negative Constitutional: Reports as per HPI, Reports no additional constitutional complaints, Reports body ache(s), Reports chills and Reports fever(s) Eyes: Reports as per HPI and Reports no additional eye complaints Reports system reviewed and no additional complaints, except as documented and Reports as per HPI Cardiovascular: Reports as per HPI, Reports no additional cardiovascular complaints and Reports dyspnea Respiratory: Reports as per HPI, Reports no additional respiratory complaints and Reports dyspnea Gastrointestinal: Reports as per HPI and Reports no additional gastrointestinal complaints Musculoskeletal: Reports no additional musculoskeletal complaints and Reports as per HPI Skin/Breast: Reports system reviewed and no additional complaints, except as docu and Reports as per HPI Physical Exam Vital Signs: Vital Signs: Last Vital Signs Temp 97.2 F 04/29/21 08:41 Pulse 89 04/29/21 08:41 Resp 20 04/29/21 08:41 BP 127/74 04/29/21 08:41 Pulse Ox 89 L 04/29/21 08:41 Oxygen Flow Rate 3 04/14/21 18:07 Body Mass Index 38.4 Const: General: alert Neck: Neck: Yes normal visual inspection, Yes full ROM and Yes no lymphaden opathy Chest: Chest palpation & inspection: normal inspection of the chest Resp: Auscultation: diminished lung sounds Cardio: Rate: regular rate Rhythm: regular rhythm Heart sounds: S1 normal heart sound present and S2 normal heart sound present GI: Palpation (GI): Soft to palpation and nontender Auscultation: normal bowel sounds Skin: General skin exam: rashes and/or lesions noted Procedures Date of Service Date of Service: 04/29/21 Assessment and Plan Assessment and plan (1) COVID-19: Status: Acute (2) Acquired respiratory distress syndrome: Problem details: SEVERE ARDS , WITH HYPOXEMIA. Status: Acute (3) Pneumonia due to 2019-nCoV: Problem details: EXTENSIVE BILATERAL, ALVEOLAR DENSITIES CONSISTENT WITH COVID 19 Status: Acute Assessment and Plan: Change to PO prednisone Monitor WBC, difficult to follow procalcitonin od CRP after IL6 inhibitor Breathing exercises Would benefit from pulmonary rehab Time Spent With Patient Time: Total time spent is greater than 50% in coordination of care (as documented) at patient's floor/unit and/or counseling patient: Time with patient: 25 - 35 minutes Progress Note: Quality Stroke Does the patient have a stroke diagnosis?: No
--- NOTE | 2021-04-29 10:07 | P.PNIM_ITS ---
Progress Note: A&P (1) Acquired respiratory distress syndrome: Status: Acute Assessment and Plan: 20yo unvaccinated man admitted for hypoxic respiratory failure due to COVID-19 pneumonia # acute hypoxic respiratory failure # COVID-19 pneumonia # viral sepsis CXR today mildly improved from 04/24/21 - weaned off high flow, now on venti at 45% - s/p tocilizumab - stop methylprednisolone 80 mg bid and change to prednisone 40mg daily + intermediate-dose LMWH - doxycycline stopped - inflammatory markers checked 04/26 and all improved # anxiety - CARE team consult # VTE ppx - LMWH # dispo - may qualify for LTACH- CM working on this. [facility] not accepting covid [address] Saucedo Subjective Subjective Date of Service: 04/29/21 Interval History: Follow up covid 19 doing better today appetite good sitting upo in bed Physical Exam Vital Signs: Vital Signs: Last Vital Signs Temp 97.2 F 04/29/21 08:41 Pulse 89 04/29/21 08:41 Resp 20 04/29/21 08:41 BP 127/74 04/29/21 08:41 Pulse Ox 89 L 04/29/21 08:41 Oxygen Flow Rate 3 04/14/21 18:07 Body Mass Index 38.4 Appearing in no acute distress lung sounds are clear to auscultation heart regular rate rhythm, clear S1, S2 positive bowel sounds, abdomen is soft, nontender neuro patient is alert x3, no focal deficits Objective Data Current Medications Generic Name Dose Route Start Last Admin Trade Name Freq PRN Reason Stop Dose Admin Acetaminophen 650 mg 04/14/21 22:14 04/16/21 21:58 Acetaminophen 325 Mg Tablet PO 650 mg Q6H PRN Administration Pain, Mild (Pain Scale 1-3) Albuterol Sulfate 2 puff 04/14/21 22:14 04/16/21 01:49 Albuterol Sulfate 90 Mcg 8 Gm Inhaler INHALE 2 puff RQ4H PRN Administration Shortness of Breath/Wheezing Ascorbic Acid 1,000 mg 04/23/21 13:00 04/29/21 09:14 Ascorbic Acid 500 Mg Tablet PO 1,000 mg QID JUSTIN Administration Aspirin 81 mg 04/24/21 09:00 04/29/21 09:14 Aspirin 81 Mg Tab.Chew PO 81 mg DAILY JUSTIN Administration Benzonatate 100 mg 04/15/21 23:07 04/24/21 17:32 Benzonatate 100 Mg Capsule PO 100 mg TID PRN Administration Cough Enoxaparin Sodium 40 mg 04/23/21 10:15 04/29/21 09:13 Enoxaparin Sodium 40 Mg/0.4 Ml Syringe SUBCUT 40 mg BID JUSTIN Administration Melatonin 6 mg 04/14/21 22:14 04/28/21 21:58 Melatonin 3 Mg Tablet PO 6 mg BEDTIME PRN Administration Insomnia Ondansetron HCl 4 mg 04/16/21 02:28 04/16/21 02:51 Ondansetron Hcl 4 Mg/2 Ml Vial IVPUSH 4 mg Q8H PRN Administration Nausea and Vomiting Prednisone 40 mg 04/30/21 09:00 Prednisone 20 Mg Tablet PO DAILY [facility] Senna 17.2 mg 04/14/21 22:14 Sennosides 8.6 Mg Tablet PO BEDTIME PRN Constipation Sodium Chloride 3 ml 04/15/21 00:00 04/29/21 09:13 0.9 % Sodium Chloride Flush 3 Ml Syringe IVFLUSH 3 ml QSHIFT [facility] Administration Thiamine HCl 200 mg 04/23/21 21:00 04/29/21 09:14 Thiamine Hcl 100 Mg Tablet PO 200 mg BID JUSTIN Administration Trazodone HCl 50 mg 04/23/21 11:14 04/28/21 21:58 Trazodone Hcl 50 Mg Tablet PO 50 mg BEDTIME PRN Administration Insomnia Vitamin D 50 mcg 04/23/21 10:00 04/29/21 09:14 Cholecalciferol (Vitamin D3) 25 Mcg Tablet PO 50 mcg DAILY JUSTIN Administration Labs CBC & Chem 7: 04/29/21 05:23 04/29/21 05:23 Labs: Laboratory Results - last 24 hr 04/29/21 04/29/21 05:23 05:23 MCV 86.9 MCH 30.1 MCHC 34.7 RDW 13.2 Plt Count 313 MPV 9.8 Absolute Nucleated RBC 0.000 Nucleated RBC % (auto) 0.0 Anion Gap 15 Estim Creat Clear Calc 241.5 Estimated GFR > 60 Random Glucose 131 H Calcium 9.1 Microbiology Microbiology Results: Microbiology 04/14/21 19:39 Blood - Subclavian Blood Culture - Final No growth after 5 days. 04/14/21 19:39 Blood - Subclavian Blood Culture - Final No growth after 5 days. Quality Stroke Does the patient have a stroke diagnosis?: No VTE Prior VTE?: No VTE Risk Level:: Medical - moderate - high VTE Device Contraindication: Treatment Not Indicated VTE Drug Contraindication: N/A - Med Ordered
[2021-04-29 12:00] VITALS: BP 132/68; PULSE 124; RESP 22; TEMP 36.1; O2SAT 91
[2021-04-29 13:27] LABS: COVID-19 Test Negative (Negative); IDNOW Serial# 9DD0AD1C
[2021-04-29 15:45] VITALS: BP 109/57; PULSE 104; RESP 18; TEMP 36.7; O2SAT 96
[2021-04-29 19:53] VITALS: BP 133/74; PULSE 111; RESP 18; TEMP 36.7; O2SAT 94
[2021-04-29] MEDS: traZODone HCL 50 MG TABLET PO (22:05)
[2021-04-29] MEDS: Melatonin 3 MG TABLET 6 MG PO (22:05)
[2021-04-30] VITALS: BP 131/71; PULSE 98; RESP 19; TEMP 36.6; O2SAT 95
[2021-04-30 04:00] VITALS: BP 129/72; PULSE 94; RESP 20; TEMP 36.6; O2SAT 98
[2021-04-30 08:00] VITALS: BP 116/70; PULSE 100; RESP 23; TEMP 36.2; O2SAT 90
[2021-04-30] MEDS: 0.9 % Sodium Chloride Flush 3 ML SYRINGE IVFLUSH ×3 (09:25→23:00)
[2021-04-30] MEDS: Enoxaparin Sodium 40 MG/0.4 ML SYRINGE SUBCUT (09:25)
[2021-04-30] MEDS: Aspirin 81 MG TAB.CHEW PO (09:26)
[2021-04-30] MEDS: Cholecalciferol (Vitamin D3) 25 MCG TABLET 50 MCG PO (09:26)
[2021-04-30] MEDS: predniSONE 20 MG TABLET 40 MG PO (09:26)
[2021-04-30] MEDS: Thiamine HCL 100 MG TABLET 200 MG PO (09:26)
[2021-04-30] MEDS: Ascorbic Acid 500 MG TABLET 1000 MG PO (09:26)
[2021-04-30 11:31] VITALS: BP 121/64; PULSE 115; RESP 25; TEMP 36.4; O2SAT 92
--- NOTE | 2021-04-30 12:16 | P.PNIM_ITS ---
Progress Note: A&P (1) Acquired respiratory distress syndrome: Status: Acute Assessment and Plan: 20 yo unvaccinated man admitted for hypoxic respiratory failure due to COVID-19 pneumonia # acute hypoxic respiratory failure # COVID-19 pneumonia (ARDS) # viral sepsis CXR today mildly improved from 04/24/21 - weaned off high flow, now on venti mask - s/p tocilizumab - stop methylprednisolone 80 mg bid and change to prednisone 40mg daily, will start taper, intermediate-dose LMWH change to daily - doxycycline stopped - inflammatory markers checked 04/26 and all improved - still requiring high oxygen amounts and will do well in LTAC or pulm rehab to recover # anxiety - CARE team consult # VTE ppx - LMWH # dispo - may qualify for LTACH- working on this. [facility] not accepting covid [address] Saucedo Subjective Subjective Date of Service: 04/30/21 Interval History: follow up covid 19 doing well on venti mask now sitting up in bed Physical Exam Vital Signs: Vital Signs: Last Vital Signs Temp 97.5 F 04/30/21 11:31 Pulse 115 H 04/30/21 11:31 Resp 25 H 04/30/21 11:31 BP 121/64 04/30/21 11:31 Pulse Ox 92 04/30/21 11:31 Oxygen Flow Rate 3 04/14/21 18:07 Body Mass Index 38.4 Appearing in no acute distress lung sounds are clear to auscultation heart regular rate rhythm, clear S1, S2 positive bowel sounds, abdomen is soft, nontender neuro patient is alert x3, no focal deficits Objective Data Current Medications Generic Name Dose Route Start Last Admin Trade Name Freq PRN Reason Stop Dose Admin Acetaminophen 650 mg 04/14/21 22:14 04/16/21 21:58 Acetaminophen 325 Mg Tablet PO 650 mg Q6H PRN Administration Pain, Mild (Pain Scale 1-3) Albuterol Sulfate 2 puff 04/14/21 22:14 04/16/21 01:49 Albuterol Sulfate 90 Mcg 8 Gm Inhaler INHALE 2 puff RQ4H PRN Administration Shortness of Breath/Wheezing Ascorbic Acid 1,000 mg 04/23/21 13:00 04/30/21 09:26 Ascorbic Acid 500 Mg Tablet PO 1,000 mg QID JUSTIN Administration Aspirin 81 mg 04/24/21 09:00 04/30/21 09:26 Aspirin 81 Mg Tab.Chew PO 81 mg DAILY JUSTIN Administration Benzonatate 100 mg 04/15/21 23:07 04/24/21 17:32 Benzonatate 100 Mg Capsule PO 100 mg TID PRN Administration Cough Enoxaparin Sodium 40 mg 04/23/21 10:15 04/30/21 09:25 Enoxaparin Sodium 40 Mg/0.4 Ml Syringe SUBCUT 40 mg BID JUSTIN Administration Melatonin 6 mg 04/14/21 22:14 04/29/21 22:05 Melatonin 3 Mg Tablet PO 6 mg BEDTIME PRN Administration Insomnia Ondansetron HCl 4 mg 04/16/21 02:28 04/16/21 02:51 Ondansetron Hcl 4 Mg/2 Ml Vial IVPUSH 4 mg Q8H PRN Administration Nausea and Vomiting Prednisone 40 mg 04/30/21 09:00 04/30/21 09:26 Prednisone 20 Mg Tablet PO 40 mg DAILY JUSTIN Administration Senna 17.2 mg 04/14/21 22:14 Sennosides 8.6 Mg Tablet PO BEDTIME PRN Constipation Sodium Chloride 3 ml 04/15/21 00:00 04/30/21 09:25 0.9 % Sodium Chloride Flush 3 Ml Syringe IVFLUSH 3 ml QSHIFT JUSTIN Administration Thiamine HCl 200 mg 04/23/21 21:00 04/30/21 09:26 Thiamine Hcl 100 Mg Tablet PO 200 mg BID JUSTIN Administration Trazodone HCl 50 mg 04/23/21 11:14 04/29/21 22:05 Trazodone Hcl 50 Mg Tablet PO 50 mg BEDTIME PRN Administration Insomnia Vitamin D 50 mcg 04/23/21 10:00 04/30/21 09:26 Cholecalciferol (Vitamin D3) 25 Mcg Tablet PO 50 mcg DAILY JUSTIN Administration Labs CBC & Chem 7: 04/29/21 05:23 04/29/21 05:23 Labs: Laboratory Results - last 24 hr 04/29/21 13:05 COVID-19 ([facility]) Negative COVID-19 Clin Com See Note Microbiology Microbiology Results: Microbiology 04/14/21 19:39 Blood - Subclavian Blood Culture - Final No growth after 5 days. 04/14/21 19:39 Blood - Subclavian Blood Culture - Final No growth after 5 days. Quality Stroke Does the patient have a stroke diagnosis?: No VTE Prior VTE?: No VTE Risk Level:: Medical - moderate - high VTE Device Contraindication: Treatment Not Indicated VTE Drug Contraindication: N/A - Med Ordered
[2021-04-30 14:06] LABS: Ferritin 651 ng/mL (20-250)
--- NOTE | 2021-04-30 14:56 | MHC.CM.PN ---
Male 20 DX Covid. [facility] is following patient for discharge. New information has been sent to the facility for review. Labs have been requested for AUTH tomorrow. The patient 1st covid+ result 04/07 or per pt. [facility] has been notified Pt > 20 days recovered. CM will follow.
[2021-04-30 16:00] VITALS: BP 127/81; PULSE 120; RESP 22; TEMP 36.3; O2SAT 94
[2021-04-30 20:00] VITALS: BP 138/69; PULSE 113; RESP 22; TEMP 36.5; O2SAT 92
[2021-04-30] MEDS: traZODone HCL 50 MG TABLET PO (23:00)
[2021-04-30] MEDS: Melatonin 3 MG TABLET 6 MG PO (23:00)
[2021-05-01] VITALS: BP 128/68; PULSE 105; RESP 20; TEMP 36.4; O2SAT 94
[2021-05-01 04:00] VITALS: BP 123/71; PULSE 93; RESP 18; TEMP 36.5; O2SAT 95
[2021-05-01 06:33] LABS: Hematocrit 41.6 % (42-52); Hemoglobin 14.5 g/dl (14.0-18.0); Mean Corpuscular HGB Conc 34.9 g/dl (31.0-36.0); Mean Corpuscular Hemoglobin 30.4 pg (27.0-33.0); Mean Corpuscular Volume 87.2 fL (80-98); Mean Platelet Volume 9.8 fL (9.4-12.4); NRBC Pct Auto 0.2 /100WBC (0.0-0.2); Platelet Count 226 X10*3/uL (160-400); Red Blood Count 4.77 X10*6/uL (4.60-5.80); Red Cell Distribution Width 13.7 % (11.0-16.0); White Blood Count 11.2 X10*3/uL (4.8-10.8)
[2021-05-01 07:14] LABS: Anion Gap 14 (12-20); Blood Urea Nitrogen 19 mg/dL (9-16); Calcium 8.6 mg/dL (8.4-10.2); Carbon Dioxide 23 mmol/L (22-29); Chloride 108 mmol/L (96-108); Creatinine Clr Calc Pharmacy 234.5; Estimated Glomerular Filt Rate > 60; Glucose Random 80 mg/dL (60-115); Lactate Dehydrogenase 274 U/L (118-273); Potassium 4.2 mmol/L (3.3-5.1); Sodium 141 mmol/L (135-145)
[2021-05-01 08:00] VITALS: BP 111/54; PULSE 64; RESP 19; TEMP 36.9; O2SAT 96
[2021-05-01] MEDS: Cholecalciferol (Vitamin D3) 25 MCG TABLET 50 MCG PO (09:43)
[2021-05-01] MEDS: predniSONE 20 MG TABLET 40 MG PO (09:43)
[2021-05-01] MEDS: Aspirin 81 MG TAB.CHEW PO (09:43)
[2021-05-01] MEDS: 0.9 % Sodium Chloride Flush 3 ML SYRINGE IVFLUSH ×2 (09:44→16:06)
[2021-05-01] MEDS: Enoxaparin Sodium 40 MG/0.4 ML SYRINGE SUBCUT (09:44)
[2021-05-01 10:56] VITALS: BP 116/60; PULSE 103; RESP 23; TEMP 36.6; O2SAT 94
--- NOTE | 2021-05-01 12:09 | HO.PM.IMPN ---
Subjective Subjective Date of Service: 05/01/21 Interval History: Seen and examined this morning Follow-up for COVID pneumonia Oxygen demand unchanged. patient denies change in breathing. No significant cough Review of Systems Review of Systems: Yes all other systems are reviewed and are negative Constitutional Constitutional: Denies chills and Denies fever(s) Cardiovascular Cardiovascular: Denies chest pain Gastrointestinal Gastrointestinal: Denies abdominal pain Physical Exam Vital Signs: Vital Signs: Last Vital Signs Temp 97.8 F 05/01/21 10:56 Pulse 103 H 05/01/21 10:56 Resp 23 H 05/01/21 10:56 BP 116/60 05/01/21 10:56 Pulse Ox 94 05/01/21 10:56 Oxygen Flow Rate 3 04/14/21 18:07 Body Mass Index 38.4 Const: General: comfortable, no acute distress and alert Nutritional Appearance: well nourished Orientation/consciousness: patient oriented x3 HENMT: Head: Yes normocephalic and Yes atraumatic Eyes: Sclerae: sclerae normal Chest: Chest palpation & inspection: normal inspection of the chest Resp: Effort & Inspection: normal respiratory effort and no respiratory distress Cardio: Rate: regular rate Rhythm: regular rhythm GI: Palpation (GI): Soft to palpation and nontender Neuro: General: patient oriented x3 Cranial nerves: Yes CN's II-XII intact bilaterally and Yes Bilaterally intact EOM present Objective Data Current Medications Generic Name Dose Route Start Last Admin Trade Name Freq PRN Reason Stop Dose Admin Acetaminophen 650 mg 04/14/21 22:14 04/16/21 21:58 Acetaminophen 325 Mg Tablet PO 650 mg Q6H PRN Administration Pain, Mild (Pain Scale 1-3) Albuterol Sulfate 2 puff 04/14/21 22:14 04/16/21 01:49 Albuterol Sulfate 90 Mcg 8 Gm Inhaler INHALE 2 puff RQ4H PRN Administration Shortness of Breath/Wheezing Aspirin 81 mg 04/24/21 09:00 05/01/21 09:43 Aspirin 81 Mg Tab.Chew PO 81 mg DAILY JUSTIN Administration Benzonatate 100 mg 04/15/21 23:07 04/24/21 17:32 Benzonatate 100 Mg Capsule PO 100 mg TID PRN Administration Cough Enoxaparin Sodium 40 mg 05/01/21 09:00 05/01/21 09:44 Enoxaparin Sodium 40 Mg/0.4 Ml Syringe SUBCUT 40 mg DAILY JUSTIN Administration Melatonin 6 mg 04/14/21 22:14 04/30/21 23:00 Melatonin 3 Mg Tablet PO 6 mg BEDTIME PRN Administration Insomnia Ondansetron HCl 4 mg 04/16/21 02:28 04/16/21 02:51 Ondansetron Hcl 4 Mg/2 Ml Vial IVPUSH 4 mg Q8H PRN Administration Nausea and Vomiting Prednisone 40 mg 04/30/21 09:00 05/01/21 09:43 Prednisone 20 Mg Tablet PO 40 mg DAILY JUSTIN Administration Senna 17.2 mg 04/14/21 22:14 Sennosides 8.6 Mg Tablet PO BEDTIME PRN Constipation Sodium Chloride 3 ml 04/15/21 00:00 05/01/21 09:44 0.9 % Sodium Chloride Flush 3 Ml Syringe IVFLUSH 3 ml QSHIFT JUSTIN Administration Trazodone HCl 50 mg 04/23/21 11:14 04/30/21 23:00 Trazodone Hcl 50 Mg Tablet PO 50 mg BEDTIME PRN Administration Insomnia Vitamin D 50 mcg 04/23/21 10:00 05/01/21 09:43 Cholecalciferol (Vitamin D3) 25 Mcg Tablet PO 50 mcg DAILY JUSTIN Administration Labs CBC & Chem 7: 05/01/21 05:26 05/01/21 05:26 Labs: Laboratory Results - last 24 hr 04/30/21 05/01/21 05/01/21 13:07 05:26 05:26 MCV 87.2 MCH 30.4 MCHC 34.9 RDW 13.7 Plt Count 226 D MPV 9.8 Absolute Nucleated RBC 0.020 H Nucleated RBC % (auto) 0.2 Anion Gap 14 Estim Creat Clear Calc 234.5 Estimated GFR > 60 Random Glucose 80 D Calcium 8.6 Ferritin 651 H Lactate Dehydrogenase 274 H Assessment and Plan (1) Acquired respiratory distress syndrome: Status: Acute Assessment and Plan: This is a 20 yo unvaccinated male admitted for hypoxic respiratory failure due to COVID-19 pneumonia acute hypoxic respiratory failure COVID-19 pneumonia (ARDS) viral sepsis CXR mildly improved from 04/24/21 - weaned off high flow, now on venti mask - s/p tocilizumab - stop methylprednisolone 80 mg bid and change to prednisone 40mg daily, will start taper, intermediate-dose LMWH change to daily - doxycycline stopped - inflammatory markers checked 04/26 and all improved - still requiring high oxygen amounts and will do well in LTAC or pulm rehab to recover - respiratory following anxiety - seen by CARE team VTE ppx - lovenox dispo- may qualify for LTACH- CM working on this Attending Dr. Saucedo Quality Stroke Does the patient have a stroke diagnosis?: No VTE Prior VTE?: No VTE Risk Level:: Medical - moderate - high VTE Device Contraindication: Treatment Not Indicated VTE Drug Contraindication: N/A - Med Ordered
[2021-05-01 16:00] VITALS: BP 126/64; PULSE 110; RESP 24; TEMP 36.3; O2SAT 97
[2021-05-01 19:35] VITALS: BP 146/71; PULSE 106; RESP 20; TEMP 36.8; O2SAT 95
[2021-05-01] MEDS: Melatonin 3 MG TABLET 6 MG PO (22:36)
[2021-05-02] VITALS (7 sets, daily range): BP systolic 117–136; BP diastolic 64–84; PULSE 90–125; RESP 18–20; TEMP 35.8–37.2; O2SAT 94–98
[2021-05-02] MEDS: 0.9 % Sodium Chloride Flush 3 ML SYRINGE IVFLUSH ×4 (00:01→22:20)
[2021-05-02] MEDS: predniSONE 20 MG TABLET 40 MG PO (09:10)
[2021-05-02] MEDS: Cholecalciferol (Vitamin D3) 25 MCG TABLET 50 MCG PO (09:10)
[2021-05-02] MEDS: Aspirin 81 MG TAB.CHEW PO (09:10)
[2021-05-02] MEDS: Enoxaparin Sodium 40 MG/0.4 ML SYRINGE SUBCUT (09:11)
--- NOTE | 2021-05-02 13:13 | HO.PM.IMPN ---
Subjective Subjective Date of Service: 05/02/21 Interval History: seen and examined this morning no overnight events no change in respiratory status Review of Systems Review of Systems: Yes all other systems are reviewed and are negative Constitutional Constitutional: Denies chills and Denies fever(s) Cardiovascular Cardiovascular: Denies chest pain Gastrointestinal Gastrointestinal: Denies abdominal pain Physical Exam Vital Signs: Vital Signs: Last Vital Signs Temp 96.5 F L 05/02/21 12:00 Pulse 125 H 05/02/21 12:00 Resp 20 05/02/21 12:00 BP 132/68 05/02/21 12:00 Pulse Ox 95 05/02/21 12:00 Oxygen Flow Rate 3 04/14/21 18:07 Body Mass Index 38.4 Const: General: comfortable, no acute distress and alert Nutritional Appearance: well nourished Orientation/consciousness: patient oriented x3 HENMT: Head: Yes normocephalic and Yes atraumatic Eyes: Sclerae: sclerae normal Chest: Chest palpation & inspection: normal inspection of the chest Resp: Effort & Inspection: normal respiratory effort and no respiratory distress Cardio: Rate: regular rate Rhythm: regular rhythm GI: Palpation (GI): Soft to palpation and nontender Neuro: General: patient oriented x3 Cranial nerves: Yes CN's II-XII intact bilaterally and Yes Bilaterally intact EOM present Objective Data Current Medications Generic Name Dose Route Start Last Admin Trade Name Freq PRN Reason Stop Dose Admin Acetaminophen 650 mg 04/14/21 22:14 04/16/21 21:58 Acetaminophen 325 Mg Tablet PO 650 mg Q6H PRN Administration Pain, Mild (Pain Scale 1-3) Albuterol Sulfate 2 puff 04/14/21 22:14 04/16/21 01:49 Albuterol Sulfate 90 Mcg 8 Gm Inhaler INHALE 2 puff RQ4H PRN Administration Shortness of Breath/Wheezing Aspirin 81 mg 04/24/21 09:00 05/02/21 09:10 Aspirin 81 Mg Tab.Chew PO 81 mg DAILY JUSTIN Administration Benzonatate 100 mg 04/15/21 23:07 04/24/21 17:32 Benzonatate 100 Mg Capsule PO 100 mg TID PRN Administration Cough Enoxaparin Sodium 40 mg 05/01/21 09:00 05/02/21 09:11 Enoxaparin Sodium 40 Mg/0.4 Ml Syringe SUBCUT 40 mg DAILY JUSTIN Administration Melatonin 6 mg 04/14/21 22:14 05/01/21 22:36 Melatonin 3 Mg Tablet PO 6 mg BEDTIME PRN Administration Insomnia Ondansetron HCl 4 mg 04/16/21 02:28 04/16/21 02:51 Ondansetron Hcl 4 Mg/2 Ml Vial IVPUSH 4 mg Q8H PRN Administration Nausea and Vomiting Prednisone 40 mg 04/30/21 09:00 05/02/21 09:10 Prednisone 20 Mg Tablet PO 40 mg DAILY JUSTIN Administration Senna 17.2 mg 04/14/21 22:14 Sennosides 8.6 Mg Tablet PO BEDTIME PRN Constipation Sodium Chloride 3 ml 04/15/21 00:00 05/02/21 09:10 0.9 % Sodium Chloride Flush 3 Ml Syringe IVFLUSH 3 ml QSHIFT JUSTIN Administration Trazodone HCl 50 mg 04/23/21 11:14 04/30/21 23:00 Trazodone Hcl 50 Mg Tablet PO 50 mg BEDTIME PRN Administration Insomnia Vitamin D 50 mcg 04/23/21 10:00 05/02/21 09:10 Cholecalciferol (Vitamin D3) 25 Mcg Tablet PO 50 mcg DAILY JUSTIN Administration Labs CBC & Chem 7: 05/01/21 05:26 05/01/21 05:26 Assessment and Plan (1) Acquired respiratory distress syndrome: Status: Acute Assessment and Plan: This is a 20 yo unvaccinated male admitted for hypoxic respiratory failure due to COVID-19 pneumonia acute hypoxic respiratory failure COVID-19 pneumonia (ARDS) viral sepsis - weaned off high flow, on venti mask; wean as tolerated - s/p tocilizumab - continue prednisone 40mg daily, will start taper, intermediate-dose LMWH change to daily - doxycycline stopped - inflammatory markers checked 04/26 and all improved - still requiring high oxygen amounts and will do well in LTAC or pulm rehab to recover - respiratory following anxiety - seen by CARE team VTE ppx - lovenox dispo- may qualify for LTACH- CM working on this Attending Dr. Saucedo Quality Stroke Does the patient have a stroke diagnosis?: No VTE Prior VTE?: No VTE Risk Level:: Medical - moderate - high VTE Device Contraindication: Treatment Not Indicated VTE Drug Contraindication: N/A - Med Ordered
[2021-05-02] MEDS: Melatonin 3 MG TABLET 6 MG PO (22:19)
[2021-05-02] MEDS: traZODone HCL 50 MG TABLET PO (22:20)
[2021-05-03] VITALS (7 sets, daily range): BP systolic 111–136; BP diastolic 58–74; PULSE 77–112; RESP 18; TEMP 36.1–37.2; O2SAT 92–97
--- NOTE | 2021-05-03 09:19 | MHC.CM.PN ---
CM RECEIVED A PHONE CALL FROM [facility] LIAALEXEY SINGH, WHO REPORTED SHE HAD RECEIVED A MESSAGE FROM [employer] LATE WEDNESDAY THAT STATED THE AUTH REQUEST WAS IN REVIEW. [employer] IS NOT OPEN ON THE WEEKEND HOWEVER [employer] EXPECTS A RESPONSE ON WEDNESDAY. CURRENT DC PLAN IS LTAC LOC AT [facility] PENDING INSURANCE AUTH PT WILL NEED AMBULANCE TRANSPORT
[2021-05-03] MEDS: 0.9 % Sodium Chloride Flush 3 ML SYRINGE IVFLUSH ×3 (09:43→21:51)
[2021-05-03] MEDS: Cholecalciferol (Vitamin D3) 25 MCG TABLET 50 MCG PO (09:43)
[2021-05-03] MEDS: Aspirin 81 MG TAB.CHEW PO (09:43)
[2021-05-03] MEDS: predniSONE 20 MG TABLET 40 MG PO (09:43)
[2021-05-03] MEDS: Enoxaparin Sodium 40 MG/0.4 ML SYRINGE SUBCUT (09:43)
--- NOTE | 2021-05-03 10:59 | PM.IMPN ---
Progress Note: A&P (1) Acquired respiratory distress syndrome: Status: Acute (2) COVID-19: Status: Acute Assessment and Plan: This is a 20 yo unvaccinated male admitted for hypoxic respiratory failure due to COVID-19 pneumonia acute hypoxic respiratory failure Doing better, on 5 liters NC, sating 92-94% possible discharge home in next few days COVID-19 pneumonia (ARDS) viral sepsis - s/p tocilizumab - continue prednisone 40mg daily, will start taper, intermediate-dose LMWH change to daily - doxycycline stopped - inflammatory markers checked 04/26 and all improved - respiratory following anxiety - seen by CARE team VTE ppx - lovenox dispo- Likely home when medically stable Attending Dr. Saucedo Subjective Subjective Date of Service: 05/03/21 Interval History: Follow up covid 19 doing better more talkative on NC 5 liters Physical Exam Vital Signs: Vital Signs: Last Vital Signs Temp 97 F 05/03/21 08:00 Pulse 99 05/03/21 08:00 Resp 18 05/03/21 08:00 BP 113/58 L 05/03/21 08:00 Pulse Ox 93 05/03/21 08:00 Oxygen Flow Rate 3 04/14/21 18:07 Body Mass Index 38.4 Appearing in no acute distress lung sounds are clear to auscultation heart regular rate rhythm, clear S1, S2 positive bowel sounds, abdomen is soft, nontender neuro patient is alert x3, no focal deficits Objective Data Current Medications Generic Name Dose Route Start Last Admin Trade Name Freq PRN Reason Stop Dose Admin Acetaminophen 650 mg 04/14/21 22:14 04/16/21 21:58 Acetaminophen 325 Mg Tablet PO 650 mg Q6H PRN Administration Pain, Mild (Pain Scale 1-3) Albuterol Sulfate 2 puff 04/14/21 22:14 04/16/21 01:49 Albuterol Sulfate 90 Mcg 8 Gm Inhaler INHALE 2 puff RQ4H PRN Administration Shortness of Breath/Wheezing Aspirin 81 mg 04/24/21 09:00 05/03/21 09:43 Aspirin 81 Mg Tab.Chew PO 81 mg DAILY JUSTIN Administration Benzonatate 100 mg 04/15/21 23:07 04/24/21 17:32 Benzonatate 100 Mg Capsule PO 100 mg TID PRN Administration Cough Enoxaparin Sodium 40 mg 05/01/21 09:00 05/03/21 09:43 Enoxaparin Sodium 40 Mg/0.4 Ml Syringe SUBCUT 40 mg DAILY JUSTIN Administration Melatonin 6 mg 04/14/21 22:14 05/02/21 22:19 Melatonin 3 Mg Tablet PO 6 mg BEDTIME PRN Administration Insomnia Ondansetron HCl 4 mg 04/16/21 02:28 04/16/21 02:51 Ondansetron Hcl 4 Mg/2 Ml Vial IVPUSH 4 mg Q8H PRN Administration Nausea and Vomiting Prednisone 40 mg 04/30/21 09:00 05/03/21 09:43 Prednisone 20 Mg Tablet PO 40 mg DAILY JUSTIN Administration Senna 17.2 mg 04/14/21 22:14 Sennosides 8.6 Mg Tablet PO BEDTIME PRN Constipation Sodium Chloride 3 ml 04/15/21 00:00 05/03/21 09:43 0.9 % Sodium Chloride Flush 3 Ml Syringe IVFLUSH 3 ml QSHIFT JUSTIN Administration Trazodone HCl 50 mg 04/23/21 11:14 05/02/21 22:20 Trazodone Hcl 50 Mg Tablet PO 50 mg BEDTIME PRN Administration Insomnia Vitamin D 50 mcg 04/23/21 10:00 05/03/21 09:43 Cholecalciferol (Vitamin D3) 25 Mcg Tablet PO 50 mcg DAILY JUSTIN Administration Labs CBC & Chem 7: 05/01/21 05:26 05/01/21 05:26 Microbiology Microbiology Results: Microbiology 04/14/21 19:39 Blood - Subclavian Blood Culture - Final No growth after 5 days. 04/14/21 19:39 Blood - Subclavian Blood Culture - Final No growth after 5 days. Quality Stroke Does the patient have a stroke diagnosis?: No VTE Prior VTE?: No VTE Risk Level:: Medical - moderate - high VTE Device Contraindication: Treatment Not Indicated VTE Drug Contraindication: N/A - Med Ordered
[2021-05-03] MEDS: traZODone HCL 50 MG TABLET PO (21:51)
[2021-05-04] VITALS (8 sets, daily range): BP systolic 97–123; BP diastolic 54–76; PULSE 72–129; RESP 18–20; TEMP 35.5–37.2; O2SAT 91–97
--- NOTE | 2021-05-04 08:09 | PM.IMPN ---
Progress Note: A&P (1) Acquired respiratory distress syndrome: Status: Acute <Roseanna Adame NP - Last Filed: 05/04/21 12:34> (2) COVID-19: Status: Acute <Roseanna Adame NP - Last Filed: 05/04/21 12:34> Assessment and Plan: This is a 20 yo unvaccinated male admitted for hypoxic respiratory failure due to COVID-19 pneumonia acute hypoxic respiratory failure Doing better, on 3 liters NC, sating 92-94% possible discharge home in next few days COVID-19 pneumonia (ARDS) viral sepsis - s/p tocilizumab - continue prednisone 40mg daily, will start taper, intermediate-dose LMWH change to daily - doxycycline stopped - inflammatory markers checked 04/26 and all improved - respiratory following, home o2 eval today anxiety - seen by CARE team VTE ppx - lovenox dispo- Likely home when medically stable <Roseanna Adame NP - Last Filed: 05/04/21 12:34> Subjective Subjective Date of Service: 05/04/21 <Roseanna Adame NP - Last Filed: 05/04/21 12:34> 05/04/21 <Destiny Rojas MD - Last Filed: 05/04/21 13:29> Interval History: Follow up covid 19 doing better on 3lnc sat 92-95% home o2 eval <Roseanna Adame NP - Last Filed: 05/04/21 12:34> Physical Exam Vital Signs: Vital Signs: Last Vital Signs Temp 96 F L 05/04/21 04:00 Pulse 72 05/04/21 04:00 Resp 18 05/04/21 04:00 BP 97/58 L 05/04/21 04:00 Pulse Ox 92 05/04/21 04:00 Oxygen Flow Rate 3 04/14/21 18:07 Body Mass Index 38.4 <Roseanna Adame NP - Last Filed: 05/04/21 12:34> Appearing in no acute distress lung sounds are clear to auscultation heart regular rate rhythm, clear S1, S2 positive bowel sounds, abdomen is soft, nontender neuro patient is alert x3, no focal deficits <Roseanna Adame NP - Last Filed: 05/04/21 12:34> Objective Data Current Medications Generic Name Dose Route Start Last Admin Trade Name Freq PRN Reason Stop Dose Admin Acetaminophen 650 mg 04/14/21 22:14 04/16/21 21:58 Acetaminophen 325 Mg Tablet PO 650 mg Q6H PRN Administration Pain, Mild (Pain Scale 1-3) Albuterol Sulfate 2 puff 04/14/21 22:14 04/16/21 01:49 Albuterol Sulfate 90 Mcg 8 Gm Inhaler INHALE 2 puff RQ4H PRN Administration Shortness of Breath/Wheezing Aspirin 81 mg 04/24/21 09:00 05/03/21 09:43 Aspirin 81 Mg Tab.Chew PO 81 mg DAILY JUSTIN Administration Benzonatate 100 mg 04/15/21 23:07 04/24/21 17:32 Benzonatate 100 Mg Capsule PO 100 mg TID PRN Administration Cough Enoxaparin Sodium 40 mg 05/01/21 09:00 05/03/21 09:43 Enoxaparin Sodium 40 Mg/0.4 Ml Syringe SUBCUT 40 mg DAILY JUSTIN Administration Melatonin 6 mg 04/14/21 22:14 05/02/21 22:19 Melatonin 3 Mg Tablet PO 6 mg BEDTIME PRN Administration Insomnia Ondansetron HCl 4 mg 04/16/21 02:28 04/16/21 02:51 Ondansetron Hcl 4 Mg/2 Ml Vial IVPUSH 4 mg Q8H PRN Administration Nausea and Vomiting Prednisone 40 mg 04/30/21 09:00 05/03/21 09:43 Prednisone 20 Mg Tablet PO 40 mg DAILY JUSTIN Administration Senna 17.2 mg 04/14/21 22:14 Sennosides 8.6 Mg Tablet PO BEDTIME PRN Constipation Sodium Chloride 3 ml 04/15/21 00:00 05/03/21 21:51 0.9 % Sodium Chloride Flush 3 Ml Syringe IVFLUSH 3 ml QSHIFT JUSTIN Administration Trazodone HCl 50 mg 04/23/21 11:14 05/03/21 21:51 Trazodone Hcl 50 Mg Tablet PO 50 mg BEDTIME PRN Administration Insomnia Vitamin D 50 mcg 04/23/21 10:00 05/03/21 09:43 Cholecalciferol (Vitamin D3) 25 Mcg Tablet PO 50 mcg DAILY JUSTIN Administration <Roseanna Adame NP - Last Filed: 05/04/21 12:34> Labs CBC & Chem 7: : 05/01/21 05:26 05/01/21 05:26 <Roseanna Adame NP - Last Filed: 05/04/21 12:34> Microbiology Microbiology Results: Microbiology 04/14/21 19:39 Blood - Subclavian Blood Culture - Final No growth after 5 days. 04/14/21 19:39 Blood - Subclavian Blood Culture - Final No growth after 5 days. <Roseanna Adame NP - Last Filed: 05/04/21 12:34> Quality Stroke Does the patient have a stroke diagnosis?: No <Roseanna Adame NP - Last Filed: 05/04/21 12:34> VTE Prior VTE?: No <Roseanna Adame NP - Last Filed: 05/04/21 12:34> VTE Risk Level:: Medical - moderate - high <Roseanna Adame NP - Last Filed: 05/04/21 12:34> VTE Device Contraindication: Treatment Not Indicated <Roseanna Adame NP - Last Filed: 05/04/21 12:34> VTE Drug Contraindication: N/A - Med Ordered <Roseanna Adame NP - Last Filed: 05/04/21 12:34>
[2021-05-04] MEDS: predniSONE 20 MG TABLET 40 MG PO (10:09)
[2021-05-04] MEDS: Cholecalciferol (Vitamin D3) 25 MCG TABLET 50 MCG PO (10:09)
[2021-05-04] MEDS: Aspirin 81 MG TAB.CHEW PO (10:09)
[2021-05-04] MEDS: Enoxaparin Sodium 40 MG/0.4 ML SYRINGE SUBCUT (10:09)
[2021-05-04] MEDS: 0.9 % Sodium Chloride Flush 3 ML SYRINGE IVFLUSH ×3 (10:10→23:17)
[2021-05-04] MEDS: traZODone HCL 50 MG TABLET PO (23:17)
[2021-05-05 03:31] VITALS: BP 119/56; PULSE 83; RESP 20; TEMP 37; O2SAT 93
[2021-05-05] MEDS: predniSONE 20 MG TABLET 40 MG PO (07:21)
[2021-05-05] MEDS: Enoxaparin Sodium 40 MG/0.4 ML SYRINGE SUBCUT (07:21)
[2021-05-05] MEDS: Cholecalciferol (Vitamin D3) 25 MCG TABLET 50 MCG PO (07:22)
[2021-05-05] MEDS: 0.9 % Sodium Chloride Flush 3 ML SYRINGE IVFLUSH (07:22)
[2021-05-05] MEDS: Aspirin 81 MG TAB.CHEW PO (07:22)
[2021-05-05 08:00] VITALS: BP 111/62; PULSE 114; RESP 22; TEMP 36.3; O2SAT 95
[2021-05-05 11:14] VITALS: BP 121/68; PULSE 104; RESP 105; O2SAT 94
--- NOTE | 2021-05-05 11:37 | P.DS_ITS ---
DS: Providers Provider Date of Service: 05/05/21 Date of admission: 04/14/21 22:14 Date of discharge: 05/05/21 Primary care physician: Pedro Whitmore MD Admitting clinician: Raghavendra Mccann Attending physician on admission: Raghavendra Mccann Consults: 04/14/21 22:14 Consult to Infectious Diseases Routine Consulting Provider: Annabelle Francis Reason for consultation: COVID positive/hypoxia 04/23/21 12:51 Consult to Pulmonology Routine Consulting Provider: Herman Jackman Reason for consultation: covid, continuous hypoxia Has provider been notified: No 04/24/21 07:48 Consult to Care Team Routine Comment: Reason for consultation: anxiety, covid 19 Attending physician on discharge: Gee Saucedo Discharging clinician: Roseanna Adame DS: Diagnosis Discharge Diagnosis (1) Acquired respiratory distress syndrome: Status: Acute (2) COVID-19: Status: Acute DS: Medications Discharge Medications Home Medications: Home Medications Medication Instructions Recorded Confirmed No Known Home Meds 04/14/21 04/14/21 DS: Summary Hospital Course Hospital Course: HP as per admitting provider 20-year-old male with no significant past medical history presented to the hospital with a chief complaint of shortness of breath.? Patient reports that his roommate has COVID-19 positive and was exposed about 7 days ago and over the past few days he has been having generalized weakness/with the dizziness shortness of breath/dyspnea on exertion, dry cough.? Denies any chest pain or palpitations.? Complains of subjective fevers. Denies any sputum production. Patient does complains of nausea vomiting and diarrhea; denies any abdominal discomfort. Denies any? symptoms. Review of all other systems is negative except mentioned above ER course: Per ER team patient on presentation noted to be 85% on room air, not in respiratory distress; on 2 L of oxygen patient oxygenation improved to 93%.? CT chest showed no evidence of pulmonary embolism but noted diffuse ground-glass opacities consistent COVID-19 infection.? Patient also received empiric ceftriaxone and azithromycin.? Admitted to the hospital for further management . COVID 19 pneumonia. He has been treated for 21 days. he has received several treatments including tocilizumab, Decadron, solumedrol, doxycycline, vitamin c, vitamon D, thiamine, twice daily lovenox. He seemed to get worse before he got better and was requiring High flow oxygen, then transitioned to venti mask, then to nasal canula the last 3 days and now on room air. He was seen and evaluated by pulmonology and Infectious disease during his admission. He had a long haul with his oxygen requirements but he seemed to turn the corner pretty quickly the last week. He will be discharged home with no oxygen and he may follow up with pulmonology if he develops post covid symptoms. Time Spent with Patient Time attestation: Total time spent providing and/or coordinating discharge services: Discharge coordination time: Greater than 30 minutes Quality: Stroke Does the patient have a stroke diagnosis?: No Physical Exam Vital Signs: Vital Signs: Last Vital Signs Temp 97.3 F 05/05/21 08:00 Pulse 104 H 05/05/21 11:14 Resp 105 H 05/05/21 11:14 BP 121/68 05/05/21 11:14 Pulse Ox 94 05/05/21 11:14 Oxygen Flow Rate 3 04/14/21 18:07 Body Mass Index 38.4 Discharge Plan Discharge Anticipated Discharge Date/Time: 05/05/21 11:28 Patient Disposition: Home, Self-Care Discharge Diagnosis: COVID-19 pneumonia Referrals: Herman Jackman MD [Physician] - None (Follow up as needed for Post Covid syndrome ) Pedro Whitmore MD [Primary Care Provider] - 1 Week Discharge Medications: No Action No Known Home Meds RF: 0 Discharge Orders: Discharge Order (Routine); Ordered 05/05/21 Ordered By: Roseanna Adame Diet: advance to usual diet Activity on Discharge: As tolerated Stand Alone Forms: Patient Portal Discharge page, Work/School Release Print Language: Vietnamese Care Plan Goals: Resolution of deconditioning Health Concerns: Covid 19 pneumonia Plan of Treatment: You have been treated for covid 19 for 21 days. Your most recent covid test on 04/29/21 was negative. You are no longer requiring oxygen. Please monitor for post covid symptoms including fatigue and continued shortness of breath or overall lethargy. You may feel deconditioned for a few weeks. Take it slow and avoid high impact activities. You may follow with a wheel truing machine tender as needed if your recovery does not seem to be getting better. Assessment: See discharge summary
--- NOTE | 2021-05-05 11:38 | MHC.CM.PN ---
R/T medical status improvement, Patient has been medically cleared for dc to home today, no services and no home O2.
== END 2021-05-05 12:53 | disposition home or self-care (01) | DRG 720 ==
LOC: HO.ED 22:55 → HO.EDOVER 23:16 → HO.IMC 04-15 00:22
PROVIDERS: Family Medicine; Internal Medicine; Nurse Practitioner Acute Care; Physician Assistant; Admitting Provider Hospitalist; Emergency Provider Emergency Medicine; PCP Pediatrics Adolescent Medicine; Visit Provider Family Medicine
DX: A41.89 Other specified sepsis (principal); U07.1 COVID-19; J12.82 Pneumonia due to coronavirus disease 2019; J80 Acute respiratory distress syndrome; F41.9 Anxiety disorder, unspecified; R74.01 Elevation of levels of liver transaminase levels; J12.81 Pneumonia due to SARS-associated coronavirus; E66.8 Other obesity; Z68.38 Body mass index [BMI] 38.0-38.9, adult
CPT/HCPCS: 36415; 36600; 71045; 71275; 80048; 80053; 80076; 82728; 82803; 83605; 83615; 84145; 84484; 85025; 85027; 85379; 85652; 86140; 87040; 87389; 87635; 93005; 93306; 96361; 96365; 96375; 97163; 99285; J0456; J0696; J1100; J1650; J1885; J2270; J2405; J2543; J2920; J2930; J3262; J3370; J8540; Q9967